=== PATIENT | male | born 1940 | race Caucasian/White ===

== ENCOUNTER 2020-05-09 09:43 | Emergency (ER) | payer OTHER, MEDICARE, SELFPAY ==
[2020-05-09 09:53] VITALS: BP 117/56; PULSE 62; RESP 18; TEMP 37.4; O2SAT 97; BMI 27.6
--- NOTE | 2020-05-09 09:56 | XR_ITS ---
WS: [id number] EXAM: AP CHEST: PORTABLE UPRIGHT DATE OF EXAM: 05/09/2020, 1021 hours COMPARISON: Prior chest x-rays from 05/17/2015 and 10/25/2018 HISTORY: Patient is 79 years old with weakness for the last few days. Prior open heart surgery 2009. Currently has a cough. FINDINGS: The cardiac silhouette is stable. Considered minimally enlarged. The mediastinal contours again de monstrate postop sternotomy changes from prior surgery. The pulmonary vascularity is normal. Chron ic lung changes are again demonstrated. There is worsening pulmonary vascular congestion or interstit ial fibrotic changes. Apical capping bilaterally. No large area of consolidation. There is no effusi on or pneumothorax. No acute bony abnormality is seen. XR/XR chest 1V portable [id number] IMPRESSION: Progressive pulmonary vascular congestion versus worsening interstitial fibroti c change. No florid pulmonary edema. No consolidating pneumonia.
--- NOTE | 2020-05-09 10:00 | ED_ITS ---
HPI - General Adult General: Chief complaint: Extremity Injury, Lower Stated complaint: COUGH/N/FREQUENT URINATION/WEAKNESS Time Seen by Provider: 05/09/20 09:47 History of Present Illness: HPI narrative: Patient then complaint is that frequency of urination started about 10:00 last night he said he had P 3?1 bed and peed about every hour after going to bed. Denies any prostate problems. 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 Said he had a slight cough but is not concerned about that. Denies fever chills nausea or vomiting. Onset (ago): hour(s) Associated symptoms: Deny chest pain, dyspnea, headache(s), nausea, rash or vomiting Review of Systems Const: Denies: fever(s), chills or body aches Eyes: Denies: change in vision or blurry vision ENMT: Denies: throat pain or nasal congestion Card: Denies: chest pain or dyspnea on exertion Resp: Denies: dyspnea, productive cough or non-productive cough GI: Denies: abdominal pain, nausea or vomiting : Reports: urinary frequency; Denies: difficulty urinating Musc: Denies: extremity pain Skin/Breast: Denies: rash Neuro: Reports: other (Burning in her right foot last couple months that wakes him up from sleep at times); Denies: headache(s) Psych: Denies: anxiety or depression Gee/Lymph: Denies: easy bruising [facility] ED PFSH: Medical History (Updated 05/09/20 @ 10:56 by LA Diaz) ASHD (arteriosclerotic heart disease) BPH NOS w ur obs/LUTS Chest pain CKD (chronic kidney disease) Essential hypertension Hyperlipidemia Myocardial infarction Nocturia Tobacco abuse Surgical History Previous back surgery S/P angioplasty with stent S/P CABG (coronary artery bypass graft) Family History Father CAD (coronary artery disease) Other Myocardial infarction Social History Smoking and tobacco status: former smoker Alcohol intake: never Lives independently: Yes Marital status: / service: Yes status details: 3 YEARS branch: [employer] Current gender identity: Male Susy/Rastafarian: Quaker Physical Exam Const: COMMON NORMALS: no acute distress, average body habitus and patient oriented x3 HENMT: COMMON NORMALS: normocephalic HEAD & SCALP: normal to inspection and normocephalic FACE & SINUS: normal facial exam Eye: COMMON NORMALS: conjunctivae normal GENERAL EYE: appearance normal, both eyes and all related structures CONJUNCTIVA: Yes conjunctivae normal Neck/C-Spine: COMMON NORMALS: no JVD Chest: COMMONS NORMALS: normal inspection of the chest Resp: COMMON NORMALS: normal respiratory effort and clear to auscultation bilaterally AUSCULTATION: clear to auscultation bilaterally Cardio: COMMON NORMALS: no JVD, regular rate and regular rhythm RATE: regular rate RHYTHM: regular rhythm GI: COMMON NORMALS: Normal to inspection, nondistended, normoactive bowel sounds present Extremity: COMMON NORMALS: normal to inspection and full ROM Neuro: COMMON NORMALS: patient oriented x3 Course Vital Signs: Vital signs: Vital Signs Temperature 99.4 F 05/09/20 11:29 Pulse Rate 56 L 05/09/20 11:29 Respiratory Rate 16 05/09/20 11:29 Blood Pressure 122/68 05/09/20 11:29 Pulse Oximetry 98 05/09/20 11:29 MDM - General Adult MDM Narrative: Medical decision making narrative: I discussed with patient his lab results and his symptoms. Discussed with him his pulmonary congestion he has that is related to his coronary or vascular disease. Also discussed with him his prostate symptoms that he is having here in the ER and cough and cold medicines he has been taken. Vies patient needs follow-up with his family doctor and discuss may be changes prostate medicine he said he is tried saw palmetto without any success and also super beta prostate without success. Patient will follow-up for venous Doppler of his leg. Today he does not have any redness swelling pulse deficits are any obvious congestion in that leg. Lab Data: Labs: Lab Results 05/09/20 05/09/20 05/09/20 Range/Units 10:13 10:13 10:25 WBC 4.2 (4.0-10.0) 10^3/ uL RBC 4.73 (4.1-5.3) 10^6/u L Hgb 13.8 (11.7-16.6) g/dL Hct 41.8 L (42.0-52.0) % MCV 88.4 (80-94) fL MCH 29.2 (28.0-34.0) pg MCHC 33.0 (30.0-36.0) g/dL RDW 13.8 (12.1-15.1) % Plt Count 119 L (130-400) 10^3/c mm MPV 10.5 H (7.4-10.4) fL Neut % (Auto) 67.4 % Lymph % (Auto) 17.3 % [place] % (Auto) 12.7 % Eos % (Auto) 2.4 % Baso % (Auto) 0.0 % Neut # (Auto) 2.81 (1.8-7.7) 10^3/u L Lymph # (Auto) 0.7 L (0.8-4.8) 10^3/u L [place] # (Auto) 0.5 (0.2-0.9) 10^3/u L Eos # (Auto) 0.1 (0.0-0.8) 10^3/u L Baso # (Auto) 0.0 (0.0-0.1) 10^3/u L Nucleated RBC % (a uto) 0 % Nucleated RBCs # 0.0 /100WBC Sodium 132 L (136-145) mmol/L Potassium 4.4 (3.5-5.1) mmol/L Chloride 99 (98-107) mmol/L Carbon Dioxide 22 (22-29) mmol/L Anion Gap 15.4 (5-19) BUN 15 (8-23) mg/dL Creatinine 1.3 H (0.7-1.2) mg/dL GFR Calculation Not Reportable Glucose 106 (65-115) mg/dL Calculated Osmolal ity 271 L (285-295) mOsm/k g Calcium 8.3 L (8.5-10.5) mg/dL Total Bilirubin 0.3 (0.15-1.2) mg/dL AST 22 (0-40) U/L ALT 12 (0-41) U/L Alkaline Phosphata se 64 (40-130) IU/L Total Protein 7.3 (6.6-8.7) g/dL Albumin 4.3 (3.5-5.2) g/dL Globulin 3.0 (1.3-4.6) g/dL Urine Color Yellow (Yellow) Urine Appearance Clear (CLEAR) Urine pH 6 (5-7) Ur Specific Gravit y 1.015 (1.005-1.030) Urine Protein Neg (Negative) Urine Glucose (UA) Norm (Normal) Urine Ketones Negative (Negative) Urine Blood Neg (Negative) Urine Nitrate Negative (Negative) Urine Bilirubin Neg (Negative) Urine Urobilinogen Norm (Negative) mg/dL Ur Leukocyte Lenore ase Negative (Negative) Discharge Plan Discharge Patient Disposition: Home Clinical Impression: Benign prostatic hyperplasia Qualifiers: Lower urinary tract symptom presence: symptoms present Lower urinary tract symptom detail: urinary frequency Qualified Code(s): N40.1 - Benign prostatic hyperplasia with lower urinary tract symptoms Condition: Stable Prescriptions: No Action amlodipine 10 mg tablet 10 mg PO DAILY Qty: 90 RF: 6 tamsulosin 0.4 mg capsule 0.4 mg PO BID Qty: 180 RF: 3 aspirin [Adult Low Dose Aspirin] 81 mg tablet,delayed release (DR/EC) 81 mg PO DAILY RF: 0 omega-3 fatty acids [Fish Oil Concentrate] 1,000 mg capsule 2,000 mg PO DAILY RF: 0 isosorbide mononitrate 30 mg tablet extended release 24 hr 30 mg PO QAM RF: 0 nitroglycerin [Nitrostat] 0.4 mg tablet, sublingual 0.4 mg SUBLINGUAL Q5M PRNRF: 0 pravastatin 40 mg tablet 40 mg PO .HS RF: 0 losartan 25 mg tablet 25 mg PO BID Qty: 180 RF: 6 metoprolol tartrate 25 mg tablet 25 mg PO BID Qty: 180 RF: 6 Discharge Orders: Discharge Order (Routine); Ordered 05/09/20 Ordered By: Mario Antonio Referrals: Luc Monroe [Primary Care Provider] - Discharge Diet: Advance as tolerated Discharge Activity: Increase activity as tolerated Patient Instructions: Benign Prostatic Hypertrophy (ED) Activity Restrictions/Additional Instructions: Follow-up with your scheduled appointments and your primary care doctor as directed please Discharge Date/Time: 05/09/20 11:32 Coding Level of Care Code 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
[2020-05-09 10:08] VITALS: BP 118/54; PULSE 58; PULSE 60; RESP 18; TEMP 37.4; O2SAT 96
[2020-05-09 10:24] LABS: Eosinophils # 0.1 10^3/uL (0.0-0.8); Eosinophils % 2.4 %; Hematocrit 41.8 % (42.0-52.0); Hemoglobin 13.8 g/dL (11.7-16.6); Lymphocytes # 0.7 10^3/uL (0.8-4.8); Lymphocytes % 17.3 %; Mean Corpuscular Hemoglobin 29.2 pg (28.0-34.0); Mean Corpuscular Volume 88.4 fL (80-94); Mean Platelet Volume 10.5 fL (7.4-10.4); Monocytes # 0.5 10^3/uL (0.2-0.9); Monocytes % 12.7 %; Neutrophils # 2.81 10^3/uL (1.8-7.7); Neutrophils % 67.4 %; Nucleated Red Blood Cells % 0 %; Platelet Count 119 10^3/cmm (130-400); Red Blood Count 4.73 10^6/uL (4.1-5.3); Red Cell Distribution Width 13.8 % (12.1-15.1); White Blood Count 4.2 10^3/uL (4.0-10.0)
[2020-05-09 10:36] LABS: Add Urine Microscopic? NO
[2020-05-09 10:39] LABS: Alanine Aminotransferase 12 U/L (0-41); Albumin Level 4.3 g/dL (3.5-5.2); Alkaline Phosphatase 64 IU/L (40-130); Anion Gap 15.4 (5-19); Aspartate Amino Transferase 22 U/L (0-40); Blood Urea Nitrogen 15 mg/dL (8-23); Calcium 8.3 mg/dL (8.5-10.5); Carbon Dioxide 22 mmol/L (22-29); Chloride 99 mmol/L (98-107); Glucose 106 mg/dL (65-115); Osmolality Calculated 271 mOsm/kg (285-295); Potassium 4.4 mmol/L (3.5-5.1); Sodium 132 mmol/L (136-145); Total Bilirubin 0.3 mg/dL (0.15-1.2); Total Protein 7.3 g/dL (6.6-8.7)
[2020-05-09 10:49] LABS: Urine Appearance Clear (CLEAR); Urine Color Yellow (Yellow)
[2020-05-09 10:50] LABS: Bilirubin Urine Neg (Negative); Blood Urine Neg (Negative); Glucose Urine UA Norm (Normal); Ketones Urine Negative (Negative); Leukocyte Esterase Urine Negative (Negative); Nitrate Urine Negative (Negative); Protein Urine Neg (Negative); Specific Gravity, Urine 1.015 (1.005-1.030); Urobilinogen Urine Norm (Negative); pH Urine 6 (5-7)
[2020-05-09 11:29] VITALS: BP 122/68; PULSE 56; RESP 16; TEMP 37.4; O2SAT 98
== END 2020-05-09 11:32 | disposition home or self-care (01) ==
PROVIDERS: Emergency Provider Nurse Practitioner Family; PCP Internal Medicine
DX: N40.1 Benign prostatic hyperplasia with lower urinary tract symptoms (principal); Z79.82 Long term (current) use of aspirin; I10 Essential (primary) hypertension; E78.5 Hyperlipidemia, unspecified; I25.2 Old myocardial infarction; Z95.1 Presence of aortocoronary bypass graft; Z87.891 Personal history of nicotine dependence
CPT/HCPCS: 12345; 71045; 80053; 81003; 85025; 99283

== ENCOUNTER 2020-05-11 13:22 | Inpatient (IN) | payer OTHER, MEDICARE, SELFPAY ==
[2020-05-11] VITALS (62 sets, daily range): BP systolic 99–142; BP diastolic 53–84; PULSE 43–87; RESP 14–28; TEMP 36.5–37.9; O2SAT 93–99; BMI 27.3
--- NOTE | 2020-05-11 14:05 | XR_ITS ---
WS: [id number] EXAM: AP CHEST: PORTABLE UPRIGHT DATE OF EXAM: 05/11/2020, 1422 hours COMPARISON: Chest x-ray from 2 days prior. HISTORY: Patient is 79 years old with shortness of breath. Suspected: 19 infection.. FINDINGS: The cardiac silhouette is stable. Considered slightly enlarged. The mediastinal contours are simila r. Postop sternotomy changes from prior surgery noted. The pulmonary vascularity is congested. 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 There are worsening bilateral alveolar as well as interstitial infiltrates suggesting worsening bilateral pneumonia. There is no effusion or pneumothorax. Bone density is de creased. Multilevel degenerative changes are seen in the spine. XR/XR chest 1V portable [id number] IMPRESSION: Worsening bilateral pneumonia.
[2020-05-11] MEDS: dexamethasone 10 mg/mL INJ IVP (14:18)
[2020-05-11] MEDS: sodium chloride 0.9% 500 ML 999 ML IV (14:18)
[2020-05-11] MEDS: acetaminophen 500 mg Tablet 1000 MG PO (14:20)
[2020-05-11] MEDS: ondansetron 2 mg/ML SDV 2 mL 4 MG IVP (14:20)
[2020-05-11 14:26] LABS: Eosinophils % 0.3 %; Hematocrit 39.8 % (42.0-52.0); Hemoglobin 13.4 g/dL (11.7-16.6); Lymphocytes # 0.6 10^3/uL (0.8-4.8); Mean Corpuscular HGB Conc 33.7 g/dL (30.0-36.0); Mean Corpuscular Hemoglobin 29.3 pg (28.0-34.0); Mean Corpuscular Volume 86.9 fL (80-94); Mean Platelet Volume 11.1 fL (7.4-10.4); Monocytes # 0.4 10^3/uL (0.2-0.9); Monocytes % 10.8 %; Neutrophils # 2.49 10^3/uL (1.8-7.7); Neutrophils % 72.6 %; Nucleated Red Blood Cells % 0 %; Platelet Count 92 10^3/cmm (130-400); Red Blood Count 4.58 10^6/uL (4.1-5.3); Red Cell Distribution Width 13.7 % (12.1-15.1); White Blood Count 3.4 10^3/uL (4.0-10.0)
--- NOTE | 2020-05-11 14:26 | ED_ITS ---
HPI - Fever General: Chief Complaint: Fever Stated Complaint: Fever Time Seen by Provider: 05/11/20 13:34 History of Present Illness: HPI Narrative: This patient is an 79-year-old male presenting with fever and cough. He said he has been feeling poorly since hursday of last week putting him on day 7 of his illness. He has been having muscle aches, cough, shortness of breath, nausea. He was not aware of having a fever until he went to the DC this afternoon and was told he had a fever of 102. He was sent to the ED to be evaluated for possible coronavirus infection. He is not aware of having been around anyone who was positive for COVID or being tested for COVID however he notes that his son and [id number] came to visit on weekend and they both had colds. He was seen in the ED on Saturday but did not mention these complaints at that time apparently. He was worked up for urinary frequency and the reason he was at the DC today was as a follow-up for BPH. He said he is continued to have urinary frequency since then. He also has a history of coronary disease with stents and hypertension. He denies diabetes or lung disease. MD elicited complaint: fever, malaise and weakness Onset (ago): day(s) (7) Context: sick contacts Exacerbating factors: nothing Relieving factors: nothing Associated symptoms: Reports cough, dysuria, extremity pain (He is scheduled for an arterial ultrasound to evaluate for claudication), myalgias, nausea and short of breath; Deny chills, chest pain or headache(s) Review of Systems General: Reports: 10 or more systems reviewed and unremarkable except in HPI and below Const: Reports: fever(s), body aches, fatigue and malaise; Denies: chills Eyes: Denies: change in vision ENMT: Denies: odynophagia Card: Denies: chest pain or swelling of feet/ankles Resp: Reports: dyspnea and non-productive cough; Denies: productive cough GI: Reports: nausea : Reports: dysuria and urinary frequency Musc: Reports: extremity pain (He is scheduled for an arterial ultrasound to evaluate for claudication); Denies: neck pain or back pain Skin/Breast: Denies: rash Neuro: Denies: headache(s), numbness in extremities or weakness in extremities Gee/Lymph: Denies: easy bruising or easy bleeding [facility] ED PFSH: Medical History (Updated 05/11/20 @ 16:12 by Livia Arias MD) ASHD (arteriosclerotic heart disease) BPH NOS w ur obs/LUTS Chest pain CKD (chronic kidney disease) Essential hypertension GERD (gastroesophageal reflux disease) Hyperlipidemia Myocardial infarction Nocturia Tobacco abuse Surgical History Previous back surgery S/P angioplasty with stent S/P CABG (coronary artery bypass graft) Family History Father CAD (coronary artery disease) Other Myocardial infarction Social History Smoking and tobacco status: former smoker Alcohol intake: never Lives independently: Yes Marital status: / service: Yes status details: 3 YEARS branch: [employer] Current gender identity: Male Susy/Synagogue: Religious Physical Exam Narrative: EXAM NARRATIVE: Tachypnea, sat 91% on room air Const: COMMON NORMALS: no acute distress, patient oriented x3, no limitations and alert GENERAL APPEARANCE: cooperative HENMT: HEAD & SCALP: normal to inspection FACE & SINUS: normal facial exam Eye: GENERAL EYE: appearance normal, both eyes and all related structures Neck/C-Spine: COMMON NORMALS: supple, no meningeal signs and no JVD Chest: COMMONS NORMALS: normal inspection of the chest Resp: COMMON NORMALS: No use of accessory muscles EFFORT & INSPECTION: Yes tachypneic and Yes labored (Slightly) AUSCULTATION: crackles (Scattered) Cardio: COMMON NORMALS: no JVD, regular rate, regular rhythm and No murmurs present (Cardio) RATE: regular rate RHYTHM: regular rhythm GI: COMMON NORMALS: Normal to inspection, nondistended, normoactive bowel sounds present, Soft to palpation and non-tender INSPECTION: Yes normal to inspection AUSCULTATION: Yes normoactive bowel sounds PALPATION: Yes Soft to palpation Back/Pelvis: COMMON NORMALS: thoracic and lumbar spine normal to inspection Extremity: COMMON NORMALS: normal to inspection Neuro: COMMON NORMALS: patient oriented x3, moves all extremities, no focal motor deficits and no sensory deficits noted SENSORIUM/ORIENTATION: Yes alert MENINGEAL SIGNS: Yes no meningeal signs Psych: COMMON NORMALS: mental status grossly normal, cooperative and normal affect Skin: COMMON NORMALS: no rashes or lesions noted and turgor normal GENERAL SKIN EXAM: no rashes or lesions noted and turgor normal Course ED course: Patient with fever and signs and symptoms of COVID. He is also having some ongoing urinary frequency and the urine will be obtained when he can provide one. Sats are borderline. He has some risk factors of hypertension and heart disease. He is not a diabetic. He will be admitted to the viral ICU. I have given him Decadron, Lovenox, remdesivir. Vital Signs: Vital signs: Vital Signs Temperature 97.7 F 05/11/20 17:35 Pulse Rate 48 L 05/12/20 04:15 Respiratory Rate 6 L 05/12/20 04:15 Blood Pressure 132/66 05/12/20 04:15 Pulse Oximetry 94 05/12/20 04:15 MDM - Fever Lab Data: Labs: Lab Results 05/11/20 05/11/20 05/11/20 Range/Units 14:15 14:15 14:15 WBC 3.4 L (4.0-10.0) 10^3/ uL RBC 4.58 (4.1-5.3) 10^6/u L Hgb 13.4 (11.7-16.6) g/dL Hct 39.8 L (42.0-52.0) % MCV 86.9 (80-94) fL MCH 29.3 (28.0-34.0) pg MCHC 33.7 (30.0-36.0) g/dL RDW 13.7 (12.1-15.1) % Plt Count 92 L (130-400) 10^3/c mm MPV 11.1 H (7.4-10.4) fL Neut % (Auto) 72.6 % Lymph % (Auto) 16.0 % [place] % (Auto) 10.8 % Eos % (Auto) 0.3 % Baso % (Auto) 0.0 % Neut # (Auto) 2.49 (1.8-7.7) 10^3/u L Lymph # (Auto) 0.6 L (0.8-4.8) 10^3/u L [place] # (Auto) 0.4 (0.2-0.9) 10^3/u L Eos # (Auto) 0.0 (0.0-0.8) 10^3/u L Baso # (Auto) 0.0 (0.0-0.1) 10^3/u L Nucleated RBC % (a uto) 0 % Nucleated RBCs # 0.0 /100WBC PT 12.70 (12.1-14.9) SECO NDS INR 0.93 (0.8-1.2) Fibrinogen 480 (174-498) mg/dL D-Dimer 1.67 H (0-0.59) ug/mIFE U Sodium 131 L (136-145) mmol/L Potassium 4.2 (3.5-5.1) mmol/L Chloride 97 L (98-107) mmol/L Carbon Dioxide 20 L (22-29) mmol/L Anion Gap 18.2 (5-19) BUN 20 (8-23) mg/dL Creatinine 1.3 H (0.7-1.2) mg/dL GFR Calculation Not Reportable Glucose 147 H (65-115) mg/dL Calculated Osmolal ity 277 L (285-295) mOsm/k g Lactic Acid (0.5-2.2) mmol/L Calcium 8.5 (8.5-10.5) mg/dL Ferritin 1156 H (30-400) ng/mL Total Bilirubin 0.4 (0.15-1.2) mg/dL AST 30 (0-40) U/L ALT 12 (0-41) U/L Alkaline Phosphata se 62 (40-130) IU/L Troponin T Gen 5 n g/L (0-15) ng/L C-Reactive Protein 29.2 H (0.0-4.9) mg/L NT-Pro-B Natriuret Pep 551 H (0-450) pg/mL Total Protein 7.3 (6.6-8.7) g/dL Albumin 4.2 (3.5-5.2) g/dL Globulin 3.1 (1.3-4.6) g/dL Procalcitonin 0.14 (0-0.5) ng/mL Influenza Type A A g (Negative) Influenza Type B A g (Negative) SARS-CoV-2 Ag (Rap id) (Negative) 05/11/20 05/11/20 05/11/20 Range/Units 14:15 14:15 14:15 WBC (4.0-10.0) 10^3/ uL RBC (4.1-5.3) 10^6/u L Hgb (11.7-16.6) g/dL Hct (42.0-52.0) % MCV (80-94) fL MCH (28.0-34.0) pg MCHC (30.0-36.0) g/dL RDW (12.1-15.1) % Plt Count (130-400) 10^3/c mm MPV (7.4-10.4) fL Neut % (Auto) % Lymph % (Auto) % [place] % (Auto) % Eos % (Auto) % Baso % (Auto) % Neut # (Auto) (1.8-7.7) 10^3/u L Lymph # (Auto) (0.8-4.8) 10^3/u L [place] # (Auto) (0.2-0.9) 10^3/u L Eos # (Auto) (0.0-0.8) 10^3/u L Baso # (Auto) (0.0-0.1) 10^3/u L Nucleated RBC % (a uto) % Nucleated RBCs # /100WBC PT (12.1-14.9) SECO NDS INR (0.8-1.2) Fibrinogen (174-498) mg/dL D-Dimer (0-0.59) ug/mIFE U Sodium (136-145) mmol/L Potassium (3.5-5.1) mmol/L Chloride (98-107) mmol/L Carbon Dioxide (22-29) mmol/L Anion Gap (5-19) BUN (8-23) mg/dL Creatinine (0.7-1.2) mg/dL GFR Calculation Glucose (65-115) mg/dL Calculated Osmolal ity (285-295) mOsm/k g Lactic Acid 1.6 (0.5-2.2) mmol/L Calcium (8.5-10.5) mg/dL Ferritin (30-400) ng/mL Total Bilirubin (0.15-1.2) mg/dL AST (0-40) U/L ALT (0-41) U/L Alkaline Phosphata se (40-130) IU/L Troponin T Gen 5 n g/L 15 (0-15) ng/L C-Reactive Protein (0.0-4.9) mg/L NT-Pro-B Natriuret Pep (0-450) pg/mL Total Protein (6.6-8.7) g/dL Albumin (3.5-5.2) g/dL Globulin (1.3-4.6) g/dL Procalcitonin (0-0.5) ng/mL Influenza Type A A g (Negative) Influenza Type B A g (Negative) SARS-CoV-2 Ag (Rap id) Positive H (Negative) 05/11/20 Range/Units 14:35 WBC (4.0-10.0) 10^3/ uL RBC (4.1-5.3) 10^6/u L Hgb (11.7-16.6) g/dL Hct (42.0-52.0) % MCV (80-94) fL MCH (28.0-34.0) pg MCHC (30.0-36.0) g/dL RDW (12.1-15.1) % Plt Count (130-400) 10^3/c mm MPV (7.4-10.4) fL Neut % (Auto) % Lymph % (Auto) % [place] % (Auto) % Eos % (Auto) % Baso % (Auto) % Neut # (Auto) (1.8-7.7) 10^3/u L Lymph # (Auto) (0.8-4.8) 10^3/u L [place] # (Auto) (0.2-0.9) 10^3/u L Eos # (Auto) (0.0-0.8) 10^3/u L Baso # (Auto) (0.0-0.1) 10^3/u L Nucleated RBC % (a uto) % Nucleated RBCs # /100WBC PT (12.1-14.9) SECO NDS INR (0.8-1.2) Fibrinogen (174-498) mg/dL D-Dimer (0-0.59) ug/mIFE U Sodium (136-145) mmol/L Potassium (3.5-5.1) mmol/L Chloride (98-107) mmol/L Carbon Dioxide (22-29) mmol/L Anion Gap (5-19) BUN (8-23) mg/dL Creatinine (0.7-1.2) mg/dL GFR Calculation Glucose (65-115) mg/dL Calculated Osmolal ity (285-295) mOsm/k g Lactic Acid (0.5-2.2) mmol/L Calcium (8.5-10.5) mg/dL Ferritin (30-400) ng/mL Total Bilirubin (0.15-1.2) mg/dL AST (0-40) U/L ALT (0-41) U/L Alkaline Phosphata se (40-130) IU/L Troponin T Gen 5 n g/L (0-15) ng/L C-Reactive Protein (0.0-4.9) mg/L NT-Pro-B Natriuret Pep (0-450) pg/mL Total Protein (6.6-8.7) g/dL Albumin (3.5-5.2) g/dL Globulin (1.3-4.6) g/dL Procalcitonin (0-0.5) ng/mL Influenza Type A A g Negative (Negative) Influenza Type B A g Negative (Negative) SARS-CoV-2 Ag (Rap id) (Negative) Discharge Plan Discharge Patient Disposition: Admitted As Inpatient Admit Provider: Carlitos Sanchez Clinical Impression: COVID-19, Pneumonia, viral, Hypoxia Condition: Stable Discharge Date/Time: 05/11/20 17:06 Coding Level of Care Code ED 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
[2020-05-11 14:34] LABS: Fibrinogen 480 mg/dL (174-498); INR 0.93 (0.8-1.2)
[2020-05-11 14:37] LABS: D Dimer 1.67 ug/mIFEU (0-0.59)
[2020-05-11 14:38] LABS: Lactic Sepsis W/Reflex 1.6 mmol/L (0.5-2.2)
[2020-05-11 14:40] LABS: Troponin T (5th) Once 15 ng/L (0-15)
[2020-05-11 14:50] LABS: SARS Covid-2 Antigen Positive (Negative)
[2020-05-11 15:33] LABS: Influenza A by IFA Negative (Negative); Influenza B by IFA Negative (Negative)
--- NOTE | 2020-05-11 15:39 | P.HP_ITS ---
Providers/Chief Complaint Primary Care Provider: Luc Monroe Chief Complaint: TEMP History of Present Illness Raphael Saldana is a 79 year old male that presents with illness for the last 6 days. He reports initially nasal congestion, nonproductive cough. In the last day he has had some nausea, decreased oral intake, fever, and shortness of breath. He denies any specific contacts with COVID that he is aware of. He has tested COVID positive by rapid test in the emergency department. He denies any vomiting. He has had no diarrhea. He denies any chest discomfort. No diarrhea. Review of Systems General: Reports: 10 or more systems reviewed and unremarkable except in HPI and below Const: Reports: fever(s) and body aches Eyes: Denies: change in vision ENMT: Denies: throat pain Card: Denies: chest pain Resp: Reports: dyspnea and non-productive cough GI: Reports: nausea; Denies: abdominal pain or vomiting : Denies: flank pain Musc: Denies: neck pain Skin/Breast: Denies: rash Neuro: Denies: headache(s) Psych: Denies: anxiety Endo: Denies: polyuria Gee/Lymph: Denies: easy bruising All/Imm: Denies: urticaria Medications/Allergies Home Medications Medication Instructions Recorded Confirmed Last Taken Type aspirin 81 mg tablet,delayed 81 mg PO BID tab 09/07/19 05/11/20 05/11/20 History release isosorbide mononitrate 30 mg 30 mg PO QAM 09/07/19 05/11/20 05/11/20 History tablet,extended release 24 hr nitroglycerin 0.4 mg sublingual 0.4 mg SUBLINGUAL Q5M PRN 09/07/19 05/11/20 Unknown History tablet pravastatin 40 mg tablet 40 mg PO BEDTIME tab 09/07/19 05/11/20 05/10/20 History tamsulosin 0.4 mg capsule 0.4 mg PO BID #180 cap 12/15/19 05/11/20 05/11/20 Rx amlodipine 10 mg tablet 10 mg PO DAILY #90 tab 03/10/20 05/11/20 05/11/20 Rx losartan 25 mg tablet 25 mg PO BID #180 tab 03/10/20 05/11/20 05/11/20 Rx metoprolol tartrate 25 mg tablet 25 mg PO BID #180 tab 03/10/20 05/11/20 05/11/20 Rx Allergies Allergy/AdvReac Type Severity Reaction Status Date / Time No Known Allergies Allergy Verified 05/05/20 12:58 PFSH Acute PFSH: Medical History (Updated 05/11/20 @ 15:43 by Carlitos Sanchez MD) ASHD (arteriosclerotic heart disease) BPH NOS w ur obs/LUTS Chest pain CKD (chronic kidney disease) Essential hypertension GERD (gastroesophageal reflux disease) Hyperlipidemia Myocardial infarction Nocturia Tobacco abuse Surgical History Previous back surgery S/P angioplasty with stent S/P CABG (coronary artery bypass graft) Family History Father CAD (coronary artery disease) Other Myocardial infarction Social History Smoking and tobacco status: former smoker Alcohol intake: never Lives independently: Yes Marital status: / service: Yes status details: 3 YEARS branch: [employer] Current gender identity: Male Susy/Episcopalian: Protestant Vitals/I&O/Wt Last Vital Signs Temp 100.2 F H 05/11/20 13:23 Pulse 64 05/11/20 15:17 Resp 22 H 05/11/20 15:17 BP 101/59 05/11/20 15:17 Pulse Ox 97 05/11/20 15:17 Weight last 48 hrs Weight 83.915 kg Physical Exam Narrative: EXAM NARRATIVE: General exam is a conversive white male, in no apparent distress HEENT: Pupils equally round. Oropharynx clear. Neck is supple no lymphadenopathy or thyromegaly Cardiovascular regular rate and rhythm with a 2/6 systolic murmur Lungs clear no wheezing or crackles Abdomen is soft nontender with positive bowel sounds. No obvious organomegaly was deferred Extremities no cyanosis clubbing or edema, cap refill brisk Skin no rash Neuro no focal deficits Data : 05/11/20 14:15 05/11/20 14:15 Micro: Microbiology 05/11/20 14:20 Blood Culture - Preliminary Blood SPECIMEN COLLECTED 05/11/20 14:15 Blood Culture - Preliminary Blood SPECIMEN COLLECTED Other data: Chest x-ray bilateral infiltrates, possible underlying pulmonary fibrosis as well. Status post coronary artery bypass grafting. D-dimer 1.67. CMP pending Troponin XV Procalcitonin pending Influenza negative Rapid COVID antigen positive A&P Assessment and plan (1) Pneumonia due to COVID-19 virus: Initiate Dexamethsone Start Remdisivir Hydration cautiously Oxygen Continue supportive care Repeat inflammatory markers tomorrow If d-dimer increases significantly consider full anticoagulation Doxycycline p.o. at this point, unless procalcitonin significantly elevated for concern of underlying lung disease, Covid 19 pneumonia with superimposed bacterial infection. Status: Acute Additional A&P Information History of coronary artery disease, currently asymptomatic Likely underlying chronic lung disease. Combivent as needed History of BPH. 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
[2020-05-11] MEDS: enoxaparin 80 mg/0.8 mL Syringe SUBCUT (15:42)
[2020-05-11 15:50] LABS: NT Pro B Type Natriuretic Pept 551 pg/mL (0-450); Procalcitonin 0.14 ng/mL (0-0.5)
[2020-05-11 16:04] LABS: Alanine Aminotransferase 12 U/L (0-41); Albumin Level 4.2 g/dL (3.5-5.2); Alkaline Phosphatase 62 IU/L (40-130); Anion Gap 18.2 (5-19); Aspartate Amino Transferase 30 U/L (0-40); Blood Urea Nitrogen 20 mg/dL (8-23); C Reactive Protein 29.2 mg/L (0.0-4.9); Calcium 8.5 mg/dL (8.5-10.5); Carbon Dioxide 20 mmol/L (22-29); Chloride 97 mmol/L (98-107); Globulin 3.1 g/dL (1.3-4.6); Glucose 147 mg/dL (65-115); Osmolality Calculated 277 mOsm/kg (285-295); Potassium 4.2 mmol/L (3.5-5.1); Sodium 131 mmol/L (136-145); Total Bilirubin 0.4 mg/dL (0.15-1.2); Total Protein 7.3 g/dL (6.6-8.7)
[2020-05-11 16:30] LABS: Add Urine Microscopic? YES; Bilirubin Urine Neg (Negative); Blood Urine 2+ (Negative); Glucose Urine UA Norm (Normal); Ketones Urine Negative (Negative); Leukocyte Esterase Urine Negative (Negative); Nitrate Urine Negative (Negative); Protein Urine Trace (Negative); Specific Gravity, Urine 1.015 (1.005-1.030); Urine Appearance Clear (CLEAR); Urine Color Yellow (Yellow); Urobilinogen Urine Norm (Negative); pH Urine 5 (5-7)
[2020-05-11 16:31] LABS: Ferritin 1156 ng/mL (30-400)
[2020-05-11 16:40] LABS: Hyaline Casts Urine 0-4 /lpf
[2020-05-11 16:41] LABS: Add Urine Culture? No; Bacteria Urine TRACE /hpf; RBC Urine 0-4 /hpf (0-2); Squamous Epithelial Cell Urine 0-4 /hpf (0-5)
[2020-05-11] MEDS: losartan 50 mg Tablet 25 MG PO (19:43)
[2020-05-11] MEDS: doxycycline 100 mg Tablet PO (19:43)
[2020-05-11] MEDS: tamsulosin 0.4 mg Capsule PO (19:44)
[2020-05-11] MEDS: aspirin 81 mg EC Tablet PO (19:44)
[2020-05-11] MEDS: metoprolol tartrate 25 mg Tablet PO (19:44)
[2020-05-11] MEDS: atorvastatin 40 mg Tablet 20 MG PO (20:39)
[2020-05-11] MEDS: sodium chloride 0.9% 1,000 ML 50 ML IV (20:45)
[2020-05-12] VITALS (47 sets, daily range): BP systolic 95–152; BP diastolic 52–91; PULSE 40–68; RESP 6–24; TEMP 36.6–36.7; O2SAT 86–98
[2020-05-12 05:07] LABS: Hematocrit 37.4 % (42.0-52.0); Hemoglobin 11.9 g/dL (11.7-16.6); Lymphocytes # 0.5 10^3/uL (0.8-4.8); Lymphocytes % 21.7 %; Mean Corpuscular HGB Conc 31.8 g/dL (30.0-36.0); Mean Corpuscular Hemoglobin 28.7 pg (28.0-34.0); Mean Corpuscular Volume 90.1 fL (80-94); Mean Platelet Volume 11.6 fL (7.4-10.4); Monocytes # 0.2 10^3/uL (0.2-0.9); Monocytes % 8.3 %; Neutrophils # 1.67 10^3/uL (1.8-7.7); Neutrophils % 69.6 %; Nucleated Red Blood Cells % 0 %; Platelet Count 78 10^3/cmm (130-400); Red Blood Count 4.15 10^6/uL (4.1-5.3); White Blood Count 2.4 10^3/uL (4.0-10.0)
[2020-05-12 05:40] LABS: Alanine Aminotransferase 10 U/L (0-41); Albumin Level 3.6 g/dL (3.5-5.2); Alkaline Phosphatase 52 IU/L (40-130); Aspartate Amino Transferase 25 U/L (0-40); Blood Urea Nitrogen 21 mg/dL (8-23); C Reactive Protein 27.5 mg/L (0.0-4.9); Calcium 7.4 mg/dL (8.5-10.5); Carbon Dioxide 20 mmol/L (22-29); Chloride 103 mmol/L (98-107); Globulin 2.9 g/dL (1.3-4.6); Glucose 138 mg/dL (65-115); Osmolality Calculated 281 mOsm/kg (285-295); Sodium 133 mmol/L (136-145); Total Bilirubin 0.3 mg/dL (0.15-1.2); Total Protein 6.5 g/dL (6.6-8.7)
[2020-05-12 05:46] LABS: D Dimer 0.99 ug/mIFEU (0-0.59)
[2020-05-12 05:59] LABS: Ferritin 1115 ng/mL (30-400)
[2020-05-12] MEDS: isosorbide mononitrate ER 30 mg Tablet PO (06:12)
[2020-05-12] MEDS: tamsulosin 0.4 mg Capsule PO ×2 (08:12→17:20)
[2020-05-12] MEDS: dexamethasone 4 mg Tablet 6 MG PO (08:12)
[2020-05-12] MEDS: doxycycline 100 mg Tablet PO ×2 (08:12→17:19)
[2020-05-12] MEDS: aspirin 81 mg EC Tablet PO ×2 (08:12→17:19)
[2020-05-12] MEDS: amlodipine 10 mg Tablet PO (08:13)
[2020-05-12] MEDS: losartan 50 mg Tablet 25 MG PO ×2 (08:13→17:18)
--- NOTE | 2020-05-12 12:18 | PC.NURSE ---
Dr Sanchez on floor. notified that i held patient's metoprolol this morning due to heartrate in the 50's. MD camacho'd. also md goins'd normal saline.
--- NOTE | 2020-05-12 12:45 | PM.PN ---
Subjective Subjective: Interval history: Raphael reports he feels a lot better. He is not short of breath. He feels like he can eat. Medications: Reviewed: Yes Vitals/I&O/Wt Last Vital Signs Temp 97.8 F 05/12/20 11:59 Pulse 58 L 05/12/20 11:45 Resp 18 05/12/20 11:45 BP 126/63 05/12/20 11:45 Pulse Ox 97 05/12/20 11:45 05/11/20 05/12/20 05/12/20 22:59 06:59 14:59 Intake Total 600 / 600 220 / 820 660 / 660 Output Total 525 / 525 275 / 800 450 / 450 Balance 75 / 75 -55 / 20 210 / 210 Weight last 48 hrs Weight 83.915 kg Physical Exam Narrative: EXAM NARRATIVE: General exam no apparent distress Cardiovascular regular rate and rhythm with a 2/6 systolic murmur Lungs clear no wheezing or crackles Abdomen is soft nontender with positive bowel sounds. No obvious organomegaly was deferred Extremities no cyanosis clubbing or edema, cap refill brisk Data : 05/12/20 04:30 05/12/20 04:30 Micro: Microbiology 05/11/20 14:20 Blood Culture - Preliminary Blood SPECIMEN COLLECTED 05/11/20 14:15 Blood Culture - Preliminary Blood SPECIMEN COLLECTED A&P Assessment and plan (1) Pneumonia due to COVID-19 virus: Continue Dexamethsone Continue Remdisivir Discontinue hydration Oxygen as needed. Taper if possible Continue supportive care Doxycycline p.o. for concern of superimposed bacterial infection Status: Acute Additional A&P Information History of coronary artery disease, currently asymptomatic. He has some significant bradycardia so we will lower his metoprolol to 12.5 mg twice daily Likely underlying chronic lung disease. Combivent as needed History of BPH. Continue Flomax Hypertension Hyperlipidemia Full code currently Lovenox for DVT prophylaxis Attestations Medical Necessity Statement*: Needs continued hospitalization for treatment of moderate COVID with dexamethasone and remdesivir and supportive care Coding Level of Care Code Acute Hr Shared Services Consultant for Radha Ames Diagnoses Pneumonia due to COVID-19 virus U07.1; J12.89
[2020-05-12] MEDS: enoxaparin 40 mg/0.4 mL Syringe SUBCUT (17:22)
[2020-05-12] MEDS: atorvastatin 40 mg Tablet 20 MG PO (20:26)
[2020-05-13] VITALS (11 sets, daily range): BP systolic 112–144; BP diastolic 58–73; PULSE 51–66; RESP 19–25; TEMP 36.2–36.7; O2SAT 91–95
[2020-05-13 05:13] LABS: Basophils % 0.1 %; Hematocrit 41.9 % (42.0-52.0); Hemoglobin 13.6 g/dL (11.7-16.6); Lymphocytes # 0.9 10^3/uL (0.8-4.8); Lymphocytes % 6.2 %; Mean Corpuscular HGB Conc 32.5 g/dL (30.0-36.0); Mean Corpuscular Hemoglobin 28.7 pg (28.0-34.0); Mean Corpuscular Volume 88.4 fL (80-94); Mean Platelet Volume 12.5 fL (7.4-10.4); Monocytes # 0.9 10^3/uL (0.2-0.9); Monocytes % 6.5 %; Neutrophils # 11.92 10^3/uL (1.8-7.7); Neutrophils % 86.5 %; Nucleated Red Blood Cells % 0 %; Platelet Count 112 10^3/cmm (130-400); Red Blood Count 4.74 10^6/uL (4.1-5.3); Red Cell Distribution Width 13.9 % (12.1-15.1); White Blood Count 13.8 10^3/uL (4.0-10.0)
[2020-05-13 05:44] LABS: Alanine Aminotransferase 13 U/L (0-41); Albumin Level 3.9 g/dL (3.5-5.2); Alkaline Phosphatase 57 IU/L (40-130); Anion Gap 15.6 (5-19); Aspartate Amino Transferase 31 U/L (0-40); Blood Urea Nitrogen 28 mg/dL (8-23); Calcium 8.4 mg/dL (8.5-10.5); Carbon Dioxide 21 mmol/L (22-29); Chloride 99 mmol/L (98-107); Globulin 3.1 g/dL (1.3-4.6); Glucose 115 mg/dL (65-115); Osmolality Calculated 278 mOsm/kg (285-295); Potassium 4.6 mmol/L (3.5-5.1); Sodium 131 mmol/L (136-145); Total Bilirubin 0.4 mg/dL (0.15-1.2)
[2020-05-13] MEDS: isosorbide mononitrate ER 30 mg Tablet PO (06:23)
[2020-05-13] MEDS: amlodipine 10 mg Tablet PO (09:31)
[2020-05-13] MEDS: doxycycline 100 mg Tablet PO (09:31)
[2020-05-13] MEDS: losartan 50 mg Tablet 25 MG PO (09:31)
[2020-05-13] MEDS: aspirin 81 mg EC Tablet PO (09:31)
[2020-05-13] MEDS: metoprolol tartrate 25 mg Tablet PO (09:32)
[2020-05-13] MEDS: dexamethasone 4 mg Tablet 6 MG PO (09:32)
[2020-05-13] MEDS: tamsulosin 0.4 mg Capsule PO (09:33)
--- NOTE | 2020-05-13 11:03 | PM.DCS ---
Discharge Providers Date of Admission: 05/11/20 15:36 Date of Discharge: May 13, 2020 Attending Provider at Admission: Carlitos Sanchez MD Attending Provider at Discharge: Carlitos Sanchez MD Primary Care Provider: Luc Monroe Diagnoses at Discharge Discharge Diagnosis (1) Pneumonia due to COVID-19 virus: Status: Acute Reason for Visit Reason for Visit: [facility] [place] Hospital Course Hospital Course: Raphael is an 79-year-old white male who presents to the hospital with history of illness for 6 days, nasal congestion and cough. Short of breath on day of admission. Tested with rapid COVID positive. Required 2 L of oxygen. He was admitted and remdesivir was initiated as well as dexamethasone. Doxycycline was added secondary to possibility of superimposed bacterial infection. While in the hospital he improved significantly and was able to wean off oxygen on the . He stayed off oxygen and was able to be discharged on the . He was ambulating around the room without any significant reduction in normal oxygen levels. A home oxygen evaluation was ordered prior to discharge, and no oxygen required. Physical Exam Narrative: EXAM NARRATIVE: General exam no apparent distress Cardiovascular regular in rhythm without murmur Lungs clear but diminished breath sounds bilaterally Abdomen is soft with positive bowel sounds Extremities no cyanosis clubbing or edema Discharge Data Data Completed and Pending: Completed Studies During Hospitalization Category Date Time Status XR chest 1V martin ble [id number] Stat Exams 05/11/20 14:05 Completed Pending at discharge Category Date Time Status Blood Culture Sta t Lab 05/11/20 14:20 Results Labs from last 24 hours 05/13/20 05/13/20 04:05 04:05 WBC 13.8 H RBC 4.74 Hgb 13.6 Hct 41.9 L MCV 88.4 MCH 28.7 MCHC 32.5 RDW 13.9 Plt Count 112 L MPV 12.5 H Neut % (Auto) 86.5 Lymph % (Auto) 6.2 [place] % (Auto) 6.5 Eos % (Auto) 0.0 Baso % (Auto) 0.1 Neut # (Auto) 11.92 H Lymph # (Auto) 0.9 [place] # (Auto) 0.9 Eos # (Auto) 0.0 Baso # (Auto) 0.0 Nucleated RBC % (a uto) 0 Nucleated RBCs # 0.0 Sodium 131 L Potassium 4.6 Chloride 99 Carbon Dioxide 21 L Anion Gap 15.6 BUN 28 H Creatinine 1.1 GFR Calculation Not Reportable Glucose 115 Calculated Osmolal ity 278 L Calcium 8.4 L Total Bilirubin 0.4 AST 31 ALT 13 Alkaline Phosphata se 57 Total Protein 7.0 Albumin 3.9 Globulin 3.1 Vitals: Last Vital Signs Temp 97.2 F L 05/13/20 08:31 Pulse 63 05/13/20 08:31 Resp 25 H 05/13/20 08:31 BP 144/73 05/13/20 09:31 Pulse Ox 92 05/13/20 08:31 Discharge Plan Discharge Patient Disposition: Home Condition: Stable Prescriptions: New doxycycline monohydrate 100 mg Tablet 100 mg PO BID Qty: 8 RF: 0 dexamethasone 4 mg Tablet 6 mg PO DAILY Qty: 3 RF: 0 Continued amlodipine 10 mg tablet 10 mg PO DAILY Qty: 90 RF: 6 tamsulosin 0.4 mg capsule 0.4 mg PO BID Qty: 180 RF: 3 aspirin [Adult Low Dose Aspirin] 81 mg tablet,delayed release (DR/EC) 81 mg PO BID RF: 0 isosorbide mononitrate 30 mg tablet extended release 24 hr 30 mg PO QAM RF: 0 nitroglycerin [Nitrostat] 0.4 mg tablet, sublingual 0.4 mg SUBLINGUAL Q5M PRN (Reason: Chest Pain) RF: 0 pravastatin 40 mg tablet 40 mg PO BEDTIME RF: 0 losartan 25 mg tablet 25 mg PO BID Qty: 180 RF: 6 metoprolol tartrate 25 mg tablet 25 mg PO BID Qty: 180 RF: 6 Discharge Orders: Discharge Order (Routine); Ordered 05/13/20 Ordered By: Carlitos Sanchez Referrals: Luc Monroe [Primary Care Provider] - 4-7 days Discharge Diet: Cardiac Discharge Activity: Increase activity as tolerated Patient Instructions: Doxycycline (By mouth), Dexamethasone (By mouth), Viral Pneumonia (DC), Airborne Precautions (DC), Contact Precautions (DC), Pneumonia Stoplight Activity Restrictions/Additional Instructions: Take all medicine as prescribed. Return for any worsening. Discharge Attestations Time Spent in Discharge Care*: greater than 30 min Quality Metrics Clinical Quality Measures During this hospital stay, did patient experience: None Coding Level of Care Code Acute Driver Examiner for Radha Ames Diagnoses Pneumonia due to COVID-19 virus U07.1; J12.89
--- NOTE | 2020-05-13 11:58 | PC.NURSE ---
home o2 eval pt does not qualify per RT evaluation. is notified.
--- NOTE | 2020-05-13 12:00 | PC.NURSE ---
Informed pt that he will have a follow-up appointment via telephone visit on SaturdayMay 23 t 2:30 pm Educated pt on his new prescribed meds dosages, timing, possible side effects. Pt verbalizes understanding. Called new Rx to [facility] pharmacy.
--- NOTE | 2020-05-17 12:30 | PC.SOCIAL ---
This software writer spoke with Raphael Saldana [phone] on the phone. The patient stated that he was doing a lot better, just have some sneezing and weakness but getting better. I asked if he had an appointment set up soon to see his primary care physician. He stated that his PCP Dr. Monroe at the [facility] is no longer there, they were suppose to set him up with another PCP but have not yet. I asked if he would like for the hospital to help set him up with a new PCP. He stated that he would rather not, that all they would do would be to take his temperature and they would just send him back to the hospital and he would like to avoid that. I mentioned that most doctor offices offer telehealth, but he stated that when he is better he will see about getting a new PCP himself. We went over symptoms to look for such as difficulty breathing, shortness of breath, tightness of chest or pressure along with pain lasting more than 5 minutes, blue lips or face, confusion, hard to wake up and temperatures 104 degrees or over. he stated that he did not have any of these symptoms. As for medications, he stated that he did not have any questions, that he is almost finished with the medications he received at discharge from the hospital. We spoke a little about ways the covid 19 is spread and to prevent the spread. I mentioned how washing his hands for 20 seconds or longer helps prevent the spread along with keeping surfaces clean and sanitized. I mentioned being cautious of touching his face, covering his cough and sneezes. He mentioned that he has been washing his hands well and using hand clutch mechanic often. It was mentioned that if he had to go out in public to be sure to social distance, cover with a mask, to be sure to limit trips outside of the home. He knows to wash mask often and to let dry before wearing. I asked about his diet, he did say that he has got his appetite back. We spoke about foods that would help keep his immune system up such as fruits and vegetables, lean meats, low fat dairy etc. We spoke about lessening stress and keeping up with health screening and vaccinations for the flu and pneumonia. He stated that he has not yet got the flu shot but will when he recovers from the COVID 19. The last topic we spoke about was plasma donation, this is not something he is interested in at this time.
== END 2020-05-13 13:36 | disposition home or self-care (01) | DRG 177 ==
LOC: ER 13:44 → ICU 16:04
PROVIDERS: Emergency Medicine; Admitting Provider Internal Medicine; PCP Internal Medicine; Visit Provider Internal Medicine
DX: U07.1 COVID-19 (principal); J12.89 Other viral pneumonia; N13.8 Other obstructive and reflux uropathy; I25.10 Atherosclerotic heart disease of native coronary artery without angina pectoris; Z95.5 Presence of coronary angioplasty implant and graft; N40.1 Benign prostatic hyperplasia with lower urinary tract symptoms; R35.1 Nocturia; I12.9 Hypertensive chronic kidney disease with stage 1 through stage 4 chronic kidney disease, or unspecified chronic kidney disease; N18.9 Chronic kidney disease, unspecified; K21.9 Gastro-esophageal reflux disease without esophagitis; E78.5 Hyperlipidemia, unspecified; I25.2 Old myocardial infarction; Z87.891 Personal history of nicotine dependence; Z95.1 Presence of aortocoronary bypass graft; Z79.82 Long term (current) use of aspirin
CPT/HCPCS: 12345; 36415; 71045; 80053; 81001; 82728; 83605; 83880; 84145; 84484; 85025; 85378; 85384; 85610; 86140; 87040; 87426; 87804; 94760; 96372; 99284; J1100; J1650; J2405; J3535; J7030; J7040; J8540

== ENCOUNTER 2020-06-02 14:20 | Outpatient (CLI) | payer OTHER, MEDICARE, SELFPAY ==
--- NOTE | 2020-06-02 15:00 | USCV_ITS ---
Raphael Saldana Age: 79 Gender: M : 1940 Exam Date: 06/02/2020 14:23 Ordering Phys: Demetrius Moreau M.D ([email or web address]) Technologist: Sophie El Exam Location: [facility] [place] Indication: PAD Risk Factors: Former smoker Previous Vascular Surgery: Unknown RIGHT LEFT BP: 142.0 / BP: / 0 Waveform Velocity (cm/s) Velocity (cm/s) Waveform Triphasic 119.8 Iliac Prox 74.9 Triphasic Triphasic 94.4 Iliac Mid 109.8 Triphasic Triphasic 176.3 Iliac Distal 124.3 Triphasic Triphasic 120.5 STRAP CUTTER 169.1 Triphasic Triphasic 78.6 SFA Prox 80.2 Triphasic Triphasic SFA Mid Triphasic 93.3 115.7 Triphasic 183.0 SFA Dist 70.9 Biphasic Monophasic 154.8 POP 76.0 Triphasic Monophasic 67.5 WOODWIND INSTRUMENTS INSPECTOR 35.9 Triphasic DPA 60.7 Monophasic DAMIAN 1.1 FINDINGS See measurements listed above. Mild to moderate diffuse dense plaques in the iliac femoral and popliteal arteries bilaterally Normal resting DAMIAN on the left side-1.1 Supernormal resting DAMIAN on the right side-greater than 1.8 CONCLUSIONS Mild to moderate diffuse dense plaques in the iliac, femoral and popliteal arteries bilaterally. No significant arterial obstruction, based on the above findings Dr Elva Preciado MD [facility] (Electronically Signed) Final Date: 03 June 2020 09:47 S
== END 2020-06-02 14:21 | disposition home or self-care (01) ==
LOC: RAD 14:26
PROVIDERS: Visit Provider Internal Medicine
DX: I73.9 Peripheral vascular disease, unspecified (principal)
CPT/HCPCS: 93925

== ENCOUNTER → 2020-12-13 10:17 | Outpatient (BNVA) | payer OTHER, MEDICARE, SELFPAY | PROVIDERS: PCP Family Medicine; Visit Provider Internal Medicine Pulmonary Disease | DX: J44.9 Chronic obstructive pulmonary disease, unspecified (principal); J84.9 Interstitial pulmonary disease, unspecified; R06.00 Dyspnea, unspecified | CPT/HCPCS: 87635 ==

== ENCOUNTER 2020-12-19 08:54 | Outpatient (CLI) | payer OTHER, MEDICARE, SELFPAY ==
--- NOTE | 2020-12-19 10:30 | CT_ITS ---
WS: [id number] CT CHEST CT-HIGH RESOLUTION, NONCONTRAST. HISTORY: Interstitial lung disease. Technique: High-resolution chest CT is performed in inspiration, expiration, supine and prone positio jimmie. All CT scans at [facility] use at least one of these dose optimization techniques: automa sangeetha exposure control; mA and/or kV adjustment per patient size (includes targeted exams where dose is matched to clinical indication); or iterative reconstruction. DLP: 297.13 mGy.cm COMPARISON: None. Findings: Lung volumes are slightly increased. There is extensive bilateral subpleural honeycombing o lexii multiple contiguous layers. Bilateral traction bronchiectasis involving all lobes. Findings are m ore prominent in the lower lung tolliver and greatest on the RIGHT. There is also extension of the roma ycombing and traction bronchiectasis into the periphery of the upper lobes, RIGHT greater than LEFT. With expiration no definite mosaic attenuation or significant decrease in the volume of the lungs. On prone positioning there is no improvement of areas of atelectasis or honeycombing. Mild atherosclerosis of aorta. Pulmonary artery is enlarged. Hilar regions appear prominent but canno t evaluate for adenopathy without IV contrast on this higher only CT. There are calcified subcarinal lymph nodes. Heart is enlarged. Prior CABG. CT/CT chest wo con [id number] Impression: 1. Findings consistent with moderate to severe Usual Interstitial Pulmonary Fi brosis. 2. Cardiomegaly. 3. Prior CABG.
--- NOTE | 2020-12-19 11:02 | PFTS_ITS ---
Date of Study:12/19/20 Date of Dictation: 12/20/2020 MECHANICS: Postbronchodilator forced vital capacity (FVC) is reduced. Postbronchodilator forced expiratory volume in one second (FEV1) is moderately reduced 59% FEV1/FVC is normal. There is no significant response to bronchodilators.. FLOW VOLUME LOOP: Normal. LUNG VOLUMES: TLC severely reduced 40%. RV severely reduced 35% DIFFUSING CAPACITY FOR CARBON MONOXIDE: Severely reduced 39% normal is adjusted to ventilation . INTERPRETATION: The PFT is consistent with severe restrictive lung disease. There is severe gas transfer defect corrected when adjusted to ventilation suggestive of interstitial lung disease. Please correlate clinically. MTDD
--- NOTE | 2020-12-19 12:45 | USCV_ITS ---
Raphael Saldana Age: 80 Gender: M : 1940 Exam Date: 12/19/2020 10:29 Ordering Phys: Jimmy Bassett MD Technologist: Alexandra Cuevas Exam Location: [facility] [place] Indication: Diastolic heart failure BP: 128 / 70 HR: 66 Rhythm: Sinus Technical Quality: Adequate MEASUREMENTS (Male / Female) Normal Values 2D ECHO LV Diastolic Diameter PLAX 4.4 cm 4.2 - 5.9 / 3.9 - 5.3 cm LV Systolic Diameter PLAX 2.3 cm LV Chamber Size 3.5 cm IVS Diastolic Thickness 1.4 cm 0.6 - 1.0 / 0.6 - 0.9 cm IVS Systolic Thickness 1.8 cm LVPW Diastolic Thickness 1.9 cm 0.6 - 1.0 / 0.6 - 0.9 cm LVPW Systolic Thickness 1.7 cm RV Chamber Size 2.6 cm LVOT Diameter 2.0 cm LV Ejection Fraction 2D Teich 79.7 % LV Ejection Fraction MOD 2C 63.4 % LV Ejection Fraction 2C AL 66.4 % LA Diameter 4.8 cm LA Width 2.8 cm LA Height 4.5 cm RA Width 3.1 cm RA Height 3.7 cm Aorta at Sinotubular Diameter 3.9 cm M-MODE LV Diastolic Diameter MM 5.5 cm 4.2 - 5.9 / 3.9 - 5.3 cm LV Systolic Diameter MM 3.6 cm LV Ejection Fraction MM Teich 63.2 % IVS Diastolic Thickness MM 1.3 cm 0.6 - 1.0 / 0.6 - 0.9 cm IVS Systolic Thickness MM 1.3 cm LVPW Diastolic Thickness MM 1.1 cm 0.6 - 1.0 / 0.6 - 0.9 cm LVPW Systolic Thickness MM 1.9 cm RV Diastolic Diameter MM 2.5 cm Aortic Annulus Diameter 3.6 cm LA Ao Ratio MM 1.4 MV E Point Septal Separation 0.8 cm DOPPLER AV Peak Velocity 123.0 cm/s LVOT Peak Velocity 84.0 cm/s AV Area Cont Eq vti 2.6 cm squared AV Area Cont Eq pk 2.2 cm squared MV Area PHT 2.8 cm squared MV E' Velocity 50.0 cm/s Mitral E to MV E' Ratio 11.8 Mitral E to LV E' Lateral Ratio 9.1 Mitral E to LV E' Septal Ratio 17.3 TR Peak Velocity 134.3 cm/s TR Peak Gradient 7.2 mmHg TR Mean Velocity 93.4 cm/s TR Mean Gradient 4.2 mmHg TR Velocity Time Integral 30.3 cm TV Peak E Velocity 55.0 cm/s Right Atrial Pressure 3.0 mmHg Pulmonary Artery Systolic Pressu 10.2 mmHg PV Peak Velocity 78.0 cm/s RV Acceleration Time 0.1 s RV Ejection Time 0.3 s RV AcT/ET 0.3 FINDINGS Left Ventricle Normal left ventricular cavity size. Increased left ventricular wall thickness. Mild concentric left ventricular hypertrophy. Normal left ventricular systolic function. Left ventricular ejection fraction is estimated at 50-55 %. Although no diagnostic regional wall motion abnormality could be identified, this possibility cannot be completely excluded based on the study. Grade 1 diastolic dysfunction with elevated filling pressure Right Ventricle Normal right ventricular size and systolic function. Right ventricular systolic pressure 10.2 mmHg. Right Atrium Right atrium not well visualized. Left Atrium Probably mildly increased left atrial size. Mitral Valve Moderately thickened mitral valve. No mitral valve stenosis. Trace mitral valve regurgitation. Aortic Valve Mildly thickened and calcified trileaflet aortic valve. Aortic valve sclerosis without stenosis. Trace aortic valve regurgitation. Tricuspid Valve Structurally normal tricuspid valve. No tricuspid valve stenosis. Trace tricuspid valve regurgitation. Pulmonic Valve Pulmonic valve not well visualized. No pulmonary valve stenosis. Trace pulmonary valve regurgitation. Pericardium No pericardial effusion. Aorta Normal size aortic root and proximal ascending aorta. Normal- sized inferior vena cava. CONCLUSIONS 1. Normal left ventricular cavity size. Mild concentric left ventricular hypertrophy. Normal left ventricular systolic function. Left ventricular ejection fraction is estimated at 50- 55 %. Although no diagnostic regional wall motion abnormality could be identified, this possibility cannot be completely excluded based on the study. Grade 1 diastolic dysfunction with elevated filling pressure 2. When compared to previous echocardiogram dated 10/26/2018, there may not have been any change significant change. Lis Oro MD (Electronically Signed) Final Date: 21 December 2020 09:59 S
== END 2020-12-19 08:55 | disposition home or self-care (01) ==
LOC: RT 08:58
PROVIDERS: PCP Family Medicine; Visit Provider Internal Medicine Pulmonary Disease
DX: R06.00 Dyspnea, unspecified (principal); I50.30 Unspecified diastolic (congestive) heart failure; J84.9 Interstitial pulmonary disease, unspecified; I51.7 Cardiomegaly; Z95.1 Presence of aortocoronary bypass graft
CPT/HCPCS: 71250; 93306; 94060; 94618; 94726; 94729; J3490; J7611

== ENCOUNTER 2020-12-29 11:32 | Outpatient (CLI) | payer OTHER, MEDICARE, SELFPAY ==
[2020-12-29 12:36] LABS: C Reactive Protein 6.9 mg/L (0.0-4.9); Creatine Phosphokinase 59 U/L (39-308)
[2020-12-29 12:55] LABS: Erythrocyte Sedimentation Rate 12 mm/hr (0-10)
[2020-12-30 09:32] LABS: Aldolase 6.1 U/L (< OR = 8.1)
[2020-12-30 11:43] LABS: SCL 70 <1.0 NEG AI (<1.0 NEG); SS A Ro Sjogrens Antibody <1.0 NEG AI (<1.0 NEG); SS-B/LA IGG <1.0 NEG AI (<1.0 NEG)
[2020-12-30 12:17] LABS: Cyclic Citrullinated Peptide <16 UNITS
[2021-01-02 10:57] LABS: Anti-Nuclear Antibody Screen NEGATIVE (NEGATIVE)
== END 2020-12-29 11:33 | disposition home or self-care (01) ==
PROVIDERS: PCP Family Medicine; Visit Provider Internal Medicine Pulmonary Disease
DX: J84.9 Interstitial pulmonary disease, unspecified (principal)
CPT/HCPCS: 36415; 82085; 82550; 83516; 85651; 86038; 86140; 86235; 86331; 86431; 86606; 86609

== ENCOUNTER 2021-11-30 06:00 | Outpatient (RCR) | payer OTHER, SELFPAY | END 2021-12-23 23:59 | disposition home or self-care (01) | LOC: PULRHB 06:00 | PROVIDERS: PCP Family Medicine; Visit Provider Internal Medicine Pulmonary Disease | DX: J84.112 Idiopathic pulmonary fibrosis (principal) | CPT/HCPCS: G0237; G0238 ==

== ENCOUNTER 2021-12-24 | Outpatient (RCR) | payer OTHER, SELFPAY | END 2022-01-23 23:59 | disposition home or self-care (01) | LOC: PULRHB | PROVIDERS: PCP Family Medicine; Visit Provider Internal Medicine Pulmonary Disease | DX: J84.112 Idiopathic pulmonary fibrosis (principal) | CPT/HCPCS: G0237; G0238; G0239 ==

== ENCOUNTER 2022-01-24 06:00 | Outpatient (RCR) | payer OTHER, SELFPAY | END 2022-02-22 23:59 | disposition home or self-care (01) | LOC: PULRHB 06:00 | PROVIDERS: PCP Family Medicine; Visit Provider Internal Medicine Pulmonary Disease | DX: J84.112 Idiopathic pulmonary fibrosis (principal) | CPT/HCPCS: G0239 ==

== ENCOUNTER 2022-02-23 07:32 | Outpatient (RCR) | payer OTHER, SELFPAY | END 2022-03-25 23:59 | disposition home or self-care (01) | LOC: PULRHB 07:32 | PROVIDERS: PCP Family Medicine; Visit Provider Internal Medicine Pulmonary Disease | DX: J84.112 Idiopathic pulmonary fibrosis (principal) | CPT/HCPCS: 94626; G0239 ==

== ENCOUNTER → 2022-03-29 12:40 | Outpatient (BNVA) | payer OTHER, SELFPAY | PROVIDERS: PCP Family Medicine; Visit Provider Internal Medicine | DX: I25.10 Atherosclerotic heart disease of native coronary artery without angina pectoris (principal); I12.9 Hypertensive chronic kidney disease with stage 1 through stage 4 chronic kidney disease, or unspecified chronic kidney disease; N18.9 Chronic kidney disease, unspecified; Z87.891 Personal history of nicotine dependence; Z95.1 Presence of aortocoronary bypass graft; Z95.5 Presence of coronary angioplasty implant and graft; I25.2 Old myocardial infarction | CPT/HCPCS: 99213; 99214 ==

== ENCOUNTER 2022-04-06 13:51 | Outpatient (CLI) | payer OTHER, SELFPAY ==
[2022-04-06 14:36] LABS: Alanine Aminotransferase 11 U/L (0-41); Albumin Level 4.6 g/dL (3.5-5.2); Alkaline Phosphatase 81 IU/L (40-130); Aspartate Amino Transferase 22 U/L (0-40); Total Bilirubin 0.4 mg/dL (0.15-1.2); Total Protein 7.6 g/dL (6.6-8.7)
== END 2022-04-06 13:52 | disposition home or self-care (01) ==
PROVIDERS: PCP Family Medicine; Visit Provider Internal Medicine Pulmonary Disease
DX: J84.112 Idiopathic pulmonary fibrosis (principal); Z79.899 Other long term (current) drug therapy
CPT/HCPCS: 80076

== ENCOUNTER → 2022-07-25 11:44 | Outpatient (BNVA) | payer MEDICARE, SELFPAY | PROVIDERS: PCP Family Medicine; Visit Provider Family Medicine | DX: I10 Essential (primary) hypertension (principal); N18.9 Chronic kidney disease, unspecified; E78.5 Hyperlipidemia, unspecified; J44.9 Chronic obstructive pulmonary disease, unspecified; R06.02 Shortness of breath; J44.1 Chronic obstructive pulmonary disease with (acute) exacerbation; Z23 Encounter for immunization | CPT/HCPCS: 71046; 80053; 80061; 85025 ==

== ENCOUNTER → 2022-08-13 09:54 | Outpatient (BNVA) | payer OTHER, SELFPAY | PROVIDERS: PCP Family Medicine; Visit Provider Internal Medicine Pulmonary Disease | DX: J84.112 Idiopathic pulmonary fibrosis (principal); J84.9 Interstitial pulmonary disease, unspecified; Z95.1 Presence of aortocoronary bypass graft; I11.9 Hypertensive heart disease without heart failure; Z87.891 Personal history of nicotine dependence; J44.9 Chronic obstructive pulmonary disease, unspecified; R06.00 Dyspnea, unspecified | CPT/HCPCS: 99214 ==

== ENCOUNTER → 2022-12-14 09:34 | Outpatient (BNVA) | payer MEDICARE, SELFPAY | PROVIDERS: PCP Family Medicine; Visit Provider Internal Medicine Pulmonary Disease | DX: J84.112 Idiopathic pulmonary fibrosis (principal); J44.1 Chronic obstructive pulmonary disease with (acute) exacerbation; J30.9 Allergic rhinitis, unspecified; J84.9 Interstitial pulmonary disease, unspecified; Z95.1 Presence of aortocoronary bypass graft; I10 Essential (primary) hypertension; Z87.891 Personal history of nicotine dependence; I51.89 Other ill-defined heart diseases; R06.00 Dyspnea, unspecified | CPT/HCPCS: 36415; 80053; 99214 ==

== ENCOUNTER 2023-01-08 06:48 | Outpatient (CLI) | payer MEDICARE, SELFPAY ==
[2023-01-08 07:28] VITALS: PULSE 58; RESP 18; O2SAT 94
[2023-01-08] MEDS: albuterol 2.5 mg/3 mL Neb INHALATION (07:28)
[2023-01-08 07:33] VITALS: PULSE 64
== END 2023-01-08 06:49 | disposition home or self-care (01) ==
LOC: RT 06:54
PROVIDERS: PCP Family Medicine; Visit Provider Internal Medicine Pulmonary Disease
DX: J84.112 Idiopathic pulmonary fibrosis (principal)
CPT/HCPCS: 36415; 80053; 94060; 94618; 94726; 94729; 99214

== ENCOUNTER → 2023-03-28 12:47 | Outpatient (BNVA) | payer OTHER, SELFPAY | PROVIDERS: PCP Family Medicine; Visit Provider Internal Medicine | DX: I25.10 Atherosclerotic heart disease of native coronary artery without angina pectoris (principal); E78.5 Hyperlipidemia, unspecified; Z95.1 Presence of aortocoronary bypass graft; I12.9 Hypertensive chronic kidney disease with stage 1 through stage 4 chronic kidney disease, or unspecified chronic kidney disease; N18.9 Chronic kidney disease, unspecified; Z87.891 Personal history of nicotine dependence; I25.2 Old myocardial infarction | CPT/HCPCS: 99214 ==

== ENCOUNTER → 2023-04-17 10:56 | Outpatient (BNVA) | payer OTHER, SELFPAY | PROVIDERS: PCP Family Medicine; Visit Provider Internal Medicine Pulmonary Disease | DX: M62.81 Muscle weakness (generalized) (principal) | CPT/HCPCS: 80076; 99214 ==

== ENCOUNTER → 2023-10-14 12:50 | Outpatient (BNVA) | payer OTHER, SELFPAY | PROVIDERS: PCP Family Medicine; Visit Provider Internal Medicine Pulmonary Disease | DX: J84.112 Idiopathic pulmonary fibrosis (principal); J84.9 Interstitial pulmonary disease, unspecified; Z95.1 Presence of aortocoronary bypass graft; I10 Essential (primary) hypertension; Z87.891 Personal history of nicotine dependence; J44.9 Chronic obstructive pulmonary disease, unspecified; I51.89 Other ill-defined heart diseases; R06.00 Dyspnea, unspecified; Z99.81 Dependence on supplemental oxygen; J47.9 Bronchiectasis, uncomplicated; Z79.82 Long term (current) use of aspirin | CPT/HCPCS: 99214 ==

== ENCOUNTER 2024-01-17 02:20 | Emergency (ER) | payer OTHER, SELFPAY ==
[2024-01-17 02:28] VITALS: BP 147/84; PULSE 63; RESP 24; TEMP 36.4; O2SAT 95; BMI 23.6
--- NOTE | 2024-01-17 02:33 | XRR_ITS ---
PROCEDURE INFORMATION: Exam: XR Chest Exam date and time: 01/17/2024 2:49 AM Age: 83 years old Clinical indication: Dyspnea; Prior surgery; Surgery date: 6+ months; Surgery type: Cabg, stent; Additional info: Dyspnea, fibrosis TECHNIQUE: Imaging protocol: Radiologic exam of the chest. Views: 1 view. COMPARISON: CR XR chest 2V* [id number] 07/25/2022 11:49 AM FINDINGS: Lungs: Diffuse coarsening of the lung interstitium bilaterally. Pleural spaces: Unremarkable. No pleural effusion. No pneumothorax. Heart/Mediastinum: Postprocedural changes of the cardiomediastinal silhouette. Bones/joints: Status post sternotomy. Diffuse degenerative change of the visualized osseous structures. XR/XR chest 1V portable [id number] IMPRESSION: 1. Diffuse coarsening of the lung interstitium bilaterally without focal consolidation (consistent with patient history of fibrosis). Although there are no consolidations, it is difficult to exclude superimposed infection. 2. Additional findings as above.
--- NOTE | 2024-01-17 02:35 | ECG_ITS ---
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 Measurements Intervals [place] Rate: 64 P: 43 [place]: 161 QRS: 31 QRSD: 158 T: 45 QT: 490 QTc: 508 Interpretive Statements SINUS RHYTHM WITH MARKED SINUS ARRHYTHMIA POSSIBLE LEFT ATRIAL ENLARGEMENT [-0.1mV P-WAVE IN V1/V2] RIGHT BUNDLE BRANCH BLOCK [120+ ms QRS DURATION, UPRIGHT V1, 40+ ms S IN I/aVL/V4/V5/V6] Compared to ECG 10/26/2018 03:17:08 No significant changes Electronically Signed On 01-17-2024 13:08:06 CDT by Demetrius Moreau M.D. [email or web address]
[2024-01-17 02:40] VITALS: BP 147/84; PULSE 64; RESP 25; O2SAT 98
--- NOTE | 2024-01-17 02:40 | ED_ITS ---
HPI - Dizziness 2 General: Chief Complaint: Dizziness Stated Complaint: dizzy n sweaty SOB Time Seen by Provider: 01/17/24 02:25 History of Present Illness: HPI Narrative: Patient presents to the ER by private vehicle with complaints of dizziness and nausea. Patient states yesterday at about 9 AM he had an episode of dizziness with nausea that came on out of the blue lasted 15 to 20 minutes and then left for no rhyme or reason. The patient was fine throughout the rest of the day and again tonight he had a sudden onset dizziness with nausea that stayed. This time he also vomited a couple times. When he told his family members about this they wanted him to be brought to the ER to be checked out. Patient does have pulmonary fibrosis and is on 2 L of oxygen at all times. Patient says he is not any more short of breath than normal. Patient does have a history of pulmonary fibrosis, COPD, CKD, CABG, intermittent claudication, diastolic dysfunction patient denies chest pain during these episodes. Review of Systems 2 General: Reports: 10 or more systems reviewed and unremarkable except in HPI and below PFSH ED 2 PFSH: Medical History Pneumonia due to COVID-19 virus GERD (gastroesophageal reflux disease) BPH NOS w ur obs/LUTS Nocturia ASHD (arteriosclerotic heart disease) Hyperlipidemia Tobacco abuse Myocardial infarction Essential hypertension Chest pain CKD (chronic kidney disease) Surgical History S/P CABG (coronary artery bypass graft) Previous back surgery S/P angioplasty with stent Family History Father CAD (coronary artery disease) Other Myocardial infarction Social History Smoking and tobacco/nicotine status: former use of tobacco/nicotine Quit status (tobacco/nicotine): has quit using Year quit tobacco: 1979 [id number] Second hand smoke exposure: No Alcohol intake: never Substance/Drug Use: never Lives independently: Yes Household members: none Marital status: / service: Yes status details: 3 YEARS branch: [employer] Current occupational status: retired Pets and animals: Yes Do you think of yourself as: Straight/Heterosexual Current gender identity: Male Susy/Holiness: [employer] Physical Exam 2 Const: COMMON NORMALS: no acute distress, average body habitus, patient oriented x3, no limitations, healthy appearing, alert and well nourished HENMT: COMMON NORMALS: normocephalic, atraumatic, hearing grossly normal bilaterally, external ears normal, Normal external nose present, moist oral mucous membranes and oropharynx normal HEAD & SCALP: normocephalic and atraumatic NOSE: Normal external nose present EXTERNAL EAR: Yes external ears normal Eye: COMMON NORMALS: Equal, round and reactive pupils present, EOMs intact bilaterally, conjunctivae normal and no scleral icterus CONJUNCTIVA: Yes conjunctivae normal PUPIL: Yes Equal, round and reactive pupils present Neck/C-Spine: COMMON NORMALS: full ROM, no lymphadenopathy, supple, no meningeal signs, no JVD and Thyroid normal THYROID: Thyroid normal Chest: COMMONS NORMALS: normal inspection of the chest and normal palpation of entire chest wall Resp: COMMON NORMALS: normal respiratory effort, No retractions and No use of accessory muscles; negative for clear to auscultation bilaterally (Coarse decreased bilaterally) AUSCULTATION: not clear to auscultation bilaterally (Coarse decreased bilaterally) Cardio: COMMON NORMALS: no JVD, regular rate, regular rhythm, S1 normal heart sound present, S2 normal heart sound present, No gallops present (Cardio), No clicks present (Cardio), No murmurs present (Cardio) and No rub (Cardio) R ATE: regular rate RHYTHM: regular rhythm HEART SOUNDS: S1 normal heart sound present and S2 normal heart sound present GI: COMMON NORMALS: Normal to inspection, nondistended, normoactive bowel sounds present, Soft to palpation, non-tender, No hepatosplenomegaly present and no masses PALPATION: Yes Soft to palpation and Yes No hepatosplenomegaly present Extremity: NARRATIVE EXTREMITY EXAM: Negative bilateral lower extremity edema Neuro: COMMON NORMALS: patient oriented x3 SENSORIUM/ORIENTATION: Yes alert MENINGEAL SIGNS: Yes no meningeal signs Course 2 Vital Signs: Vital signs: Vital Signs Temperature 97.6 F 01/17/24 02:28 Pulse Rate 64 01/17/24 02:40 Respiratory Rate 25 H 01/17/24 02:40 Blood Pressure 147/84 01/17/24 02:40 Pulse Oximetry 98 01/17/24 02:40 Oxygen Delivery Me thod Nasal Cannula 01/17/24 02:40 Oxygen Flow Rate 2 01/17/24 02:28 MDM - Dizziness Medical Decision Making Patient had lab work done and serial troponins and EKGs, CRP, urinalysis, all of which was essentially benign. Patient was given meclizine 25 mg p.o. and 4 mg Zofran IV, patient was resting comfortably when patient was reexamined. Patient be discharged home to follow-up with his PCP Medical Records I reviewed the patient's medical records. Lab Data I reviewed the patient's lab results. 01/17/24 02:40 01/17/24 02:40 Laboratory Results WBC 5.62 10^3/uL (3.29-11.43) 01/17/24 02:40 RBC 5.39 10^6/uL (3.85-5.65) 01/17/24 02:40 Hgb 15.60 g/dL (11.27-16.99) 01/17/24 02:40 Hct 48.7 % (37-53) 01/17/24 02:40 MCV 90.4 fl (82-101) 01/17/24 02:40 MCH 28.9 pg (27-33) 01/17/24 02:40 MCHC 32.0 g/dL (30-55) 01/17/24 02:40 RDW 13.7 % (12.1-15.1) 01/17/24 02:40 Plt Count 160 10^3/cmm (157-399) 01/17/24 02:40 MPV 9.4 fL (7.4-10.4) 01/17/24 02:40 Neut % (Auto) 63.1 % 01/17/24 02:40 Lymph % (Auto) 19.4 % 01/17/24 02:40 [place] % (Auto) 9.3 % 01/17/24 02:40 Eos % (Auto) 7.1 % 01/17/24 02:40 Baso % (Auto) 0.9 % 01/17/24 02:40 Neut # (Auto) 3.55 10^3/uL (1.8-7.7) 01/17/24 02:40 Lymph # (Auto) 1.1 10^3/uL (0.8-4.8) 01/17/24 02:40 [place] # (Auto) 0.5 10^3/uL (0.2-0.9) 01/17/24 02:40 Eos # (Auto) 0.4 10^3/uL (0.0-0.8) 01/17/24 02:40 Baso # (Auto) 0.1 10^3/uL (0.0-0.1) 01/17/24 02:40 Nucleated RBC % (auto) 0 % 01/17/24 02:40 Nucleated RBCs # 0.0 /100WBC 01/17/24 02:40 Sodium 134 mmol/L (136-145) L 01/17/24 02:40 Potassium 3.7 mmol/L (3.5-5.1) 01/17/24 02:40 Chloride 97 mmol/L (98-107) L 01/17/24 02:40 Carbon Dioxide 27 mmol/L (22-29) 01/17/24 02:40 Anion Gap 13.7 (5-19) 01/17/24 02:40 BUN 14 mg/dL (8-23) 01/17/24 02:40 Creatinine 1.1 mg/dL (0.7-1.2) 01/17/24 02:40 GFR Calculation Not Reportable 01/17/24 02:40 Glucose 98 mg/dL (65-115) 01/17/24 02:40 Calculated Osmolality 278 mOsm/kg (285-295) L 01/17/24 02:40 Calcium 9.5 mg/dL (8.5-10.5) 01/17/24 02:40 Magnesium 2.1 mg/dL (1.7-2.3) 01/17/24 02:40 Total Bilirubin 0.5 mg/dL (0.15-1.2) 01/17/24 02:40 AST 18 U/L (0-40) 01/17/24 02:40 ALT 7 U/L (0-41) 01/17/24 02:40 Alkaline Phosphatase 86 U/L (40-130) 01/17/24 02:40 Troponin T Baseline 17 ng/L (0-15) H 01/17/24 02:40 Troponin T 120 Minute 16.86 ng/L (0-15) H 01/17/24 04:55 Delta Troponin T -0.14 ABS# (0-10) L 01/17/24 04:55 C-Reactive Protein 8.2 mg/L (0.0-4.9) H 01/17/24 02:40 Total Protein 8.1 g/dL (6.6-8.7) 01/17/24 02:40 Albumin 4.1 g/dL (3.5-5.2) 01/17/24 02:40 Globulin 4.0 g/dL (1.3-4.6) 01/17/24 02:40 Urine Color Yellow (Yellow) 01/17/24 03:22 Urine Appearance Clear (CLEAR) 01/17/24 03:22 Urine pH 7 (5-7) 01/17/24 03:22 Ur Specific [place] 1.010 (1.005-1.030) 01/17/24 03:22 Urine Protein Neg (Negative) 01/17/24 03:22 Urine Glucose (UA) Norm (Normal) 01/17/24 03:22 Urine Ketones Negative (Negative) 01/17/24 03:22 Urine Blood Neg (Negative) 01/17/24 03:22 Urine Nitrate Negative (Negative) 01/17/24 03:22 Urine Bilirubin Neg (Negative) 01/17/24 03:22 Urine Urobilinogen Neg mg/dL (Negative) 01/17/24 03:22 Ur Leukocyte Esterase Negative (Negative) 01/17/24 03:22 All radiology interpretation(s) finalized by discharge Discharge Plan Discharge Patient Disposition: Home Clinical Impression: Vertigo Condition: Stable Prescriptions: New meclizine 25 mg tablet 25 mg PO TID PRN (Reason: dizziness) Qty: 14 0RF No Action amlodipine 10 mg tablet 10 mg PO DAILY Qty: 90 6RF aspirin [Adult Low Dose Aspirin] 81 mg tablet,delayed release (DR/EC) 81 mg PO BID cetirizine [Zyrtec] 10 mg tablet 5 mg PO DAILY PRN tamsulosin 0.4 mg capsule 0.4 mg PO BID albuterol sulfate 90 mcg/actuation HFA aerosol inhaler 2 puff inhalation Q6H PRN (Reason: shortness of breath or wheezing) Qty: 8.5 6RF fluticasone propion-salmeterol [Wixela Inhub] 100-50 mcg/dose blister with device 1 inh inhalation BID Qty: 60 6RF Ofev 100 mg capsule 100 mg PO Q12H Qty: 180 3RF Rx Instructions: take with food (DME) Afflo Vest Twice daily See Rx Instructions .Route .MEDSUPPLY Qty: 1 0RF Rx Instructions: Use the AffloVest at 5Hz-20Hz for 30 minutes twice daily. guaifenesin [Mucus Relief ER] 600 mg tablet extended release 12hr 600 mg PO Q12H PRN metoprolol tartrate 25 mg tablet 25 mg PO DAILY fluticasone propionate [Flonase Allergy Relief] 50 mcg/actuation spray,suspension 2 spray intranasal DAILY Qty: 16 3RF Rx Instructions: administer into each nostril Discharge Orders: Discharge ED (Routine); Ordered 01/17/24 Ordered By: Gamaliel Jeff Referrals: Leia Camara MD [Primary Care Provider] - 1 week Patient Instructions: Vertigo (DC) Activity Restrictions/Additional Instructions: Your evaluation in ER including lab work did not show abnormalities too acute for your symptomatology. It is thought you have vertigo. You have been provided a prescription for meclizine that was sent to your pharmacy. Use this as directed. Please follow-up with your family practice physician within the next 7 days for further evaluation and treatment as needed. 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
[2024-01-17 02:48] LABS: Basophils # 0.1 10^3/uL (0.0-0.1); Basophils % 0.9 %; Eosinophils # 0.4 10^3/uL (0.0-0.8); Eosinophils % 7.1 %; Hematocrit 48.7 % (37-53); Lymphocytes # 1.1 10^3/uL (0.8-4.8); Lymphocytes % 19.4 %; Mean Corpuscular Hemoglobin 28.9 pg (27-33); Mean Corpuscular Volume 90.4 fl (82-101); Mean Platelet Volume 9.4 fL (7.4-10.4); Monocytes # 0.5 10^3/uL (0.2-0.9); Monocytes % 9.3 %; Neutrophils # 3.55 10^3/uL (1.8-7.7); Neutrophils % 63.1 %; Nucleated Red Blood Cells % 0 %; Platelet Count 160 10^3/cmm (157-399); Red Blood Count 5.39 10^6/uL (3.85-5.65); Red Cell Distribution Width 13.7 % (12.1-15.1); White Blood Count 5.62 10^3/uL (3.29-11.43)
[2024-01-17] MEDS: meclizine 25 mg tablet PO (02:50)
[2024-01-17] MEDS: ondansetron 2 mg/ML SDV 2 mL 4 MG IVP (02:51)
[2024-01-17 03:05] LABS: Troponin(5th) Baseline 17 ng/L (0-15)
[2024-01-17 03:14] LABS: Alanine Aminotransferase 7 U/L (0-41); Albumin Level 4.1 g/dL (3.5-5.2); Alkaline Phosphatase 86 U/L (40-130); Aspartate Amino Transferase 18 U/L (0-40); Blood Urea Nitrogen 14 mg/dL (8-23); C Reactive Protein 8.2 mg/L (0.0-4.9); Calcium 9.5 mg/dL (8.5-10.5); Carbon Dioxide 27 mmol/L (22-29); Chloride 97 mmol/L (98-107); Creatinine Clr Calc Pharmacy 49.6181; Glucose 98 mg/dL (65-115); Magnesium 2.1 mg/dL (1.7-2.3); Osmolality Calculated 278 mOsm/kg (285-295); Sodium 134 mmol/L (136-145); Total Bilirubin 0.5 mg/dL (0.15-1.2); Total Protein 8.1 g/dL (6.6-8.7)
[2024-01-17 03:15] LABS: Anion Gap 13.7 (5-19); Potassium 3.7 mmol/L (3.5-5.1)
[2024-01-17 03:26] LABS: Add Urine Microscopic? NO; Charge for UA Resulting for Rev
[2024-01-17 03:30] VITALS: BP 154/76; PULSE 56; RESP 23; O2SAT 96
[2024-01-17 03:31] LABS: Blood Urine Neg (Negative); Glucose Urine UA Norm (Normal); Ketones Urine Negative (Negative); Nitrate Urine Negative (Negative); Protein Urine Neg (Negative); Urine Appearance Clear (CLEAR); Urine Color Yellow (Yellow); pH Urine 7 (5-7)
[2024-01-17 03:32] LABS: Bilirubin Urine Neg (Negative); Leukocyte Esterase Urine Negative (Negative); Urobilinogen Urine Neg (Negative)
[2024-01-17 04:30] VITALS: BP 148/75; PULSE 57; RESP 22; O2SAT 96
[2024-01-17 05:00] VITALS: BP 105/70; PULSE 41; RESP 24; O2SAT 95
[2024-01-17 05:22] LABS: Troponin 5 2HR 16.86 ng/L (0-15)
[2024-01-17 05:23] LABS: Troponin 5 2HR Delta -0.14 ABS# (0-10)
[2024-01-17 05:30] VITALS: BP 152/84; PULSE 54; RESP 20; O2SAT 97
== END 2024-01-17 06:12 | disposition home or self-care (01) ==
PROVIDERS: Emergency Provider Emergency Medicine; PCP Family Medicine
DX: R42 Dizziness and giddiness (principal); Z79.82 Long term (current) use of aspirin; Z87.891 Personal history of nicotine dependence; E78.5 Hyperlipidemia, unspecified; I25.2 Old myocardial infarction; I12.9 Hypertensive chronic kidney disease with stage 1 through stage 4 chronic kidney disease, or unspecified chronic kidney disease; N18.9 Chronic kidney disease, unspecified; Z95.1 Presence of aortocoronary bypass graft
CPT/HCPCS: 71045; 80053; 81003; 83735; 84484; 85025; 86140; 93005; 96374; 99285; J2405; J8597

== ENCOUNTER → 2024-03-26 12:48 | Outpatient (BNVA) | payer OTHER, SELFPAY | PROVIDERS: PCP Family Medicine; Visit Provider Internal Medicine | DX: I25.10 Atherosclerotic heart disease of native coronary artery without angina pectoris (principal); E78.5 Hyperlipidemia, unspecified; Z95.1 Presence of aortocoronary bypass graft; I12.9 Hypertensive chronic kidney disease with stage 1 through stage 4 chronic kidney disease, or unspecified chronic kidney disease; N18.9 Chronic kidney disease, unspecified; Z87.891 Personal history of nicotine dependence | CPT/HCPCS: 99214 ==

== ENCOUNTER → 2024-03-30 10:11 | Outpatient (BNVA) | payer OTHER, SELFPAY | PROVIDERS: PCP Family Medicine; Visit Provider Internal Medicine Critical Care Medicine | DX: J98.4 Other disorders of lung (principal); J84.112 Idiopathic pulmonary fibrosis; J96.21 Acute and chronic respiratory failure with hypoxia; J44.9 Chronic obstructive pulmonary disease, unspecified | CPT/HCPCS: 99214; 99215 ==

== ENCOUNTER 2024-04-08 17:54 | Inpatient (IN) | payer OTHER, MEDICARE, SELFPAY ==
[2024-04-08] VITALS (9 sets, daily range): BP systolic 130–155; BP diastolic 79–87; PULSE 85–112; RESP 18–25; TEMP 36.9; O2SAT 93–99; BMI 23.0
--- NOTE | 2024-04-08 18:20 | ECG_ITS ---
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 Measurements Intervals [place] Rate: 103 P: 0 MT: 0 QRS: 72 QRSD: 140 T: -30 QT: 343 QTc: 449 Interpretive Statements ATRIAL FIBRILLATION WITH RAPID VENTRICULAR RESPONSE WITH ABERRANT CONDUCTION OR VENTRICULAR PREMATURE COMPLEXES RIGHT BUNDLE BRANCH BLOCK [120+ ms QRS DURATION, UPRIGHT V1, 40+ ms S IN I/aVL/V4/V5/V6] ST DEVIATION AND MARKED T-WAVE ABNORMALITY, CONSIDER ANTERIOR ISCHEMIA [-0.5+ mV T-WAVE IN V3/V4] Compared to ECG 01/17/2024 02:35:18 T-wave abnormality now present Possible ischemia now present Sinus rhythm no longer present Sinus arrhythmia no longer present Electronically Signed On 04-09-2024 10:59:44 CDT by Demetrius Moreau M.D. [email or web address] libby
--- NOTE | 2024-04-08 18:20 | XRR_ITS ---
PROCEDURE INFORMATION: Exam: XR Chest Exam date and time: 04/08/2024 6:25 PM Age: 83 years old Clinical indication: Shortness of breath; Prior surgery; Surgery date: 6+ months; Surgery type: Cabg/stents TECHNIQUE: Imaging protocol: Radiologic exam of the chest. Views: 1 view. COMPARISON: CR (CHEST, ) 01/17/2024 2:49 AM FINDINGS: Lungs: Chronic fibrotic changes of the bilateral lungs. Increasing hazy opacities compared to prior radiographs concerning for superimposed edema versus infectious/inflammatory etiology. Pleural spaces: No pleural effusion. No pneumothorax. Heart/Mediastinum: Cardiomegaly. Bones/joints: Median sternotomy wires. XR/XR chest 1V portable [id number] IMPRESSION: Chronic fibrotic changes of the bilateral lungs. Increasing hazy opacities compared to prior radiographs concerning for superimposed edema versus infectious/inflammatory etiology.
[2024-04-08] MEDS: ipratropium-albuterol 3 mL Neb INHALATION (18:29)
[2024-04-08 18:40] LABS: ABG PCO2 45.5 mmHg (35-45); ABG PH Result 7.46 (7.35-7.45); Alveolar-Arterial Oxygen Gradi 3.8 mmHg (5-10); Arterial Blood Gas Hematocrit 47.2 % (42-52); Base Excess ABG 7.3 mmol/L (-2.0-2.0); Blood Gas Allen Test Pos; Blood Gas Operator Identificat CAK; Blood Gas Sample Site Radial, left; Blood Gas Sample Type Arterial; Carboxyhemoglobin 1.3 %THgb (0.4-20.1); HCO3 ABG 32.4 mmol/L (22-26); Ionized Calcium Level - ABG 1.2 mmol/L (1.1-1.4); Oxygen Device NC; Oxygen Saturation ABG 94.2; PO2 ABG 64.2 mmHg (80.0-100.0); Total Hemoglobin 15.4 g/dL (14-18)
--- NOTE | 2024-04-08 19:11 | CTR_ITS ---
PROCEDURE INFORMATION: Exam: CT Chest Without Contrast; Diagnostic Exam date and time: 04/08/2024 7:38 PM Age: 83 years old Clinical indication: Shortness of breath; Prior surgery; Surgery date: 6+ months; Surgery type: Heart; Additional info: Abnormal chest xray TECHNIQUE: Imaging protocol: Diagnostic computed tomography of the chest without contrast. Radiation optimization: All CT scans at this facility use at least one of these dose optimization techniques: automated exposure control; mA and/or kV adjustment per patient size (includes targeted exams where dose is matched to clinical indication); or iterative reconstruction. COMPARISON: CT chest [facility] [id number] 12/19/2020 10:16 AM RADIATION DOSE METRICS: Total DLP (mGy-cm): 476 FINDINGS: Lungs: Basilar predominant fibrotic reticulation with honeycombing, worsened compared to prior CT chest December 19, 2020. There are scattered ground-glass opacities concerning for superimposed pulmonary edema although infectious etiology cannot be excluded. Pleural spaces: Small right-sided pleural effusion. Trace left-sided pleural effusion. Heart: Cardiomegaly. Coronary arteries: Coronary artery calcifications. Lymph nodes: Calcified mediastinal and hilar lymph nodes. Vasculature: Severe diffuse atherosclerotic calcifications. Bones/joints: Median sternotomy wires. Moderate to severe spondylosis. Soft tissues: Unremarkable. CT/CT chest [facility] [id number] IMPRESSION: 1. Fibrotic lung disease worsened compared to prior CT chest December 19, 2020. 2. Scattered ground-glass opacities concerning for superimposed pulmonary edema although infectious etiology cannot be excluded. 3. Small right and trace left pleural effusion. 4. Severe cardiomegaly with coronary artery calcifications.
[2024-04-08 19:25] LABS: Basophils % 0.2 %; Eosinophils # 0.1 10^3/uL (0.0-0.8); Eosinophils % 0.6 %; Hematocrit 50.4 % (37-53); Lymphocytes # 0.4 10^3/uL (0.8-4.8); Lymphocytes % 5.5 %; Mean Corpuscular HGB Conc 31.3 g/dL (30-55); Mean Corpuscular Hemoglobin 28.7 pg (27-33); Mean Corpuscular Volume 91.5 fl (82-101); Mean Platelet Volume 9.6 fL (7.4-10.4); Monocytes # 0.5 10^3/uL (0.2-0.9); Neutrophils # 6.98 10^3/uL (1.8-7.7); Neutrophils % 87.1 %; Nucleated Red Blood Cells % 0 %; Platelet Count 189 10^3/cmm (157-399); Red Blood Count 5.51 10^6/uL (3.85-5.65); Red Cell Distribution Width 14.4 % (12.1-15.1); White Blood Count 8.02 10^3/uL (3.29-11.43)
--- NOTE | 2024-04-08 19:31 | ED_ITS ---
HPI - SOB/Dyspnea 2 General: Chief Complaint: Shortness of Breath/Dyspnea Stated Complaint: sob Time Seen by Provider: 04/08/24 17:58 History of Present Illness: HPI Narrative: 83-year-old man with a history of pulmon jayy fibrosis and chronic hypoxemic respiratory failure on 3 L nasal cannula at all time, hypertension coronary artery disease, chronic kidney disease who presents to the emergency room with worsening shortness of breath. He has had worsening cough without production for about 3 days now. He had gone to clinic and was found to be in the 70s on his home 3 L and so was sent to the emergency room by ambulance. No chest pain. No altered mental status. No focal motor deficits. No abdominal pain. No nausea or vomiting. He says he just feels more short of breath than usual and has a bit of a worsening cough. Related Data Home Medications Medication Instructions Recorded Confirmed aspirin 81 mg tablet,delayed 81 mg PO BID 09/07/19 03/30/24 release (Adult Low Dose Aspirin) cetirizine 10 mg tablet (Zyrtec) 5 mg PO DAILY PRN 09/27/21 03/30/24 guaifenesin 600 mg tablet, 600 mg PO Q12H PRN 07/25/22 03/30/24 extended release 12 hr (Mucus Relief ER) tamsulosin 0.4 mg capsule 0.4 mg PO BID 07/25/22 03/30/24 metoprolol tartrate 25 mg tablet 25 mg PO DAILY 08/13/22 03/30/24 Previous Rx's Medication Instructions Recorded amlodipine 10 mg tablet 10 mg PO DAILY #90 tabs 03/10/20 fluticasone propionate 50 2 spray intranasal DAILY #16 grams 10/15/22 mcg/actuation nasal spray,suspension (Flonase Allergy Relief) Afflo Vest #1 ea 10/14/23 albuterol sulfate 90 mcg/actuation 2 puff inhalation Q6H PRN 10/14/23 aerosol inhaler shortness of breath or wheezing #8.5 grams fluticasone 100 mcg-salmeterol 50 1 inh inhalation BID #60 ea 10/14/23 mcg/dose blistr powdr for inhalation (Wixela Inhub) meclizine 25 mg tablet 25 mg PO TID PRN dizziness #14 tabs 01/17/24 Humidifier for oxygen concentrator #1 ea 03/30/24 Portable Concentrator Battery #1 ea 03/30/24 prednisone 10 mg tablet 10 mg PO DAILY #32 tabs 03/30/24 Allergies Allergy/AdvReac Type Severity Reaction Status Date / Time No Known Allergies Allergy Verified 04/08/24 18:04 Review of Systems 2 Narrative: Constitutional symptoms: Negative except as documented in HPI. Skin symptoms: Negative except as documented in HPI. Eye symptoms: Negative except as documented in HPI. ENMT symptoms: Negative except as documented in HPI. Respiratory symptoms: Negative except as documented in HPI. Cardiovascular symptoms: Negative except as documented in HPI. Gastrointestinal symptoms: Negative except as documented in HPI. Genitourinary symptoms: Negative except as documented in HPI. Musculoskeletal symptoms: Negative except as documented in HPI. Neurologic symptoms: Negative except as documented in HPI. Psychiatric symptoms: Negative except as documented in HPI. Endocrine symptoms: Negative except as documented in HPI. PFSH ED 2 PFSH: Medical History (Updated 04/08/24 @ 22:08 by Terrell Calderon MD) Allergic rhinitis Adverse exposure in workplace Ex-smoker for more than 1 year Pneumonia due to COVID-19 virus GERD (gastroesophageal reflux disease) BPH NOS w ur obs/LUTS Nocturia ASHD (arteriosclerotic heart disease) Hyperlipidemia Tobacco abuse Myocardial infarction Essential hypertension Chest pain CKD (chronic kidney disease) Surgical History S/P CABG (coronary artery bypass graft) Previous back surgery S/P angioplasty with stent Family History Father CAD (coronary artery disease) Other Myocardial infarction Social History Smoking and tobacco/nicotine status: former use of tobacco/nicotine Quit status (tobacco/nicotine): has quit using Year quit tobacco: 1980 [id number] Second hand smoke exposure: No Alcohol intake: never Substance/Drug Use: never Lives independently: Yes Household members: none Marital status: / service: Yes status details: 3 YEARS branch: [employer] Current occupational status: retired Pets and animals: Yes Do you think of yourself as: Straight/Heterosexual Current gender identity: Male Susy/Anabaptism: Muslim Physical Exam 2 Narrative: EXAM NARRATIVE: General: Alert, no acute distress. Skin: Warm, dry. Head: Normocephalic, atraumatic. Neck: Supple, trachea midline. Eye: Extraocular movements are intact. Ears, nose, mouth and throat: tacky oral mucosa Cardiovascular: Irregularly irregular, Normal peripheral perfusion. Respiratory: coarse, scattered wheeze, mild increased wob. tachypnea, breath sounds are equal, Symmetrical chest wall expansion. Gastrointestinal: Soft, Nontender, Non distended, Normal bowel sounds. Musculoskeletal: Normal ROM, no deformity. Neurological: Alert and oriented to person, place, time, and situation, No focal neurological deficit observed. Psychiatric: Cooperative, appropriate mood & affect. Course 2 Vital Signs: Vital signs: Vital Signs Temperature 98.4 F 04/08/24 17:55 Pulse Rate 100 04/08/24 20:56 Respiratory Rate 20 H 04/08/24 20:56 Blood Pressure 131/84 04/08/24 20:56 Pulse Oximetry 96 04/08/24 20:56 Oxygen Delivery Me thod Nasal Cannula 04/08/24 19:36 Oxygen Flow Rate 5 04/08/24 19:36 MDM - SOB/Dyspnea Medical Decision Making Differential diagnosis for patient with shortness of breath includes but is not limited to and based on the above HPI, review of systems and physical exam: Pneumonia. Bronchitis. Asthma or COPD with acute exacerbation. Acute coronary syndrome / [place]. Pulmonary embolism. Anxiety. Congestive heart failure. Viral infections including influenza and Covid-19. Atrial fibrillation. Anxiety. Pleural effusion. Pneumothorax. Workup: Lab work, chest X-ray and EKG ordered to evaluate, rule in and rule out above pathologies EKG: Time 1807. Rate 103. Atrial fibrillation with rapid rate, marked but nonspecific ST changes. Quite a bit of depression., no ectopy, right bundle branch block. This was reviewed and interpreted by myself the ER physician at 1809 Chest x-ray: There is extensive chronic pulmonary fibrosis changes, but this seems somewhat worse and could indicate underlying heart failure or infiltrates. Sternotomy wires are in place. This was reviewed and interpreted by myself the emergency room physician. I also reviewed the radiology report. Lab Review: Laboratory results were reviewed and interpreted by myself the emergency room physician. No leukocytosis. No anemia. BUN/creatinine are normal at 17 and 1.0. Patient has a new increase in his proBNP at 5000 versus last measurement was 500. Lactic acid is negative at 1.6. CT of the chest without contrast: Fibrotic lung disease which is worsened compared to December 19. Scattered groundglass opacities concerning for pulmonary edema versus infection. Small right and left trace pleural effusions. Severe cardiomegaly and coronary artery calcifications this was reviewed and interpreted by myself the emergency room physician. I also reviewed the radiology report. I reviewed the patient's medical record. Reexamination: Patient now has a little bit of tachycardia with his new onset A-fib. He is maintaining his oxygen saturations on 5 to 6 L nasal cannula. He is sitting up in the bed with some mild increased work of breathing. No altered mental status. No focal motor deficits. No known history of heart failure and no known history of atrial fibrillation. Consultation: I spoke with Dr. Calderon who is on-call for the hospitalist service and agrees to admission to observation. Assessment and plan: Acute on chronic hypoxemic respiratory failure Pulmonary fibrosis New onset atrial fibrillation New onset congestive heart failure Possible pneumonia ?Patient has received IV Solu-Medrol, 3 updrafts, IV doxycycline for possible infectious etiology, IV Lasix for possible new onset congestive heart failure with a new proBNP and a larger heart size on CT scan. -I discussed the patient with the hospitalist on-call who is admitting the patient. - Discussed findings and plan with patient. Answered any questions. - All laboratory values were reviewed and interpreted personally by myself, the ER physician - All imaging was reviewed and interpreted personally by myself, the ER physician. - Evaluation and treatment of this problem were appropriate in the emergency setting -I spent a total of >35 minutes of critical care time managing the patient, independent of any other practitioner. -The time involved in the performance of separately reportable procedures was not counted towards critical care time. Lab Data 04/08/24 19:16 04/08/24 19:16 Labs/Radiology: Radiology Impressions Chest X-Ray 04/08/24 18:20 IMPRESSION: Chronic fibrotic changes of the bilateral lungs. Increasing hazy opacities compared to prior radiographs concerning for superimposed edema versus infectious/inflammatory etiology. Chest CT 04/08/24 19:11 IMPRESSION: 1. Fibrotic lung disease worsened compared to prior CT chest December 19, 2020. 2. Scattered ground-glass opacities concerning for superimposed pulmonary edema although infectious etiology cannot be excluded. 3. Small right and trace left pleural effusion. 4. Severe cardiomegaly with coronary artery calcifications. Laboratory Results WBC 8.02 10^3/uL (3.29-11.43) 04/08/24 19:16 RBC 5.51 10^6/uL (3.85-5.65) 04/08/24 19:16 Hgb 15.80 g/dL (11.27-16.99) 04/08/24 19:16 Hct 50.4 % (37-53) 04/08/24 19:16 MCV 91.5 fl (82-101) 04/08/24 19:16 MCH 28.7 pg (27-33) 04/08/24 19:16 MCHC 31.3 g/dL (30-55) 04/08/24 19:16 RDW 14.4 % (12.1-15.1) 04/08/24 19:16 Plt Count 189 10^3/cmm (157-399) 04/08/24 19:16 MPV 9.6 fL (7.4-10.4) 04/08/24 19:16 Neut % (Auto) 87.1 % 04/08/24 19:16 Lymph % (Auto) 5.5 % 04/08/24 19:16 Green % (Auto) 6.0 % 04/08/24 19:16 Eos % (Auto) 0.6 % 04/08/24 19:16 Baso % (Auto) 0.2 % 04/08/24 19:16 Neut # (Auto) 6.98 10^3/uL (1.8-7.7) 04/08/24 19:16 Lymph # (Auto) 0.4 10^3/uL (0.8-4.8) L 04/08/24 19:16 Green # (Auto) 0.5 10^3/uL (0.2-0.9) 04/08/24 19:16 Eos # (Auto) 0.1 10^3/uL (0.0-0.8) 04/08/24 19:16 Baso # (Auto) 0.0 10^3/uL (0.0-0.1) 04/08/24 19:16 Nucleated RBC % (auto) 0 % 04/08/24 19:16 Nucleated RBCs # 0.0 /100WBC 04/08/24 19:16 Specimen Type Arterial 04/08/24 18:28 Sample Site Radial, left 04/08/24 18:28 ABG pH 7.46 (7.35-7.45) H 04/08/24 18:28 ABG pCO2 45.5 mmHg (35-45) H 04/08/24 18:28 ABG pO2 64.2 mmHg (80.0-100.0) L 04/08/24 18:28 ABG HCO3 32.4 mmol/L (22-26) H 04/08/24 18:28 ABG O2 Saturation 94.2 04/08/24 18:28 ABG Base Excess 7.3 mmol/L (-2.0-2.0) H 04/08/24 18:28 Les Test Pos 04/08/24 18:28 A-a O2 Gradient 3.8 mmHg (5-10) L 04/08/24 18:28 Hematocrit 47.2 % (42-52) 04/08/24 18:28 Hgb O2 Saturation 92.0 % (95-100) L 04/08/24 18:28 Carboxyhemoglobin 1.3 %THgb (0.4-20.1) 04/08/24 18:28 Methemoglobin 1.0 % (0.4-1.5) 04/08/24 18:28 Total Hemoglobin 15.4 g/dL (14-18) 04/08/24 18:28 Sodium 135.0 mmol/L (131-143) 04/08/24 18:28 Potassium 4.0 mmol/L (3.5-5.0) 04/08/24 18:28 Glucose 102.0 mg/dL (70-115) 04/08/24 18:28 Ionized Calcium 1.2 mmol/L (1.1-1.4) 04/08/24 18:28 O2 Delivery Device Nc 04/08/24 18:28 O2 Liters/Min 9.0 % 04/08/24 18:28 [employer] ID Cak 04/08/24 18:28 Sodium 131 mmol/L (136-145) L 04/08/24 19:16 Potassium 4.1 mmol/L (3.5-5.1) 04/08/24 19:16 Chloride 91 mmol/L (98-107) L 04/08/24 19:16 Carbon Dioxide 28 mmol/L (22-29) 04/08/24 19:16 Anion Gap 16.1 (5-19) 04/08/24 19:16 BUN 17 mg/dL (8-23) 04/08/24 19:16 Creatinine 1.0 mg/dL (0.7-1.2) 04/08/24 19:16 GFR Calculation Not Reportable 04/08/24 19:16 Glucose 102 mg/dL (65-115) 04/08/24 19:16 Calculated Osmolality 274 mOsm/kg (285-295) L 04/08/24 19:16 Lactic Acid 1.6 mmol/L (0.5-2.2) 04/08/24 19:16 Calcium 9.3 mg/dL (8.5-10.5) 04/08/24 19:16 Total Bilirubin 0.8 mg/dL (0.15-1.2) 04/08/24 19:16 AST 18 U/L (0-40) 04/08/24 19:16 ALT 17 U/L (0-41) 04/08/24 19:16 Alkaline Phosphatase 75 U/L (40-130) 04/08/24 19:16 C-Reactive Protein 61.7 mg/L (0.0-4.9) H 04/08/24 19:16 NT-Pro-B Natriuret Pep 5010 pg/mL (0-450) H 04/08/24 19:16 Total Protein 8.2 g/dL (6.6-8.7) 04/08/24 19:16 Albumin 3.9 g/dL (3.5-5.2) 04/08/24 19:16 Globulin 4.3 g/dL (1.3-4.6) 04/08/24 19:16 All radiology interpretation(s) finalized by discharge Discharge Plan Discharge Patient Disposition: Placed in Observation Admit Provider: Terrell Calderon Clinical Impression: Acute on chronic hypoxic respiratory failure, Pulmonary fibrosis, New onset of congestive heart failure, Atrial fibrillation, new onset Coding Level of Care Code ED Rn Homecare for Radha Ames
[2024-04-08 19:43] LABS: Lactic Sepsis W/Reflex 1.6 mmol/L (0.5-2.2)
[2024-04-08 19:52] LABS: Alanine Aminotransferase 17 U/L (0-41); Albumin Level 3.9 g/dL (3.5-5.2); Alkaline Phosphatase 75 U/L (40-130); Anion Gap 16.1 (5-19); Aspartate Amino Transferase 18 U/L (0-40); Blood Urea Nitrogen 17 mg/dL (8-23); C Reactive Protein 61.7 mg/L (0.0-4.9); Calcium 9.3 mg/dL (8.5-10.5); Carbon Dioxide 28 mmol/L (22-29); Chloride 91 mmol/L (98-107); Creatinine Clr Calc Pharmacy 54.0253; Globulin 4.3 g/dL (1.3-4.6); Glucose 102 mg/dL (65-115); NT Pro B Type Natriuretic Pept 5010 pg/mL (0-450); Osmolality Calculated 274 mOsm/kg (285-295); Potassium 4.1 mmol/L (3.5-5.1); Sodium 131 mmol/L (136-145); Total Bilirubin 0.8 mg/dL (0.15-1.2); Total Protein 8.2 g/dL (6.6-8.7)
--- NOTE | 2024-04-08 20:31 | P.HP_ITS ---
Providers/Chief Complaint 2 Primary Care Provider: Leia Camara MD Chief Complaint: sob History of Present Illness Raphael Saldana is a 83 year old male with a past medical history significant for chronic hypoxic respiratory failure on 3 L baseline, coronary artery disease status post CABG and PCI, benign prostatic hypertrophy, hypertension, GERD, hyperlipidemia, tobacco use disorder in remission, diastolic dysfunction, chronic restrictive lung disease, chronic idiopathic pulmonary fibrosis, UIP, and COPD who presents to the emergency department with shortness of breath and hypoxia. Patient reports worsening symptoms for the past 2 to 3 days. Endorses associated cough, describes as mostly nonproductive. Denies fevers or chills. Denies nausea or vomiting. Reports exertion worsens symptoms. Rest improves symptoms. Patient was seen in clinic earlier today where he was found to be hypoxic with SpO2 in the 70s while on his home 3 L oxygen. In the emergency department, patient was found to be hypoxic requiring 5 to 6 L of oxygen. Labs revealed hyponatremia, hypochloremia, elevated CRP to 61.7, and elevated NT proBNP to 5010. Prior proBNP was 551 in April 2020. EKG showed suspected atrial fibrillation with irregularly irregular rhythm. Patient has no recent echocardiogram, his last echocardiogram was in 2018 and showed grade II/IV diastolic dysfunction. LVEF of 58%. Patient follows with cardiology clinic, Dr. Moreau, last seen 03/26/2024. Patient also follows with pulmonary clinic, last seen 03/30/2024. Review of Systems 2 Narrative: A complete review of systems was obtained and is negative except as stated in HPI. Medications/Allergies Home Medications Medication Instructions Recorded Confirmed Last Taken Type aspirin 81 mg tablet,delayed 81 mg PO BID 09/07/19 03/30/24 05/11/20 History release (Adult Low Dose Aspirin) amlodipine 10 mg tablet 10 mg PO DAILY #90 tabs 03/10/20 03/30/24 05/11/20 Rx cetirizine 10 mg tablet (Zyrtec) 5 mg PO DAILY PRN 09/27/21 03/30/24 Unknown History guaifenesin 600 mg tablet, 600 mg PO Q12H PRN 07/25/22 03/30/24 Unknown History extended release 12 hr (Mucus Relief ER) tamsulosin 0.4 mg capsule 0.4 mg PO BID 07/25/22 03/30/24 Unknown History metoprolol tartrate 25 mg tablet 25 mg PO DAILY 08/13/22 03/30/24 Unknown History fluticasone propionate 50 2 spray intranasal DAILY #16 grams 10/15/22 03/30/24 Unknown Rx mcg/actuation nasal spray,suspension (Flonase Allergy Relief) Afflo Vest #1 ea 10/14/23 10/14/23 Unknown Rx albuterol sulfate 90 mcg/actuation 2 puff inhalation Q6H PRN 10/14/23 03/30/24 Unknown Rx aerosol inhaler shortness of breath or wheezing #8.5 grams fluticasone 100 mcg-salmeterol 50 1 inh inhalation BID #60 ea 10/14/23 03/30/24 Unknown Rx mcg/dose blistr powdr for inhalation (Wixela Inhub) meclizine 25 mg tablet 25 mg PO TID PRN dizziness #14 tabs 01/17/24 03/30/24 Unknown Rx Humidifier for oxygen concentrator #1 ea 03/30/24 03/30/24 Unknown Rx Portable Concentrator Battery #1 ea 03/30/24 03/30/24 Unknown Rx prednisone 10 mg tablet 10 mg PO DAILY #32 tabs 03/30/24 03/30/24 Unknown Rx Allergies Allergy/AdvReac Type Severity Reaction Status Date / Time No Known Allergies Allergy Verified 04/08/24 18:04 PFSH Acute 2 PFSH: Medical History (Updated 04/08/24 @ 22:08 by Terrell Calderon MD) Allergic rhinitis Adverse exposure in workplace Ex-smoker for more than 1 year Pneumonia due to COVID-19 virus GERD (gastroesophageal reflux disease) BPH NOS w ur obs/LUTS Nocturia ASHD (arteriosclerotic heart disease) Hyperlipidemia Tobacco abuse Myocardial infarction Essential hypertension Chest pain CKD (chronic kidney disease) Surgical History S/P CABG (coronary artery bypass graft) Previous back surgery S/P angioplasty with stent Family History Father CAD (coronary artery disease) Other Myocardial infarction Social History Smoking and tobacco/nicotine status: former use of tobacco/nicotine Quit status (tobacco/nicotine): has quit using Year quit tobacco: 1979 [id number] Second hand smoke exposure: No Alcohol intake: never Substance/Drug Use: never Lives independently: Yes Household members: none Marital status: / service: Yes status details: 3 YEARS branch: [employer] Current occupational status: retired Pets and animals: Yes Do you think of yourself as: Straight/Heterosexual Current gender identity: Male Susy/Yarsani: Oriental Orthodox Vitals/I&O/Wt Last Vital Signs Temp 98.4 F 04/08/24 17:55 Pulse 102 H 04/08/24 19:36 Resp 22 H 04/08/24 19:36 BP 141/84 04/08/24 19:36 Pulse Ox 95 04/08/24 19:36 O2 Del Method Nasal Cannula 04/08/24 19:36 O2 Flow Rate 5 04/08/24 19:36 Weight last 48 hrs Weight 70.76 kg Physical Exam 2 Narrative: General: Patient is awake. Appears fatigued but pleasant. Head: Normocephalic. Atraumatic. EOM intact. Very hard of hearing. Neck: No JVD. Cardiovascular: No gallops. No murmurs. No peripheral edema. Lungs: Bilateral Rales, conversational dyspnea. No rhonchi. No crackles. On supplemental support. Skin: No jaundice. No rashes. Abdomen: Normal bowel sounds, abdomen soft and nontender. Genito Urinary: Genital exam not performed since complaints not related. Rectal: Rectal exam not performed since no symptoms indicated blood loss. Extremities: No cyanosis or clubbing. Musculoskeletal: No swollen or erythematous joints. Neurological: Moves all 4 extremities. No myoclonus. Data 04/08/24 19:16 04/08/24 19:16 Micro: Microbiology 04/08/24 19:10 Blood Culture - Preliminary Blood SPECIMEN COLLECTED 04/08/24 19:16 Blood Culture - Preliminary Blood SPECIMEN COLLECTED A&P Assessment and plan (1) Acute on chronic hypoxic respiratory failure: Patient requiring 5 to 6 L of oxygen, baseline is 3 L Continuous pulse oximetry Supplemental oxygen support for SpO2 goal of 88 to 92% Encourage pulmonary toilet Systemic steroids Schedule breathing treatments (2) Acute exacerbation of idiopathic pulmonary fibrosis: Start IV steroids Status post doxycycline in ED Viral respiratory pathogen panel is pending Check procalcitonin Sputum culture if cough becomes productive Low threshold for systemic antibiotics (3) Diastolic dysfunction: Elevated proBNP noted Pulmonary vascular congestion on chest CT Start diuresis Echo ordered (4) Cardiac arrhythmia: Initial EKG with irregularly irregular rhythm suspicious for atrial fibrillation Continuous telemetry monitoring Repeat EKG in a.m. Echo ordered (5) ASHD (arteriosclerotic heart disease): CAD with history of CABG and PCI Continue home aspirin (6) BPH NOS w ur obs/LUTS: Continue Flomax (7) Essential hypertension: Continue home antihypertensives Plan DVT prophylaxis: Lovenox Attestations 2 Medical Necessity Statement*: Patient presents with shortness of breath, found to have acute on chronic hypoxic respiratory failure with imaging suspicious for possible viral illness versus pulmonary edema, cardiac arrhythmia, and weakness with expected hospitalization not to cross 2 midnights for further cardiac workup, IV steroids, breathing treatments, and supportive care. Coding Level of Care Code Acute Code for Chg Fwd Diagnoses Acute on chronic hypoxic respiratory failure J96.21 Acute exacerbation of idiopathic pulmonary fibrosis J84.112 Diastolic dysfunction I51.89 Cardiac arrhythmia I49.9 ASHD (arteriosclerotic heart disease) I25.10 BPH NOS w ur obs/LUTS N40.1 Essential hypertension I10
[2024-04-08] MEDS: FUROsemide 10 mg/mL SDV 10mL 40 MG IVP (20:35)
[2024-04-08] MEDS: doxycycline 100 MG in sodium chloride 0.9% (plus) 100 ML IV (20:35)
[2024-04-08 21:18] LABS: Bilirubin Urine Negative (Negative); Blood Urine Negative (Negative); Glucose Urine UA Negative (Normal); Ketones Urine Trace (Negative); Leukocyte Esterase Urine Negative (Negative); Nitrate Urine Negative (Negative); Protein Urine 1+ (Negative); Specific Gravity, Urine 1.015 (1.005-1.030); Urine Appearance Clear (CLEAR); Urine Color Yellow (Yellow)
[2024-04-08 21:20] LABS: Bacteria Urine None Seen /hpf; Squamous Epithelial Cell Urine 0-5 /hpf (0-5); WBC Urine 0-5 /hpf (0-5)
--- NOTE | 2024-04-08 22:22 | USCV_ITS ---
Raphael Saldana Age: 83 Gender: M : 1940 Exam Date: 04/08/2024 22:50 Ordering Phys: Terrell Calderon MD Technologist: HEIDY [place] [facility] [place]ication: SOB, elevated BNP, hx pulmonary fibrosis, chronic hypoxemia, respiratory failure, O2 dependent 3L, hx CAD s/p CABG BP: 131 / 84 HR: 81 Rhythm: Atrial fibrillation Technical Quality: Adequate MEASUREMENTS (Male / Female) Normal Values 2D ECHO LV Diastolic Diameter PLAX 4.0 cm 4.2 - 5.9 / 3.9 - 5.3 cm IVS Diastolic Thickness 1.9 cm 0.6 - 1.0 / 0.6 - 0.9 cm IVS Systolic Thickness 1.9 cm LVPW Diastolic Thickness 1.2 cm 0.6 - 1.0 / 0.6 - 0.9 cm LVPW Systolic Thickness 2.0 cm LVOT Diameter 2.0 cm LV Ejection Fraction 2D Teich 56.2 % LV Ejection Fraction MOD 4C 49.2 % LV Ejection Fraction MOD 2C 41.6 % LV Ejection Fraction 2C AL 40.9 % LA Diameter 5.0 cm LA Sys Volume AL 89.3 cm cubed LA Sys Volume Index AL 48.0 cm cubed/m squared Aorta at Sinotubular Diameter 3.3 cm IVC Diameter 2.1 cm M-MODE LA Ao Ratio MM 1.2 AV Cusp Separation MM 2.0 cm DOPPLER AV Peak Velocity 140.0 cm/s LVOT Peak Velocity 67.0 cm/s AV Area Cont Eq vti 1.5 cm squared AV Area Cont Eq pk 1.6 cm squared MV Peak Velocity 127.0 cm/s MV Area PHT 3.8 cm squared Mitral E to A Ratio 659.0 TR Peak Velocity 268.0 cm/s TR Peak Gradient 28.7 mmHg TV Peak E Velocity 33.0 cm/s Right Atrial Pressure 10.0 mmHg Pulmonary Artery Systolic Pressu 38.7 mmHg PV Peak Velocity 104.0 cm/s FINDINGS Left Ventricle Moderately increased left ventricular cavity size. Moderately decreased left ventricular systolic function. Left ventricular ejection fraction is estimated at 45 %. Global left ventricular hypokinesis. In the presence of atrial fibrillation diastolic function cannot be assessed accurately. Right Ventricle The right ventricle is normal in size and function. Right Atrium The right atrium is normal in size. Left Atrium Moderately increased left atrial size. Mitral Valve Moderately thickened mitral valve. No mitral valve stenosis. Mild mitral valve regurgitation. Aortic Valve Severe aortic valve calcification. Mild aortic valve stenosis, mean gradient 3.6 mmHg, DARIA 1.5 cm squared. Trace aortic valve regurgitation. Tricuspid Valve Thickened tricuspid valve. Mild tricuspid valve regurgitation. Pulmonic Valve Structurally normal pulmonic valve without significant stenosis. There is trace pulmonic regurgitation. Pericardium Normal pericardium without effusion. Aorta Normal ascending aorta dimension. IVC The inferior vena cava appears normal. CONCLUSIONS Moderately increased left ventricular cavity size. Moderately decreased left ventricular systolic function. Left ventricular ejection fraction is estimated at 45 %. Global left ventricular hypokinesis. In the presence of atrial fibrillation diastolic function cannot be assessed accurately. Moderately increased left atrial size. Moderately thickened mitral valve. No mitral valve stenosis. Mild mitral valve regurgitation. Severe aortic valve calcification. Mild aortic valve stenosis, mean gradient 3.6 mmHg, DARIA 1.5 cm squared. Trace aortic valve regurgitation. Thickened tricuspid valve. Mild tricuspid valve regurgitation. Bobby Ridley MD (Electronically Signed) Final Date: 09 April 2024 22:14 S
[2024-04-08 22:53] LABS: Adenovirus Not Detected (NOT DETECT); Chlamydia Pneumoniae Not Detected (NOT DETECT); Coronavirus 229E,HKU1,NL63,OC4 Not Detected (NOT DETECT); Human Metapneumovirus Not Detected (NOT DETECT); Human Rhinovirus/Enterovirus Not Detected (NOT DETECT); Influenza A Not Detected (NOT DETECT); Influenza A H1 Not Detected (NOT DETECT); Influenza A H1-2009 Not Detected (NOT DETECT); Influenza A H3 Not Detected (NOT DETECT); Influenza B Not Detected (NOT DETECT); Mycoplasma Pneumoniae Not Detected (NOT DETECT); Parainfluenza Virus Type 1 Not Detected (NOT DETECT); Parainfluenza Virus Type 2 Not Detected (NOT DETECT); Parainfluenza Virus Type 3 Not Detected (NOT DETECT); Parainfluenza Virus Type 4 Not Detected (NOT DETECT); Respiratory Syncytial Virus A Not Detected (NOT DETECT); Respiratory Syncytial Virus B Not Detected (NOT DETECT); SARS-COV-2 Not Detected (NOT DETECT)
[2024-04-08 22:55] LABS: Procalcitonin 0.23 ng/mL (0-0.5)
--- NOTE | 2024-04-08 23:34 | ECG_ITS ---
[facility] Test Date: 2024-04-08 Pat Name: Raphael Saldana Department: Room: 112 Gender: Male [employer]: : 1940 Requested By: Veronica Moore Order Number: [id number] Valera MD: Demetrius Moreau M.D. Measurements Intervals [place] Rate: 84 P: 0 WA: 0 QRS: 58 QRSD: 140 T: -45 QT: 411 QTc: 489 Interpretive Statements ATRIAL FIBRILLATION WITH ABERRANT CONDUCTION OR VENTRICULAR PREMATURE COMPLEXES RIGHT BUNDLE BRANCH BLOCK [120+ ms QRS DURATION, UPRIGHT V1, 40+ ms S IN I/aVL/V4/V5/V6] ST DEVIATION AND MODERATE T-WAVE ABNORMALITY, CONSIDER ANTEROLATERAL ISCHEMIA [-0.1+ mV T-WAVE IN V3-V6] ST DEVIATION AND MODERATE T-WAVE ABNORMALITY, CONSIDER INFERIOR ISCHEMIA [-0.1+ mV T-WAVE IN II/aVF] Compared to ECG 04/08/2024 18:07:16 No significant changes Electronically Signed On 04-09-2024 8:05:34 CDT by Demetrius Moreau M.D. [id number]
[2024-04-08 23:35] LABS: Troponin(5th) Baseline 33 ng/L (0-15)
[2024-04-08] MEDS: methylPREDNISolone sod succ 40 mg/mL INJ IVP (23:45)
[2024-04-08] MEDS: enoxaparin 40 mg/0.4 mL Syringe SUBCUT (23:45)
[2024-04-09] VITALS (17 sets, daily range): BP systolic 114–126; BP diastolic 72–84; PULSE 78–107; RESP 16–34; TEMP 36.3–36.6; O2SAT 90–98
[2024-04-09 00:01] LABS: Thyroid Stimulating Hormone 1.54 uIU/mL (0.27-4.20)
[2024-04-09] MEDS: albuterol 2.5 mg/3 mL Neb INHALATION ×5 (00:09→15:15)
[2024-04-09 01:31] LABS: Troponin 5 2HR 29.92 ng/L (0-15)
[2024-04-09 01:32] LABS: Troponin 5 2HR Delta -3.08 ABS# (0-10)
--- NOTE | 2024-04-09 03:41 | PC.NURSE ---
Patient son Hemanth Saldana came to hospital to visit, Hemanth is not on patient contact list. Patient was asked if it was ok if this nurse talked to son about patient condition and patient stated that it was ok. Hemanth Saldana [phone] states that he is DOPA for father but is not on contact list and no documentation provided.
--- NOTE | 2024-04-09 04:12 | ECG_ITS ---
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 Measurements Intervals [place] Rate: 92 P: 0 TX: 0 QRS: 24 QRSD: 148 T: 14 QT: 387 QTc: 479 Interpretive Statements ATRIAL FIBRILLATION WITH ABERRANT CONDUCTION OR VENTRICULAR PREMATURE COMPLEXES RIGHT BUNDLE BRANCH BLOCK Compared to ECG 04/08/2024 23:34:47 Intraventricular conduction delay now present Right bundle-branch block no longer present T-wave abnormality no longer present Possible ischemia no longer present Electronically Signed On 04-09-2024 11:05:29 CDT by Demetrius Moreau M.D. [id number]
[2024-04-09] MEDS: methylPREDNISolone sod succ 40 mg/mL INJ IVP ×4 (04:59→21:43)
[2024-04-09 05:33] LABS: Hematocrit 47.2 % (37-53); Lymphocytes # 0.2 10^3/uL (0.8-4.8); Mean Corpuscular HGB Conc 31.8 g/dL (30-55); Mean Corpuscular Hemoglobin 28.3 pg (27-33); Mean Corpuscular Volume 89.1 fl (82-101); Mean Platelet Volume 10.1 fL (7.4-10.4); Monocytes # 0.1 10^3/uL (0.2-0.9); Monocytes % 2.4 %; Neutrophils # 3.06 10^3/uL (1.8-7.7); Nucleated Red Blood Cells % 0 %; Platelet Count 190 10^3/cmm (157-399); Red Cell Distribution Width 14.3 % (12.1-15.1); White Blood Count 3.36 10^3/uL (3.29-11.43)
[2024-04-09 06:17] LABS: Anion Gap 18.1 (5-19); Blood Urea Nitrogen 25 mg/dL (8-23); Calcium 9.1 mg/dL (8.5-10.5); Carbon Dioxide 31 mmol/L (22-29); Chloride 91 mmol/L (98-107); Creatinine Clr Calc Pharmacy 53.9837; Glucose 187 mg/dL (65-115); Magnesium 2.2 mg/dL (1.7-2.3); NT Pro B Type Natriuretic Pept 6698 pg/mL (0-450); Osmolality Calculated 291 mOsm/kg (285-295); Potassium 4.1 mmol/L (3.5-5.1); Sodium 136 mmol/L (136-145)
[2024-04-09] MEDS: FUROsemide 10 mg/mL SDV 4mL 40 MG IVP (06:31)
--- NOTE | 2024-04-09 07:23 | PC.PHAR ---
PT IS [facility] FOR MED LIST 04/09/24 7:25AM
--- NOTE | 2024-04-09 07:37 | ECG_ITS ---
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 Measurements Intervals [place] Rate: 81 P: 0 OR: 0 QRS: 13 QRSD: 157 T: -49 QT: 421 QTc: 490 Interpretive Statements ATRIAL FIBRILLATION WITH ABERRANT CONDUCTION OR VENTRICULAR PREMATURE COMPLEXES INTRAVENTRICULAR CONDUCTION DELAY [130+ ms QRS DURATION] Compared to ECG 04/09/2024 04:22:23 No significant changes Electronically Signed On 04-09-2024 11:01:30 CDT by Demetrius Moreau M.D. [id number]
[2024-04-09] MEDS: budesonide 0.5 mg/2 mL Neb INHALATION (07:40)
[2024-04-09] MEDS: aspirin 81 mg EC Tablet PO ×2 (09:24→18:05)
[2024-04-09] MEDS: metoprolol tartrate 25 mg Tablet PO ×2 (09:24→21:44)
[2024-04-09] MEDS: amlodipine 10 mg Tablet PO (09:24)
--- NOTE | 2024-04-09 09:30 | PC.CHAP ---
Pastoral Care Encounter/Spiritual Assessment Type of Contact [] Declined college associate visit [] Patient/Family/Request visit [] Outpatient visit [] Follow-up visit [] Physician referral [] Code/Alert [x] Routine visit [] Staff referral [] Actively dying [] Patient sleeping [x] Family support [] [] Out of room [] Palliative care [] [] Receiving care in room [] Pre-surgical visit [] Trauma [] Long length of stay [] ICU visit [] Other: Relational/Emotional Strength [x] Patient feels connected with others/family/visitors/staff [] Distress [] Loneliness/isolation [] Abandonment Spirituality of Patient [x] Person of Susy [x] Attends Jewish of their Susy [x] Believes in Prayer [x] Reads Bible or Evangelical materials [] There are Spiritual issues to be addressed Avionics Manager Interventions [x] Prayer []x Active listening [] Non-anxious presence [x] Spiritual/emotional support [] Crisis/trauma care [] Spiritual counseling [] Bereavement support [] Provided bereavement packet [] Provided Bible/devotional materials [] Provided toy/stuffed animal, coloring book to patient or family member [] Provided Communion [] Anointing/[place] [] Salvation [x] Completed spiritual assessment [] Other: Impact on Illness or Injury [] Angry [] Fearful [] Anxious [] Often cries [] Exhaustion [] Unable to work [] Unable to attend judaism [] Unable to walk/stand [] Unable to read [] Unable to drive [] Unable to eat/drink [] Unable to sleep [] Unable to be with family [] Patient intubated [] Other: Summary Time spent with patient 5 min
[2024-04-09] MEDS: azithromycin 500 MG in sodium chloride 0.9% 250 ML 250 MG IV (11:12)
--- NOTE | 2024-04-09 13:34 | PM.PN ---
Subjective Subjective: He reports he is feeling slightly better. Denies chest pain pressure. States for some time his hearing aids have not been helping him quite as well. Vitals/I&O/Wt Last Vital Signs Temp 97.8 F 04/09/24 08:00 Pulse 85 04/09/24 11:35 Resp 16 04/09/24 11:25 BP 119/73 04/09/24 08:00 Pulse Ox 92 04/09/24 11:25 O2 Del Method Nasal Cannula 04/09/24 11:25 O2 Flow Rate 3 04/09/24 07:42 FiO2 3 04/09/24 11:25 04/08/24 04/09/24 04/09/24 22:59 06:59 14:59 Intake Total 100 / 100 0 / 100 610 / 610 Output Total 1200 / 1200 Balance 100 / 100 -1200 / -1100 610 / 610 Weight last 48 hrs Weight 70.624 kg Weight 70.76 kg Weight 70.76 kg Physical Exam Narrative: Mildly to moderately hard of hearing. Const: COMMON NORMALS: patient oriented x3 and alert GENERAL APPEARANCE: cooperative ORIENTATION/CONSCIOUSNESS: Yes awake HENMT: COMMON NORMALS: oropharynx normal OTHER: Nasal cannula oxygen. Neck/C-Spine: COMMON NORMALS: no JVD Resp: COMMON NORMALS: normal respiratory effort AUSCULTATION: crackles Cardio: COMMON NORMALS: no JVD, regular rhythm, S1 normal heart sound present, S2 normal heart sound present and No murmurs present (Cardio) RHYTHM: regular rhythm HEART SOUNDS: S1 normal heart sound present and S2 normal heart sound present GI: COMMON NORMALS: Normal to inspection, nondistended, normoactive bowel sounds present, Soft to palpation and non-tender PALPATION: Yes Soft to palpation Extremity: COMMON NORMALS: no joint enlargement and no pedal edema Neuro: COMMON NORMALS: patient oriented x3 and moves all extremities SENSORIUM/ORIENTATION: Yes alert Skin: COMMON NORMALS: no rashes or lesions noted GENERAL SKIN EXAM: no rashes or lesions noted Data 04/09/24 05:22 04/09/24 05:22 Micro: Microbiology 04/08/24 19:10 Blood Culture - Preliminary Blood SPECIMEN COLLECTED 04/08/24 19:16 Blood Culture - Preliminary Blood SPECIMEN COLLECTED A&P Assessment and plan (1) Acute on chronic hypoxic respiratory failure: Reviewed vitals, CBC, ABG, CMP, lactic acid, UA, respiratory viral panel, chest CT, reviewed outpatient pulmonology note, 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 Pending echocardiogram, follow-up. Worsening pulmonary fibrosis noted on CT, additionally scattered groundglass opacity pulmonary edema versus infectious etiology. He does not appear fluid overloaded on exam. Follow-up TTE. Received Lasix. Respiratory viral panel negative. 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 Condition decompensated despite being started on prednisone taper as outpatient by pulmonology. 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 He does appear to be improving, oxygen saturation 90% on 3 L. Appreciate pulmonary input with regards to progressing IPF. Given his improvement appears this may be more related to collateral comorbidities, diastolic dysfunction/congestive heart failure and possibly atrial fibrillation due to lung disease. Will need follow-up outpatient as well with regards to progressing IPF. Continue IV Solu-Medrol, monitor for risk of hyperglycemia, hypertension, encephalopathy, gastritis, risk of other complications. He is also on inhaled corticosteroid, DuoNebs. DVT prophylaxis with Lovenox. Will reassess condition. Discussed with nursing, caser up. (2) Acute exacerbation of idiopathic pulmonary fibrosis: As above. Sputum culture if cough becomes productive Low threshold for systemic antibiotics (3) Diastolic dysfunction: Possible component of CHF, does appear to show improvement with Lasix. Continue daily for now. Reassess volume status, monitor for risk of electrolyte abnormality with IV diuretic, reassess renal function, volume status. Follow-up TTE. Repeat chemistry requested. (4) Cardiac arrhythmia: Reviewed repeat EKG, noted atrial fibrillation which appears to be new for him. Intraventricular conduction delay. ST/T wave abnormalities improved, suspected related to hypoxia. He is free of chest pain. Reviewed potassium, magnesium. Continue metoprolol. Without history of atrial fibrillation, suspect triggered by progressing along disease. Would benefit from anticoagulation if possible for stroke risk mitigation. Continuous telemetry monitoring Follow-up TTE (5) ASHD (arteriosclerotic heart disease): CAD with history of CABG and PCI Continue home aspirin (6) BPH NOS w ur obs/LUTS: Continue Flomax (7) Essential hypertension: Continue home antihypertensives Plan DVT prophylaxis: Lovenox Attestations Medical Necessity Statement*: Continue hospitalization for assessment management of acute on chronic respiratory failure, diastolic CHF, progressive IPF, new atrial fibrillation. and High MDM includes amount and/or complexity of data reviewed/ordered [ previous or external records, resulted lab(s)/test(s), ordered lab(s)/test(s) and other healthcare professional discussion] and described risk of complication, morbidity or mortality of management as documented Diagnoses Acute on chronic hypoxic respiratory failure J96.21 Acute exacerbation of idiopathic pulmonary fibrosis J84.112 Diastolic dysfunction I51.89 Cardiac arrhythmia I49.9 ASHD (arteriosclerotic heart disease) I25.10 BPH NOS w ur obs/LUTS N40.1 Essential hypertension I10
[2024-04-09] MEDS: tamsulosin 0.4 mg Capsule PO (18:05)
--- NOTE | 2024-04-09 19:35 | P.CONIM_ITS ---
Providers/Reason For Consult 2 Consulting Physician/Specialty*: Jana Harrell MD Reason for Consult*: Acute on Chronic Respiratory Failure Requesting Physician: Sahil Schaefer Attending Physician: Sahil Schaefer Primary Care Provider: Leia Camara MD History of Present Illness History of Present Illness Raphael Saldana is a very pleasant 83 year old male with past medical history significant for chronic proximal respiratory failure on home oxygen 3 L nasal cannula secondary to end-stage and progressive pulmonary fibrosis UIP?IPF is future, tobacco dependence syndrome with [id number] history quitting in 1979, significant environmental exposure with inhalation of dust and chemical for more than 25 years ([employer]) post COVID-pneumonia in 2019, coronary artery disease status post CABG, hypertension, BPH admitted after patient presented via EMS due worsening hypoxemia with a saturation 70% on 4 lit of O2. Upon arrival his vital signs were consistent with BP 131/84 HR 96 , RR 20 , Temp 98.4 and his saturation was 96% on 5 L nasal cannula Initial EKG was consistent with atrial fibrillation with rapid ventricular response with absent ST changes Blood work relevant for WBC 8.02, Hb 15.8, HCT 50.3, neutrophils 87%. His chloride was 91, bicarb was 31, BUN 25 creatinine 1.0 Patient cardiac enzyme was slightly elevated and the NT proBNP 6698 ABG was consistent with pH of 7.46, pCO2 45.5, pO2 64.2, bicarb 32.4, saturation 92 this was performed in 9 L nasal cannula Chest CT is consistent with fibrotic reticulation with honeycombing that is progressive since 2020 with bilateral scattered groundglass opacity, small pleural effusion bilaterally right more than left. Viral panel NEG . Patient was initiated on supportive measures, he was placed on broad-spectrum antibiotic, systemic steroids and given a dose of Doxicycline Pulmonary consult has been requested for further evaluation. Upon my evaluation pt's son who is licensed practical nurse (PHOTOGRAPHY ASSISTANT), claims that his respiratory have been declined since last year after [place] family noticed worsening cough and quick desaturation. They were concern of him leaving by himself but pt himself declined intervention. Pt actually stayed that after a course of systemic steroids and azithromycin he felt better but for 2 days and his cough and SOB re-stared. He denies any fever, chill or Night sweats. Review of Systems 2 General: Reports: 10 or more systems reviewed and unremarkable except in HPI and below Narrative: GENERAL:Denies fevers and chills. Denies weight change. EYES: Denies diplopia or blurred vision.Denies secretions. ENT:Denies earache, sore throat ++ runny nose. No epistaxis. Denies Snoring. NECK: Denies cervicalgia. No decrease of ROM. Denies lumps. CARDIOVASCULAR: Reports no episodes of CP. intermittent LE Edema. Denies Palpitations. PND RESPIRATORY: Reports ++ SOB +++cough sputum production. Reports runny nose GASTROINTESTINAL:No GERD. No nausea, vomits or diarrhea. No constipation GENITOURINARY:No urinary incontinence. Denies Urinary Retention. Denies Hematuria MUSCULOSKELETAL: Reports + weakness. Reports no muscle pain. No recent Fx or injuries SKIN: Claims no rash, ulcerations or unusual skin lesion NEUROLOGIC:Denies headache, numbness or motor deficits. PSYCHIATRIC: Denies Depression, and anxiety. Patient denies suicidal ideation. Medications/Allergies Home Medications Medication Instructions Recorded Confirmed Last Taken Type aspirin 81 mg tablet,delayed 81 mg PO BID 09/07/19 04/08/24 04/08/24 History release (Adult Low Dose Aspirin) amlodipine 10 mg tablet 10 mg PO DAILY #90 tabs 03/10/20 04/08/24 04/08/24 Rx guaifenesin 600 mg tablet, 600 mg PO Q12H PRN Congestion 07/25/22 04/08/24 Unknown History extended release 12 hr (Mucus Relief ER) tamsulosin 0.4 mg capsule 0.4 mg PO QPM 07/25/22 04/09/24 04/08/24 History fluticasone propionate 50 2 spray intranasal DAILY #16 grams 10/15/22 04/08/24 04/08/24 Rx mcg/actuation nasal spray,suspension (Flonase Allergy Relief) Afflo Vest #1 ea 10/14/23 04/09/24 Unknown Rx albuterol sulfate 90 mcg/actuation 2 puff inhalation Q6H PRN 10/14/23 04/08/24 04/08/24 Rx aerosol inhaler shortness of breath or wheezing #8.5 grams fluticasone 100 mcg-salmeterol 50 1 inh inhalation BID #60 ea 10/14/23 04/08/24 04/08/24 Rx mcg/dose blistr powdr for inhalation (Roshan Inhub) meclizine 25 mg tablet 25 mg PO TID PRN dizziness #14 tabs 01/17/24 04/08/24 Unknown Rx Humidifier for oxygen concentrator #1 ea 03/30/24 04/08/24 Unknown Rx Portable Concentrator Battery #1 ea 03/30/24 04/09/24 Unknown Rx prednisone 10 mg tablet 10 mg PO DAILY #32 tabs 03/30/24 04/08/24 04/08/24 Rx acetaminophen 500 mg tablet 1,000 mg PO DAILY pain 04/08/24 04/08/24 04/07/24 History carbamide peroxide 6.5 % ear drops See Rx Instructions .Route .COMPLEX 04/09/24 04/09/24 Unknown History ipratropium 0.5 mg-albuterol 3 mg 3 ml inhalation QID PRN COPD 04/09/24 04/09/24 Unknown History (2.5 mg base)/3 mL nebulization soln loratadine 10 mg tablet 10 mg PO DAILY 04/09/24 04/09/24 Unknown History metoprolol succinate 50 mg 25 mg PO DAILY 04/09/24 04/09/24 Unknown History tablet,extended release 24 hr paroxetine HCl 12.5 mg See Rx Instructions .Route .COMPLEX 04/09/24 04/09/24 Unknown History tablet,extended release 24 hr zinc sulfate 50 mg zinc (220 mg) 50 mg PO DAILY 04/09/24 04/09/24 Unknown History tablet Allergies Allergy/AdvReac Type Severity Reaction Status Date / Time No Known Allergies Allergy Verified 04/08/24 18:04 Current Medications Generic Name Dose Route Start Last Admin Trade Name Freq PRN Reason Stop Dose Admin Amlodipine Besylate 10 mg 04/09/24 09:00 04/09/24 09:24 Amlodipine 10 Mg Tablet PO 10 mg DAILY ALETHEA Administration Aspirin 81 mg 04/09/24 09:00 04/09/24 18:05 Aspirin 81 Mg Ec Tablet PO 81 mg BID ALETHEA Administration Budesonide 0.5 mg 04/09/24 08:00 04/09/24 07:40 Budesonide 0.5 Mg/2 Ml Neb INHALATION 0.5 mg DAILY.RESPIRATORY ALETHEA Administration Enoxaparin Sodium 40 mg 04/08/24 22:22 04/08/24 23:45 Enoxaparin 40 Mg/0.4 Ml Syringe SUBCUT 40 mg Q24H ALETHEA Administration Furosemide 40 mg 04/09/24 06:00 04/09/24 06:31 Furosemide 10 Mg/Ml Sdv 4ml IVP 40 mg Q24H ALETHEA Administration Azithromycin 500 mg/ Sodium 250 mls @ 250 mls/hr 04/09/24 11:00 04/09/24 13:29 Chloride IV 04/14/24 10:59 Infused Q24H ALETHEA Infusion Protocol Methylprednisolone Sodium Succinate 40 mg 04/08/24 22:22 04/09/24 18:02 Methylprednisolone Sod Succ 40 Mg/Ml Inj IVP 40 mg Q6H ALETHEA Administration Metoprolol Tartrate 25 mg 04/09/24 09:00 04/09/24 09:24 Metoprolol Tartrate 25 Mg Tablet PO 25 mg BID@0900,2100 ALETHEA Administration Tamsulosin HCl 0.4 mg 04/09/24 09:00 04/09/24 18:05 Tamsulosin 0.4 Mg Capsule PO 0.4 mg BID ALETHEA Administration PFSH Acute 2 PFSH: Medical History Allergic rhinitis Adverse exposure in workplace Ex-smoker for more than 1 year Pneumonia due to COVID-19 virus GERD (gastroesophageal reflux disease) BPH NOS w ur obs/LUTS Nocturia ASHD (arteriosclerotic heart disease) Hyperlipidemia Tobacco abuse Myocardial infarction Essential hypertension Chest pain CKD (chronic kidney disease) Surgical History S/P CABG (coronary artery bypass graft) Previous back surgery S/P angioplasty with stent Family History Father CAD (coronary artery disease) Other Myocardial infarction Social History Smoking and tobacco/nicotine status: former use of tobacco/nicotine Quit status (tobacco/nicotine): has quit using Year quit tobacco: 1979 [id number] Second hand smoke exposure: No Alcohol intake: never Substance/Drug Use: never Lives independently: Yes Household members: none Marital status: / service: Yes status details: 3 YEARS branch: [employer] Current occupational status: retired Pets and animals: Yes Do you think of yourself as: Straight/Heterosexual Current gender identity: Male Susy/Lutheran: Christian Vitals/I&O/Wt Last Vital Signs Temp 97.7 F 04/09/24 12:00 Pulse 95 04/09/24 19:28 Resp 33 H 04/09/24 19:28 BP 114/73 04/09/24 19:28 Pulse Ox 91 04/09/24 19:28 O2 Del Method Nasal Cannula 04/09/24 15:15 O2 Flow Rate 4 04/09/24 15:15 FiO2 3 04/09/24 11:25 04/09/24 04/09/24 04/09/24 06:59 14:59 22:59 Intake Total 0 / 100 970 / 970 240 / 1210 Output Total 1200 / 1200 140 / 140 Balance -1200 / -1100 830 / 830 240 / 1070 Weight last 48 hrs Weight 155 lb 11.2 oz Weight 156 lb Weight 156 lb Physical Exam 2 Narrative: GENERAL APPEARANCE: elderly, frail, mild acute respiratory distress. Cooperative. NEUROLOGIC: No focal findings. Normal mental status. Normal speech. AO x3. Gait was normal. HEENT: Normocephalic and atraumatic. PERRLA. No nasal external lesion noted. MOUTH: Oral mucosa dry , cyanosis? no lesion noted. No thrush. Mallampati score III. PHARYNX: Mucosa non-inflamed, no exudate. NECK: Supple. No JVD. No adenopathy. Thyroid non-enlarged and non-tender PULMONARY: Age related Kyphosis . Corse breath sounds, diffuse bilateral crackles predominant on the lower 2/3 of lung tolliver. Decrease BS in cases. CARDIOVASCULAR: S1 and S2 seems regular and rhythmic. S/S 2/6 rub or gallop. ABDOMEN: Benign, soft, nontender. No masses. Bowel sounds were positive. RENAL: No costovertebral angle tenderness. No mass. ENDOCRINE: No evidence of thyromegaly, acromegaly or Dale features. SKIN: Good turgor, no rash, u some bruising on IV site attempted in hand NO prominent lesions. EXTREMITIES: No evidence of ulnar deviation as well as no significant distal joint deformity. No evidence of cyanosis MILD clubbing. Data 04/09/24 05:22 04/09/24 05:22 Micro: Microbiology 04/08/24 19:10 Blood Culture - Preliminary Blood NEGATIVE TO DATE 04/08/24 19:16 Blood Culture - Preliminary Blood NEGATIVE TO DATE ABG Interpretation 1: 04/08/24 18:28 ABG pH 7.46 H ABG pCO2 45.5 H ABG pO2 64.2 L ABG HCO3 32.4 H ABG O2 Saturation 94.2 ABG Base Excess 7.3 H A&P Assessment and plan (1) Acute on chronic respiratory failure with hypoxemia: (2) Acute exacerbation of idiopathic pulmonary fibrosis: (3) UIP (usual interstitial pneumonitis): (4) Diastolic heart failure: Qualifiers: Heart failure chronicity: chronic Qualified Code(s): I50.32 - Chronic diastolic (congestive) heart failure (5) Elevated troponin I level: Plan 1. ACUTE ON CHRONIC RESPIRATORY FAILURE Most likely multifactorial in etiology, however mainly related to exacerbation of UIP/IPF. Associates conditions include but not limited to patient age, severe deconditioning, diastolic heart failure, possible progressive group pulmonary hypertension. Supportive management keep saturation 88-92% He will be required to discharge in higher Lit of O2 that his baseline of 3 L - Pt and family need to be educated that he may require 4-5 lit at rest however with mobilization he will require on continuos flow 6-8 lit or higher flow. Titration will be required as his exacerbation episode improves. 2. ACUTE EXACERBATION OF IDIOPATHIC PULMONARY FIBROSIS 3. USUAL INTERSTITIAL PNEUMONITIS As personally documented he has been seen in the pulmonary office since 2020. He had an extensive workup for his underlying condition.His autoimmune workup was negative. Hypersensitivity pneumonitis panel was negative. He has a history of tobacco consumption however his PFT failed to demonstrate obstructive defect. Patient has significant environmental exposure as one of his major contributory factor. His final clinical, radiologic and PFT was consistent with UIP/IPF. Per electronic medical records his last PFT was in 2022 with stable TLC however there was a decline of the DL?VA down to 40% from 90%. Patient reported receiving Ofev from [place] and intially experienced daily loose stools and couple of episodes of diarrhea. Later he had to stop due GI sides effects including N/V. He was placed on LABA/ICS via Fluticasone/salmeterol Wixela) BID and PRN IKER via Albuterol On 03/30/24 he was seen at the pulmonary office and he was placed on azithromycin and prednisone and he was adviced to consider family assitence as he reported living on his own and experiencing episodes with hypoxemia and near syncope events. At this time I discussed in detail the nature and history of IPF/UIP along with the progression and potential treatment. I sat with patient and his son and informed patient that there is no particular medication the FDA has approved for the treatment of idiopathic pulmonary fibrosis. Medications currently being used such as prednisone, CellCept, Imuran, Mucomyst are not showing any promising results; however, some patients may benefit but in very individualized cases. Counseled that at this is a progressive disease and as per family description is declining in accelerated manners. I counseled that his O2 requirements will continue to increase and he may now 5-6 lit or higher may be the new O2 baseline requirement. Current therapy consistent with Systemic steroids and azithomycin for antiinflammatories measures. Continue to diuresis however AVOID Overdiuresis , steroids will increase his urea. ABG loks more like metabolic alkalosis component. He may be discharged home with home health V[facility] acute care rehab . I changed his albuterol to Alb+ Ipratropium / He need mucolytics nebs and mucomyst was ordered. FOr further care: * He will be need to be discharge on systemic steroids (40 mg prednisone x 7 days / 30 mg for 7 days / 20 mg for 7 days and after keep on a baseline 10 mg a day until pulmonary evaluation) * He will need to be on PCP prophylaxis double-strength oral tablet, 160 mg trimethoprim with 800 mg sulfamethoxazole MWF . * He willl need pulmonary f/u post discharge. Please contact pulmonary office for follow up post discharge ( I will be available in this institution on the week of 04/20/24- 04/24/24 ) * He will require an upgrade of his home concentrator unit allowing O2 flow up to 10 lit . * He will need upgrade of his portable unit. He has a portable unit only go up to 3 lit. His [employer] company must be contacted. Pt and pt's son agreed with code status of DNR/DNI so proper documentation should be in place upon discharge 4. DIASTOLIC HEART FAILURE 5. ELEVATED TROPONIN Most likely secondary to hypoxemia. Pt has hx of DD by echocardiogram. He has Hx of CAD and s/p CABAG. Continue with afterload reduction and diuresis as tolerated by BP and RF. At this time I would like to thank you for the consultation and for let me be part of this pt care team. My assessment and recommendations as above. Let me know if further assistance is needed otherwise I will follow pt in the out-pt setting upon discharge. Coding Level of Care Code 03877 Diagnoses Acute on chronic respiratory failure with hypoxemia J96.21 Acute exacerbation of idiopathic pulmonary fibrosis J84.112 UIP (usual interstitial pneumonitis) J84.112 Chronic diastolic heart failure I50.32 Heart failure chronicity: chronic Elevated troponin I level R79.89
[2024-04-09] MEDS: ipratropium-albuterol 3 mL Neb INHALATION (20:45)
[2024-04-09] MEDS: acetylcysteine 200 mg/mL MDV 10 mL INHALATION (20:45)
[2024-04-09] MEDS: enoxaparin 40 mg/0.4 mL Syringe SUBCUT (21:43)
[2024-04-10] VITALS (16 sets, daily range): BP systolic 110–132; BP diastolic 59–80; PULSE 76–99; RESP 16–29; TEMP 36.4–36.8; O2SAT 90–97; BMI 22.9
[2024-04-10] MEDS: methylPREDNISolone sod succ 40 mg/mL INJ IVP ×4 (04:09→21:41)
[2024-04-10 04:32] LABS: Basophils % 0.1 %; Hematocrit 44.1 % (37-53); Lymphocytes # 0.3 10^3/uL (0.8-4.8); Lymphocytes % 1.8 %; Mean Corpuscular HGB Conc 31.3 g/dL (30-55); Mean Corpuscular Hemoglobin 27.9 pg (27-33); Mean Corpuscular Volume 89.3 fl (82-101); Mean Platelet Volume 9.7 fL (7.4-10.4); Monocytes # 0.5 10^3/uL (0.2-0.9); Monocytes % 3.1 %; Neutrophils # 13.83 10^3/uL (1.8-7.7); Neutrophils % 94.7 %; Nucleated Red Blood Cells % 0 %; Platelet Count 194 10^3/cmm (157-399); Red Blood Count 4.94 10^6/uL (3.85-5.65); Red Cell Distribution Width 14.4 % (12.1-15.1); White Blood Count 14.59 10^3/uL (3.29-11.43)
[2024-04-10 04:46] LABS: Anion Gap 16.2 (5-19); Blood Urea Nitrogen 39 mg/dL (8-23); Calcium 9.1 mg/dL (8.5-10.5); Carbon Dioxide 31 mmol/L (22-29); Chloride 95 mmol/L (98-107); Glucose 148 mg/dL (65-115); Osmolality Calculated 298 mOsm/kg (285-295); Potassium 4.2 mmol/L (3.5-5.1); Sodium 138 mmol/L (136-145)
[2024-04-10] MEDS: FUROsemide 10 mg/mL SDV 4mL 40 MG IVP (06:16)
[2024-04-10] MEDS: acetylcysteine 200 mg/mL MDV 10 mL INHALATION ×2 (07:29→20:28)
[2024-04-10] MEDS: ipratropium-albuterol 3 mL Neb INHALATION ×3 (07:29→20:28)
[2024-04-10] MEDS: budesonide 0.5 mg/2 mL Neb INHALATION (07:29)
[2024-04-10] MEDS: amlodipine 10 mg Tablet PO (08:52)
[2024-04-10] MEDS: aspirin 81 mg EC Tablet PO ×2 (08:52→18:10)
[2024-04-10] MEDS: metoprolol tartrate 25 mg Tablet PO ×2 (08:55→20:07)
[2024-04-10] MEDS: azithromycin 500 MG in sodium chloride 0.9% 250 ML 250 MG IV (10:47)
[2024-04-10] MEDS: tamsulosin 0.4 mg Capsule PO (18:10)
--- NOTE | 2024-04-10 18:46 | P.PN_ITS ---
Subjective 2 Subjective: She is overall doing a little better. She has not been up yet this morning. Vitals/I&O/Wt Last Vital Signs Temp 97.6 F 04/10/24 16:44 Pulse 95 04/10/24 16:51 Resp 22 H 04/10/24 16:51 BP 114/59 04/10/24 16:51 Pulse Ox 92 04/10/24 16:51 O2 Del Method Nasal Cannula 04/10/24 16:00 O2 Flow Rate 3 04/10/24 16:00 FiO2 3 04/09/24 11:25 04/10/24 04/10/24 04/10/24 06:59 14:59 22:59 Intake Total 610 / 610 360 / 970 Output Total 600 / 1040 450 / 450 290 / 740 Balance -600 / 270 160 / 160 70 / 230 Weight last 48 hrs Weight 70.505 kg Weight 70.505 kg Weight 70.624 kg Weight 70.76 kg Physical Exam 2 Narrative: Mildly to moderately hard of hearing. Accompanied by son. Const: COMMON NORMALS: patient oriented x3 and alert GENERAL APPEARANCE: c ooperative ORIENTATION/CONSCIOUSNESS: Yes awake HENMT: COMMON NORMALS: oropharynx normal OTHER: Nasal cannula oxygen. Neck/C-Spine: COMMON NORMALS: no JVD Resp: COMMON NORMALS: normal respiratory effort AUSCULTATION: crackles Cardio: COMMON NORMALS: no JVD, regular rhythm, S1 normal heart sound present, S2 normal heart sound present and No murmurs present (Cardio) RHYTHM: regular rhythm HEART SOUNDS: S1 normal heart sound present and S2 normal heart sound present GI: COMMON NORMALS: Normal to inspection, nondistended, normoactive bowel sounds present, Soft to palpation and non-tender PALPATION: Yes Soft to palpation Extremity: COMMON NORMALS: no joint enlargement and no pedal edema Neuro: COMMON NORMALS: patient oriented x3 and moves all extremities S ENSORIUM/ORIENTATION: Yes alert Skin: COMMON NORMALS: no rashes or lesions noted GENERAL SKIN EXAM: no rashes or lesions noted Data 04/10/24 04:07 04/10/24 04:07 Micro: Microbiology 04/08/24 19:10 Blood Culture - Preliminary Blood NEGATIVE TO DATE 04/08/24 19:16 Blood Culture - Preliminary Blood NEGATIVE TO DATE A&P Assessment and plan (1) Acute on chronic hypoxic respiratory failure: Without further improvement. At least at rest he is doing about the same on 3 L nasal cannula satting in the low 90s, however, he desaturates very quickly with exertion. Discussed with him and his son we will try and see how well he does with mobilization today. Discussed with nursing staff, mental health case manager. IV steroids today, monitor for risk of hypertension, hyperglycemia, encephalopathy, gastritis with IV Solu-Medrol. Reviewed vitals, CBC, BMP, blood culture. Reviewed pulmonology note. Per discussion with mental health case manager home O2 evaluation is requested to allow for upgrade to home oxygen. Noted worsening renal function today, creatinine up to 1.3, BUN 39. Some leukocytosis noted today likely secondary to corticosteroid. However, possible overdiuresis. Hold Lasix. Will give a dose of albumin. Reassess renal function. Condition decompensated despite being started on prednisone taper as outpatient by pulmonology. In addition to corticosteroid as per discussion with his mix maker add azithromycin. He does appear to be improving, oxygen saturation 90% on 3 L. Appreciate pulmonary input with regards to progressing IPF. Will need follow-up outpatient as well with regards to progressing IPF. Also on inhaled corticosteroid, DuoNebs. DVT prophylaxis with Lovenox. (2) Acute exacerbation of idiopathic pulmonary fibrosis: As above. Sputum culture if cough becomes productive Low threshold for systemic antibiotics (3) Diastolic dysfunction: TTE reviewed, is noted to have new LV dysfunction with ejection fraction down to 45%, global left ventricular hypokinesis. He has been free of chest pain. Troponin with mild elevation. Currently with DAPHNE. Hold Lasix. Today appears more in the dry side, some overdiuresis possibly with BUN of 39, creatinine 1.3. Hold off IV fluid with respiratory failure, diastolic dysfunction, will give a dose of albumin 25%, 12.5 g x 1. Possible component of CHF. Reviewed TTE, ejection fraction about 45%, global left ventricular hypokinesis. In presence of atrial fibrillation. Mild aortic valve stenosis, severe calcification. Trace TVR. Mild MVR. Moderately increased left atrial size. Repeat chemistry requested. (4) Cardiac arrhythmia: Continue metoprolol. Reviewed repeat EKG, noted atrial fibrillation which appears to be new for him. Intraventricular conduction delay. ST/T wave abnormalities improved, suspected related to hypoxia. He is free of chest pain. Reviewed potassium, magnesium. Continue metoprolol. Without history of atrial fibrillation, suspect triggered by progressing along disease. Would benefit from anticoagulation if possible for stroke risk mitigation. Continuous telemetry monitoring Follow-up TTE (5) ASHD (arteriosclerotic heart disease): CAD with history of CABG and PCI Continue home aspirin (6) BPH NOS w ur obs/LUTS: Continue Flomax (7) Essential hypertension: Continue home antihypertensives Plan DVT prophylaxis: Lovenox Attestations 2 Medical Necessity Statement*: Continue hospitalization for assessment management of acute on chronic respiratory failure, progressive IPF, CHF with DAPHNE. Diagnoses Acute on chronic hypoxic respiratory failure J96.21 Acute exacerbation of idiopathic pulmonary fibrosis J84.112 Diastolic dysfunction I51.89 Cardiac arrhythmia I49.9 ASHD (arteriosclerotic heart disease) I25.10 BPH NOS w ur obs/LUTS N40.1 Essential hypertension I10
[2024-04-10] MEDS: polyethylene glycol 3350 Pkt 17 gm PO (21:40)
[2024-04-10] MEDS: enoxaparin 40 mg/0.4 mL Syringe SUBCUT (21:44)
[2024-04-11] VITALS (16 sets, daily range): BP systolic 99–128; BP diastolic 61–79; PULSE 74–95; RESP 12–23; TEMP 36.3–36.9; O2SAT 90–97
[2024-04-11 04:01] LABS: Basophils % 0.1 %; Hematocrit 41.9 % (37-53); Lymphocytes # 0.2 10^3/uL (0.8-4.8); Lymphocytes % 1.5 %; Mean Corpuscular HGB Conc 31.3 g/dL (30-55); Mean Corpuscular Hemoglobin 28.5 pg (27-33); Mean Corpuscular Volume 91.3 fl (82-101); Mean Platelet Volume 9.8 fL (7.4-10.4); Monocytes # 0.4 10^3/uL (0.2-0.9); Monocytes % 2.6 %; Neutrophils # 14.15 10^3/uL (1.8-7.7); Neutrophils % 95.2 %; Nucleated Red Blood Cells % 0 %; Platelet Count 183 10^3/cmm (157-399); Red Blood Count 4.59 10^6/uL (3.85-5.65); Red Cell Distribution Width 14.4 % (12.1-15.1); White Blood Count 14.87 10^3/uL (3.29-11.43)
[2024-04-11 04:23] LABS: Anion Gap 15.3 (5-19); Blood Urea Nitrogen 42 mg/dL (8-23); Calcium 8.9 mg/dL (8.5-10.5); Carbon Dioxide 30 mmol/L (22-29); Chloride 97 mmol/L (98-107); Creatinine Clr Calc Pharmacy 49.0431; Glucose 125 mg/dL (65-115); Osmolality Calculated 298 mOsm/kg (285-295); Potassium 4.3 mmol/L (3.5-5.1); Sodium 138 mmol/L (136-145)
[2024-04-11] MEDS: methylPREDNISolone sod succ 40 mg/mL INJ IVP ×4 (04:28→22:22)
[2024-04-11] MEDS: ipratropium-albuterol 3 mL Neb INHALATION ×3 (07:33→19:37)
[2024-04-11] MEDS: budesonide 0.5 mg/2 mL Neb INHALATION (07:33)
[2024-04-11] MEDS: aspirin 81 mg EC Tablet PO ×2 (08:44→17:24)
[2024-04-11] MEDS: guaiFENesin 600 mg Tablet PO (08:44)
[2024-04-11] MEDS: amlodipine 10 mg Tablet PO (08:45)
[2024-04-11] MEDS: metoprolol tartrate 25 mg Tablet PO ×2 (08:45→20:07)
[2024-04-11] MEDS: azithromycin 500 MG in sodium chloride 0.9% 250 ML 250 MG IV (11:02)
--- NOTE | 2024-04-11 12:10 | PC.NURSE ---
pt got out of bed to use bedside commode Pt desaturate down to 83% on 3 L, He is short of breath, with lips cyanotic and pale colored face. Pt oxygen liter increased to 5 to 6 L per doctor's instruction. RT home o2 eval to increase up to 6 L. Pt SpO2 then increased to 90-95%. Pt color came back pinkish.
--- NOTE | 2024-04-11 14:27 | PC.NURSE ---
In-pt hand-off report to med surg Spoke to Pauly RN approximately at 1340 pm about the pt's hospitalization course, our treatments and plan of care, current physical assessment, oxygen requirement and discharge disposition. Ushered pt from room 112-2 to room 252 bed 2 via wheelchair with all of the pt's belongings carried by the family at bedside. Pt's wallet is with his son Gurvinder. Notified hospitalist and sent a message to case mgt in regards to Hospice referral per patient and family decision. pt's chart provided to medr .
[2024-04-11] MEDS: tamsulosin 0.4 mg Capsule PO (17:24)
--- NOTE | 2024-04-11 19:19 | P.PN_ITS ---
Subjective 2 Subjective: He desaturated down to 83% try to get up yesterday. Denies chest pain or pressure. Vitals/I&O/Wt Last Vital Signs Temp 98.0 F 04/11/24 15:56 Pulse 88 04/11/24 15:56 Resp 18 04/11/24 15:56 BP 120/68 04/11/24 15:56 Pulse Ox 93 04/11/24 15:56 O2 Del Method Nasal Cannula 04/11/24 15:56 O2 Flow Rate 3 04/11/24 13:45 FiO2 3 04/09/24 11:25 04/11/24 04/11/24 04/11/24 06:59 14:59 22:59 Intake Total 926 / 926 480 / 1406 Output Total 450 / 1340 540 / 540 400 / 940 Balance -450 / 30 386 / 386 80 / 466 Weight last 48 hrs Weight 72.257 kg Weight 70.505 kg Weight 70.505 kg Physical Exam 2 Narrative: Mildly to moderately hard of hearing. Accompanied by his family including 2 sons. Const: COMMON NORMALS: patient oriented x3 and alert GENERAL APPEARANCE: c ooperative ORIENTATION/CONSCIOUSNESS: Yes awake HENMT: COMMON NORMALS: oropharynx normal OTHER: Nasal cannula oxygen. Neck/C-Spine: COMMON NORMALS: no JVD Resp: COMMON NORMALS: normal respiratory effort and clear to auscultation bilaterally AUSCULTATION: clear to auscultation bilaterally and crackles Cardio: COMMON NORMALS: no JVD, regular rhythm, S1 normal heart sound present, S2 normal heart sound present and No murmurs present (Cardio) RHYTHM: regular rhythm HEART SOUNDS: S1 normal heart sound present and S2 normal heart sound present GI: COMMON NORMALS: Normal to inspection, nondistended, normoactive bowel sounds present, Soft to palpation and non-tender PALPATION: Yes Soft to palpation Extremity: COMMON NORMALS: no joint enlargement and no pedal edema Neuro: COMMON NORMALS: patient oriented x3 and moves all extremities S ENSORIUM/ORIENTATION: Yes alert Skin: COMMON NORMALS: no rashes or lesions noted GENERAL SKIN EXAM: no rashes or lesions noted Data 04/11/24 03:44 04/11/24 03:44 A&P Assessment and plan (1) Acute on chronic hypoxic respiratory failure: Unimproved respiratory failure, desaturated down to 83% on exertion. Discussed with nursing staff, increased oxygen flow to 5-6 L with exertion. Continue attempts at mobilization, reassess. We reached out to oxygen company, today they are closed, unable to arrange for higher flow capacity home concentrator and portable oxygen. Will have to revisit again on Saturday. Additionally patient and family have been discussing and considering hospice. Per additional discussion CODE STATUS changed to AND. Discussed with nursing staff. At current time continue treatment with IV steroid, continue oxygen support. Continue azithromycin for anti-inflammatory component. Monitor for risk of hyperglycemia, encephalopathy, hypertension, gastritis with IV steroids. Reviewed vitals, CBC, BMP, blood culture. Blood cultures so far negative. Renal function with noted some improvement, BUN 42, creatinine down to 1.1. Hold off diuretics. Noted worsening ejection fraction on echocardiogram, discussed with him and family. EF down to 45%. Condition decompensated despite being started on prednisone taper as outpatient by pulmonology. In addition to corticosteroid as per discussion with his boiler testing technician add azithromycin. He does appear to be improving, oxygen saturation 90% on 3 L. Appreciate pulmonary input with regards to progressing IPF. Will need follow-up outpatient as well with regards to progressing IPF. Also on inhaled corticosteroid, DuoNebs. DVT prophylaxis with Lovenox. (2) Acute exacerbation of idiopathic pulmonary fibrosis: As above. Sputum culture if cough becomes productive Low threshold for systemic antibiotics (3) Diastolic dysfunction: Discussed with him possibility of tachycardia induced cardiomyopathy with global LV dysfunction noted on TTE, he does note that his heart rates have been around 100s on pulse oximetry at home, atrial fibrillation with RVR likely at home triggered by progression of pulmonary disease. Here he is doing little bit better, heart rates in the 70s. Continue metoprolol. Discussed additional possibility of coronary disease, ischemic cardiomyopathy, discussed mild ovation of troponin with flat trend, he has remained chest pain-free. Some EKG changes on presentation noted reversible with improvement in oxygenation. Discussed consideration of follow-up with stress testing, follow-up with cardiology. Depending on further goals of care. Reviewed TTE, ejection fraction about 45%, global left ventricular hypokinesis. In presence of atrial fibrillation. Mild aortic valve stenosis, severe calcification. Trace TVR. Mild MVR. Moderately increased left atrial size. Repeat chemistry requested. (4) Cardiac arrhythmia: Continue metoprolol. Discussed risk of stroke, initiation of anticoagulation, risk of anticoagulation. He is agreeable to start Eliquis. Requested. 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 Without history of atrial fibrillation, suspect triggered by progressing along disease. Would benefit from anticoagulation if possible for stroke risk mitigation. Continuous telemetry monitoring Discussed TTE (5) ASHD (arteriosclerotic heart disease): CAD with history of CABG and PCI Continue home aspirin (6) BPH NOS w ur obs/LUTS: Continue Flomax (7) Essential hypertension: Continue home antihypertensives Plan He additionally was reporting some nocturia, discussed with him, has had some urinary frequency getting up to 3 times a night. Continue tamsulosin. Discussed consideration of starting a second medication, follow-up with urology. DVT prophylaxis: Lovenox Attestations 2 Medical Necessity Statement*: Continue hospitalization for assessment management of acute on chronic respiratory failure, progressive IPF, CHF with DAPHNE. , High MDM includes number and complexity of problems actively addressed during encounter and described risk of complication, morbidity or mortality of management as documented and High Time for a total of 60 minutes, includes reviewing past or interval history, examining/interviewing patient, placing orders, counseling patient/family/other support, discussing plan of care with staff, documenting encounter and coordinating care Diagnoses Acute on chronic hypoxic respiratory failure J96.21 Acute exacerbation of idiopathic pulmonary fibrosis J84.112 Diastolic dysfunction I51.89 Cardiac arrhythmia I49.9 ASHD (arteriosclerotic heart disease) I25.10 BPH NOS w ur obs/LUTS N40.1 Essential hypertension I10
[2024-04-11] MEDS: apixaban 5 mg Tablet PO (20:07)
[2024-04-12] VITALS (11 sets, daily range): BP systolic 121–139; BP diastolic 55–81; PULSE 75–106; RESP 18–24; TEMP 36.4–36.7; O2SAT 90–93
[2024-04-12 04:01] LABS: Basophils % 0.1 %; Hematocrit 42.1 % (37-53); Lymphocytes # 0.2 10^3/uL (0.8-4.8); Lymphocytes % 1.8 %; Mean Corpuscular HGB Conc 30.6 g/dL (30-55); Mean Corpuscular Volume 91.3 fl (82-101); Mean Platelet Volume 9.8 fL (7.4-10.4); Monocytes # 0.4 10^3/uL (0.2-0.9); Monocytes % 3.4 %; Neutrophils % 94.2 %; Nucleated Red Blood Cells % 0 %; Platelet Count 170 10^3/cmm (157-399); Red Blood Count 4.61 10^6/uL (3.85-5.65); Red Cell Distribution Width 14.3 % (12.1-15.1); White Blood Count 10.61 10^3/uL (3.29-11.43)
[2024-04-12] MEDS: methylPREDNISolone sod succ 40 mg/mL INJ IVP ×4 (04:18→22:03)
[2024-04-12 04:30] LABS: Anion Gap 10.4 (5-19); Blood Urea Nitrogen 37 mg/dL (8-23); Calcium 8.9 mg/dL (8.5-10.5); Carbon Dioxide 34 mmol/L (22-29); Chloride 98 mmol/L (98-107); Creatinine Clr Calc Pharmacy 55.0373; Glucose 126 mg/dL (65-115); Osmolality Calculated 296 mOsm/kg (285-295); Potassium 4.4 mmol/L (3.5-5.1); Sodium 138 mmol/L (136-145)
[2024-04-12] MEDS: budesonide 0.5 mg/2 mL Neb INHALATION (08:33)
[2024-04-12] MEDS: ipratropium-albuterol 3 mL Neb INHALATION ×3 (08:33→20:06)
[2024-04-12] MEDS: apixaban 5 mg Tablet PO ×2 (09:53→20:26)
[2024-04-12] MEDS: amlodipine 10 mg Tablet PO (09:53)
[2024-04-12] MEDS: tamsulosin 0.4 mg Capsule PO ×2 (09:53→17:15)
[2024-04-12] MEDS: aspirin 81 mg EC Tablet PO ×2 (09:53→17:15)
[2024-04-12] MEDS: metoprolol tartrate 25 mg Tablet PO ×2 (10:17→20:26)
[2024-04-12] MEDS: azithromycin 500 MG in sodium chloride 0.9% 250 ML 250 MG IV (11:40)
--- NOTE | 2024-04-12 13:13 | P.PN_ITS ---
Subjective 2 Subjective: He is feeling about the same. Without worsening at rest. No chest pain. Has not yet gotten up today. Vitals/I&O/Wt Last Vital Signs Temp 97.7 F 04/12/24 07:13 Pulse 83 04/12/24 08:00 Resp 18 04/12/24 08:00 BP 129/74 04/12/24 07:13 Pulse Ox 92 04/12/24 08:00 O2 Del Method Nasal Cannula 04/12/24 08:00 O2 Flow Rate 3 04/12/24 08:00 FiO2 3 04/09/24 11:25 04/11/24 04/12/24 04/12/24 22:59 06:59 14:59 Intake Total 480 / 1406 360 / 360 Output Total 550 / 1090 475 / 1565 300 / 300 Balance -70 / 316 -475 / -159 60 / 60 Weight last 48 hrs Weight 74.072 kg Weight 72.257 kg Physical Exam 2 Narrative: Mildly to moderately hard of hearing. Accompanied by his son and [id number]. Const: COMMON NORMALS: patient oriented x3 and alert GENERAL APPEARANCE: c ooperative ORIENTATION/CONSCIOUSNESS: Yes awake HENMT: COMMON NORMALS: oropharynx normal OTHER: Nasal cannula oxygen. Neck/C-Spine: COMMON NORMALS: no JVD Resp: COMMON NORMALS: normal respiratory effort AUSCULTATION: crackles (Throughout: Worse on the left) Cardio: COMMON NORMALS: no JVD, regular rhythm, S1 normal heart sound present, S2 normal heart sound present and No murmurs present (Cardio) RHYTHM: regular rhythm HEART SOUNDS: S1 normal heart sound present and S2 normal heart sound present GI: COMMON NORMALS: Normal to inspection, nondistended, normoactive bowel sounds present, Soft to palpation and non-tender PALPATION: Yes Soft to palpation Extremity: COMMON NORMALS: no joint enlargement and no pedal edema Neuro: COMMON NORMALS: patient oriented x3 and moves all extremities S ENSORIUM/ORIENTATION: Yes alert Skin: COMMON NORMALS: no rashes or lesions noted GENERAL SKIN EXAM: no rashes or lesions noted Data 04/12/24 03:47 04/12/24 03:47 A&P Assessment and plan (1) Acute on chronic hypoxic respiratory failure: Reviewed vitals, CBC, BMP. Discussed with nursing staff. Attempt ambulation again today, turn up oxygen to 5 to 6 L, reassess oxygenation. Awaiting day to be able to resume arrangement for device capable of 10 L flow at home as well as upgrade to his portable oxygen. In the meantime continue IV Solu-Medrol, azithromycin. Reviewed POC glucose. Continue to monitor for risk of hyperglycemia, encephalopathy, hypertension, gastritis with IV steroids. Additionally with new decrease in EF, new A-fib, mild troponin abnormality, some transient EKG changes on presentation, possible pulmonary edema, discussed with sausage canner, appreciate consultation with regards to assessment for possible ischemic heart disease as contribution to the above. Renal function with noted some improvement, BUN 42, creatinine down to 1.1. Hold off diuretics. Noted worsening ejection fraction on echocardiogram, discussed with him and family. EF down to 45%. Condition decompensated despite being started on prednisone taper as outpatient by pulmonology. In addition to corticosteroid as per discussion with his construction engineering manager add azithromycin. He does appear to be improving, oxygen saturation 90% on 3 L. Appreciate pulmonary input with regards to progressing IPF. Will need follow-up outpatient as well with regards to progressing IPF. Also on inhaled corticosteroid, DuoNebs. DVT prophylaxis with Lovenox. (2) Acute exacerbation of idiopathic pulmonary fibrosis: As above. Sputum culture if cough becomes productive Low threshold for systemic antibiotics (3) Diastolic dysfunction: With new systolic dysfunction, new atrial fibrillation. Discussed with cardiology, appreciate consultation regarding consideration of ischemic heart disease contributing to the new drop in ejection fraction, new A-fib. Discussed with him possibility of tachycardia induced cardiomyopathy with global LV dysfunction noted on TTE, he does note that his heart rates have been around 100s on pulse oximetry at home, atrial fibrillation with RVR likely at home triggered by progression of pulmonary disease. Here he is doing little bit better, heart rates in the 70s. Continue metoprolol. Discussed additional possibility of coronary disease, ischemic cardiomyopathy, discussed mild ovation of troponin with flat trend, he has remained chest pain-free. Some EKG changes on presentation noted reversible with improvement in oxygenation. Discussed consideration of follow-up with stress testing, follow-up with cardiology. Depending on further goals of care. Reviewed TTE, ejection fraction about 45%, global left ventricular hypokinesis. In presence of atrial fibrillation. Mild aortic valve stenosis, severe calcification. Trace TVR. Mild MVR. Moderately increased left atrial size. Repeat chemistry requested. (4) Cardiac arrhythmia: Continue metoprolol. Discussed risk of stroke, initiation of anticoagulation, risk of anticoagulation. He is agreeable to start Eliquis. Requested. 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 Without history of atrial fibrillation, suspect triggered by progressing along disease. Would benefit from anticoagulation if possible for stroke risk mitigation. Continuous telemetry monitoring Discussed TTE (5) ASHD (arteriosclerotic heart disease): CAD with history of CABG and PCI Continue home aspirin (6) BPH NOS w ur obs/LUTS: Continue Flomax (7) Essential hypertension: Continue home antihypertensives Plan He additionally was reporting some nocturia, discussed with him, has had some urinary frequency getting up to 3 times a night. Continue tamsulosin. Discussed consideration of starting a second medication, follow-up with urology. DVT prophylaxis: Lovenox Attestations 2 Medical Necessity Statement*: Continue hospitalization for assessment management of acute on chronic respiratory failure, progressive IPF, new cardiomyopathy, new A-fib. and High MDM includes amount and/or complexity of data reviewed/ordered [ resulted lab(s)/test(s), ordered lab(s)/test(s) and other healthcare professional discussion] and described risk of complication, morbidity or mortality of management as documented Diagnoses Acute on chronic hypoxic respiratory failure J96.21 Acute exacerbation of idiopathic pulmonary fibrosis J84.112 Diastolic dysfunction I51.89 Cardiac arrhythmia I49.9 ASHD (arteriosclerotic heart disease) I25.10 BPH NOS w ur obs/LUTS N40.1 Essential hypertension I10
--- NOTE | 2024-04-12 17:11 | P.CONIM_ITS ---
Providers/Reason For Consult 2 Consulting Physician/Specialty*: Dr. Schaefer Reason for Consult*: Shortness of breath Worsening of LV function New onset of systolic heart failure Atrial fibrillation Mild aortic valve stenosis 1.5 cm? by echocardiogram in March 2024 Requesting Physician: Dr. Schaefer Attending Physician: Sahil Schaefer Primary Care Provider: Leia Camara MD History of Present Illness History of Present Illness Raphael Saldana is a 83 year old male past medical history significant for interstitial pulmonary fibrosis history of CABG 2009 later in 2019 he underwent left heart catheterization was told that grafts are working fine presented with worsening of shortness of breath and hypoxia. He was started on antibiotic got somewhat better but still has increased requirement of oxygen. He underwent echocardiogram which showed new onset of heart failure with moderate LV dysfunction 45%. He has global hypokinesis. It is the reason we have been asked to assist in his care. Patient denies chest pain but admits to orthopnea. Whenever he walks oxygen requirements increase more than usual. Review of Systems 2 General: Reports: 10 or more systems reviewed and unremarkable except in HPI and below Narrative: GENERAL:Denies fevers and chills. Denies weight change. EYES: Denies diplopia or blurred vision.Denies secretions. ENT:Denies earache, sore throat ++ runny nose. No epistaxis. Denies Snoring. NECK: Denies cervicalgia. No decrease of ROM. Denies lumps. CARDIOVASCULAR: Reports no episodes of CP. intermittent LE Edema. Denies Palpitations. PND RESPIRATORY: Reports ++ SOB +++cough sputum production. Reports runny nose GASTROINTESTINAL:No GERD. No nausea, vomits or diarrhea. No constipation GENITOURINARY:No urinary incontinence. Denies Urinary Retention. Denies Hematuria MUSCULOSKELETAL: Reports + weakness. Reports no muscle pain. No recent Fx or injuries SKIN: Claims no rash, ulcerations or unusual skin lesion NEUROLOGIC:Denies headache, numbness or motor deficits. PSYCHIATRIC: Denies Depression, and anxiety. Patient denies suicidal ideation. All/Imm: Denies: acute wheezing Medications/Allergies Home Medications Medication Instructions Recorded Confirmed Last Taken Type aspirin 81 mg tablet,delayed 81 mg PO BID 09/07/19 04/08/24 04/08/24 History release (Adult Low Dose Aspirin) amlodipine 10 mg tablet 10 mg PO DAILY #90 tabs 03/10/20 04/08/24 04/08/24 Rx guaifenesin 600 mg tablet, 600 mg PO Q12H PRN Congestion 07/25/22 04/08/24 Unknown History extended release 12 hr (Mucus Relief ER) tamsulosin 0.4 mg capsule 0.4 mg PO QPM 07/25/22 04/09/24 04/08/24 History fluticasone propionate 50 2 spray intranasal DAILY #16 grams 10/15/22 04/08/24 04/08/24 Rx mcg/actuation nasal spray,suspension (Flonase Allergy Relief) Afflo Vest #1 ea 10/14/23 04/09/24 Unknown Rx albuterol sulfate 90 mcg/actuation 2 puff inhalation Q6H PRN 10/14/23 04/08/24 04/08/24 Rx aerosol inhaler shortness of breath or wheezing #8.5 grams fluticasone 100 mcg-salmeterol 50 1 inh inhalation BID #60 ea 10/14/23 04/08/24 04/08/24 Rx mcg/dose blistr powdr for inhalation (Roshan Inhub) meclizine 25 mg tablet 25 mg PO TID PRN dizziness #14 tabs 01/17/24 04/08/24 Unknown Rx Humidifier for oxygen concentrator #1 ea 03/30/24 04/08/24 Unknown Rx Portable Concentrator Battery #1 ea 03/30/24 04/09/24 Unknown Rx prednisone 10 mg tablet 10 mg PO DAILY #32 tabs 03/30/24 04/08/24 04/08/24 Rx acetaminophen 500 mg tablet 1,000 mg PO DAILY pain 04/08/24 04/08/24 04/07/24 History carbamide peroxide 6.5 % ear drops See Rx Instructions .Route .COMPLEX 04/09/24 04/09/24 Unknown History ipratropium 0.5 mg-albuterol 3 mg 3 ml inhalation QID PRN COPD 04/09/24 04/09/24 Unknown History (2.5 mg base)/3 mL nebulization soln loratadine 10 mg tablet 10 mg PO DAILY 04/09/24 04/09/24 Unknown History metoprolol succinate 50 mg 25 mg PO DAILY 04/09/24 04/09/24 Unknown History tablet,extended release 24 hr paroxetine HCl 12.5 mg See Rx Instructions .Route .COMPLEX 04/09/24 04/09/24 Unknown History tablet,extended release 24 hr zinc sulfate 50 mg zinc (220 mg) 50 mg PO DAILY 04/09/24 04/09/24 Unknown History tablet Allergies Allergy/AdvReac Type Severity Reaction Status Date / Time No Known Allergies Allergy Verified 04/08/24 18:04 Current Medications Generic Name Dose Route Start Last Admin Trade Name Freq PRN Reason Stop Dose Admin Albuterol/Ipratropium 3 ml 04/09/24 20:00 04/12/24 13:28 Ipratropium-Albuterol 3 Ml Neb INHALATION 3 ml TID.RESP ALETHEA Administration Amlodipine Besylate 10 mg 04/09/24 09:00 04/12/24 09:53 Amlodipine 10 Mg Tablet PO 10 mg DAILY ALETHEA Administration Apixaban 5 mg 04/11/24 21:00 04/12/24 09:53 Apixaban 5 Mg Tablet PO 5 mg BID@0900,2100 ALETHEA Administration Aspirin 81 mg 04/09/24 09:00 04/12/24 09:53 Aspirin 81 Mg Ec Tablet PO 81 mg BID ALETHEA Administration Budesonide 0.5 mg 04/09/24 08:00 04/12/24 08:33 Budesonide 0.5 Mg/2 Ml Neb INHALATION 0.5 mg DAILY.RESPIRATORY ALETHEA Administration Furosemide 40 mg 04/09/24 06:00 04/10/24 06:16 Furosemide 10 Mg/Ml Sdv 4ml IVP 40 mg Q24H ALETHEA Administration Guaifenesin 600 mg 04/08/24 23:07 04/11/24 08:44 Guaifenesin 600 Mg Tablet PO 600 mg Q12H PRN Administration Congestion Azithromycin 500 mg/ Sodium 250 mls @ 250 mls/hr 04/09/24 11:00 04/12/24 15:10 Chloride IV 04/14/24 10:59 Infused Q24H ALETHEA Infusion Protocol Methylprednisolone Sodium Succinate 40 mg 04/08/24 22:22 04/12/24 10:17 Methylprednisolone Sod Succ 40 Mg/Ml Inj IVP 40 mg Q6H ALETHEA Administration Metoprolol Tartrate 25 mg 04/09/24 09:00 04/12/24 10:17 Metoprolol Tartrate 25 Mg Tablet PO 25 mg BID@0900,2100 ALETHEA Administration Polyethylene Glycol 17 gm 04/10/24 21:00 04/12/24 10:17 Polyethylene Glycol 3350 Pkt 17 Gm PO Not Given BID ALETHEA Tamsulosin HCl 0.4 mg 04/09/24 09:00 04/12/24 09:53 Tamsulosin 0.4 Mg Capsule PO 0.4 mg BID ALETHEA Administration PFSH Acute 2 PFSH: Medical History (Updated 04/12/24 @ 17:24 by Bobby Ridley MD) Atrial fibrillation, chronic Allergic rhinitis Adverse exposure in workplace Ex-smoker for more than 1 year Pneumonia due to COVID-19 virus GERD (gastroesophageal reflux disease) BPH NOS w ur obs/LUTS Nocturia ASHD (arteriosclerotic heart disease) Hyperlipidemia Tobacco abuse Myocardial infarction Essential hypertension Chest pain CKD (chronic kidney disease) Surgical History S/P CABG (coronary artery bypass graft) Previous back surgery S/P angioplasty with stent Family History Father CAD (coronary artery disease) Other Myocardial infarction Social History Smoking and tobacco/nicotine status: former use of tobacco/nicotine Quit status (tobacco/nicotine): has quit using Year quit tobacco: 1980 [id number] Second hand smoke exposure: No Alcohol intake: never Substance/Drug Use: never Lives independently: Yes Household members: none Marital status: / service: Yes status details: 3 YEARS branch: [employer] Current occupational status: retired Pets and animals: Yes Do you think of yourself as: Straight/Heterosexual Current gender identity: Male Susy/Rastafarian: Yazidi Dietary Habits: Current diet type/program: regular Caffeine: Yes Exercise: What type of physical activity do you participate in?: walking Safety: Seatbelt use: always Home Safety: Working smoke detector in home: Yes Personal Safety: Do you feel safe at home: Yes Vitals/I&O/Wt Last Vital Signs Temp 98.0 F 04/12/24 16:02 Pulse 81 04/12/24 16:02 Resp 18 04/12/24 16:02 BP 139/73 04/12/24 16:02 Pulse Ox 92 04/12/24 16:02 O2 Del Method Nasal Cannula 04/12/24 16:02 O2 Flow Rate 2.5 04/12/24 13:31 FiO2 3 04/09/24 11:25 04/12/24 04/12/24 04/12/24 06:59 14:59 22:59 Intake Total 720 / 720 250 / 970 Output Total 475 / 1565 500 / 500 Balance -475 / -159 220 / 220 250 / 470 Weight last 48 hrs Weight 163 lb 4.8 oz Weight 159 lb 4.8 oz Physical Exam 2 Const: OTHER: GENERAL: Patient is alert, awake and oriented x3. HEART: Irregularly irregular S1 and S2. No murmur, rub or gallop. LUNGS: Inspiratory crackles more on right than left . ABDOMEN: Soft, nontender and nondistended. Positive bowel sounds. No guarding, rebound or tenderness. CENTRAL NERVOUS SYSTEM: Grossly nonfocal. EXTREMITIES: Lower extremities without edema bilaterally. Data 04/12/24 03:47 04/12/24 03:47 A&P Assessment and plan (1) Acute exacerbation of idiopathic pulmonary fibrosis: Treatment as per medicine continue antibiotics and oxygen (2) CHF (congestive heart failure), NYHA class III: New onset of heart failure with LV dysfunction in the patient with prior history of CABG can be multifactorial including ischemic and given by atrial fibrillation since there is global hypokinesis and no wall motion abnormality. Patient is not interested in invasive strategy and would like to be treated medically, will continue to optimize medication at this point I will diurese and start him on medical therapy for heart failure such as Entresto (3) S/P CABG (coronary artery bypass graft): Denies any chest pain history of coronary angiogram in 2019 at the time he was told he has a patent graft, will continue medical management elevated troponin are not impressive and not suggestive of ischemia (4) Atrial fibrillation, chronic: Patient is rate controlled continue current management and anticoagulation Coding Level [facility] Acute exacerbation of idiopathic pulmonary fibrosis J84.112 CHF (congestive heart failure), NYHA class III I50.9 S/P CABG (coronary artery bypass graft) Z95.1 Atrial fibrillation, chronic I48.20
[2024-04-12] MEDS: sacubitril/valsartan 24-26 mg Tablet 1 EACH PO (19:24)
[2024-04-13] VITALS (8 sets, daily range): BP systolic 101–127; BP diastolic 54–77; PULSE 60–79; RESP 16–23; TEMP 36.3–36.7; O2SAT 93–98
[2024-04-13] MEDS: methylPREDNISolone sod succ 40 mg/mL INJ IVP ×2 (04:16→11:53)
[2024-04-13 04:31] LABS: Basophils % 0.1 %; Hematocrit 41.4 % (37-53); Lymphocytes # 0.2 10^3/uL (0.8-4.8); Lymphocytes % 1.7 %; Mean Corpuscular HGB Conc 30.9 g/dL (30-55); Mean Corpuscular Hemoglobin 28.3 pg (27-33); Mean Corpuscular Volume 91.4 fl (82-101); Mean Platelet Volume 10.3 fL (7.4-10.4); Monocytes # 0.4 10^3/uL (0.2-0.9); Monocytes % 3.9 %; Neutrophils # 9.31 10^3/uL (1.8-7.7); Neutrophils % 93.7 %; Nucleated Red Blood Cells % 0 %; Platelet Count 155 10^3/cmm (157-399); Red Blood Count 4.53 10^6/uL (3.85-5.65); Red Cell Distribution Width 14.4 % (12.1-15.1); White Blood Count 9.94 10^3/uL (3.29-11.43)
[2024-04-13 04:44] LABS: Anion Gap 10.6 (5-19); Blood Urea Nitrogen 35 mg/dL (8-23); Calcium 8.8 mg/dL (8.5-10.5); Carbon Dioxide 32 mmol/L (22-29); Chloride 98 mmol/L (98-107); Creatinine Clr Calc Pharmacy 68.7966; Glucose 134 mg/dL (65-115); Osmolality Calculated 292 mOsm/kg (285-295); Potassium 4.6 mmol/L (3.5-5.1); Sodium 136 mmol/L (136-145)
--- NOTE | 2024-04-13 07:33 | P.PN_ITS ---
Subjective 2 Subjective: Patient denies chest pain. Vitals/I&O/Wt Last Vital Signs Temp 97.8 F 04/13/24 04:00 Pulse 70 04/13/24 05:39 Resp 17 04/13/24 04:00 BP 101/54 04/13/24 04:00 Pulse Ox 94 04/13/24 04:00 O2 Del Method Nasal Cannula 04/13/24 04:00 O2 Flow Rate 3 04/12/24 20:05 FiO2 3 04/09/24 11:25 04/12/24 04/13/24 04/13/24 22:59 06:59 14:59 Intake Total 730 / 1450 Output Total 400 / 900 300 / 1200 Balance 330 / 550 -300 / 250 Weight last 48 hrs Weight 162 lb Weight 163 lb 4.8 oz Physical Exam 2 Const: OTHER: GENERAL: Patient is alert, awake and oriented x3. HEART: Irregularly irregular S1 and S2. No murmur, rub or gallop. LUNGS: Inspiratory crackles more on right than left . CENTRAL NERVOUS SYSTEM: Grossly nonfocal. EXTREMITIES: Lower extremities without edema bilaterally. Data 04/13/24 03:10 04/13/24 03:10 A&P Assessment and plan (1) Acute exacerbation of idiopathic pulmonary fibrosis: (2) CHF (congestive heart failure), NYHA class III: (3) S/P CABG (coronary artery bypass graft): (4) Atrial fibrillation, chronic: Plan Continue Eliquis and Entresto. Plan for hospice care. Please call with questions Attestations 2 Medical Necessity Statement*: Care expected to cross 2 midnights. Coding Level of Care Code Acute Code for [facility] Fwd Diagnoses Acute exacerbation of idiopathic pulmonary fibrosis J84.112 CHF (congestive heart failure), NYHA class III I50.9 S/P CABG (coronary artery bypass graft) Z95.1 Atrial fibrillation, chronic I48.20
[2024-04-13] MEDS: ipratropium-albuterol 3 mL Neb INHALATION (08:37)
[2024-04-13] MEDS: budesonide 0.5 mg/2 mL Neb INHALATION (08:37)
[2024-04-13] MEDS: sacubitril/valsartan 24-26 mg Tablet 1 EACH PO (08:58)
[2024-04-13] MEDS: apixaban 5 mg Tablet PO (08:58)
[2024-04-13] MEDS: metoprolol tartrate 25 mg Tablet PO (08:59)
[2024-04-13] MEDS: amlodipine 10 mg Tablet PO (08:59)
[2024-04-13] MEDS: aspirin 81 mg EC Tablet PO (08:59)
--- NOTE | 2024-04-13 09:08 | PC.CHAP ---
Pastoral Care Encounter/Spiritual Assessment Type of Contact [] Declined band master visit [] Patient/Family/Request visit [] Outpatient visit [] Follow-up visit [] Physician referral [] Code/Alert [x] Routine visit [] Staff referral [] Actively dying [] Patient sleeping [] Family support [] [] Out of room [] Palliative care [] [x] Receiving care in room [] Pre-surgical visit [] Trauma [] Long length of stay [] ICU visit [] Other: Relational/Emotional Strength [] Patient feels connected with others/family/visitors/staff [] Distress [] Loneliness/isolation [] Abandonment Spirituality of Patient [] Person of Susy [] Attends Church of their Susy [] Believes in Prayer [] Reads Bible or Cheondoism materials [] There are Spiritual issues to be addressed First Aid Instructor Interventions [x] Prayer [] Active listening [] Non-anxious presence [] Spiritual/emotional support [] Crisis/trauma care [] Spiritual counseling [] Bereavement support [] Provided bereavement packet [] Provided Bible/devotional materials [] Provided toy/stuffed animal, coloring book to patient or family member [] Provided Communion [] Anointing/[place] [] Salvation [] Completed spiritual assessment [] Other: Impact on Illness or Injury [] Angry [] Fearful [] Anxious [] Often cries [] Exhaustion [] Unable to work [] Unable to attend adventist [] Unable to walk/stand [] Unable to read [] Unable to drive [] Unable to eat/drink [] Unable to sleep [] Unable to be with family [] Patient intubated [] Other: Summary Time spent with patient
[2024-04-13 09:59] LABS: Iron 104 ug/dL (59-158); Total Iron Binding Capacity 212 mcg/dl; Unsaturated Iron Binding 108 ug/dL (112-347)
[2024-04-13 10:00] LABS: Estmated Average Glucose 114; Hemoglobin A1C 5.6 % (4.0-6.0)
[2024-04-13 10:16] LABS: Vitamin B12 714 pg/mL (232-1245)
[2024-04-13] MEDS: azithromycin 500 MG in sodium chloride 0.9% 250 ML 250 MG IV (11:52)
--- NOTE | 2024-04-13 13:42 | PM.PN ---
Subjective Subjective: Hospital course, labs appreciated. Today morning patient seen with multiple family numbers at bedside. Patient trying to get to the bathroom for a quick shower. Appreciate hemodynamics. Vitals/I&O/Wt Last Vital Signs Temp 97.6 F 04/13/24 12:00 Pulse 75 04/13/24 12:00 Resp 16 04/13/24 12:00 BP 121/70 04/13/24 12:00 Pulse Ox 97 04/13/24 12:00 O2 Del Method Nasal Cannula 04/13/24 12:00 O2 Flow Rate 4 04/13/24 08:00 FiO2 3 04/09/24 11:25 04/12/24 04/13/24 04/13/24 22:59 06:59 14:59 Intake Total 730 / 1450 970 / 970 Output Total 400 / 900 300 / 1200 200 / 200 Balance 330 / 550 -300 / 250 770 / 770 Weight last 48 hrs Weight 73.482 kg Weight 74.072 kg Physical Exam Narrative: Mildly to moderately hard of hearing. Accompanied by his son and [id number]. Const: COMMON NORMALS: patient oriented x3 and alert GENERAL APPEARANCE: cooperative ORIENTATION/CONSCIOUSNESS: Yes awake HENMT: COMMON NORMALS: oropharynx normal OTHER: Nasal cannula oxygen. Neck/C-Spine: COMMON NORMALS: no JVD Resp: COMMON NORMALS: normal respiratory effort and clear to auscultation bilaterally AUSCULTATION: clear to auscultation bilaterally and crackles (Throughout: Worse on the left) Cardio: COMMON NORMALS: no JVD, regular rhythm, S1 normal heart sound present, S2 normal heart sound present and No murmurs present (Cardio) RHYTHM: regular rhythm HEART SOUNDS: S1 normal heart sound present and S2 normal heart sound present GI: COMMON NORMALS: Normal to inspection, nondistended, normoactive bowel sounds present, Soft to palpation and non-tender PALPATION: Yes Soft to palpation Extremity: COMMON NORMALS: no joint enlargement and no pedal edema Neuro: COMMON NORMALS: patient oriented x3 and moves all extremities SENSORIUM/ORIENTATION: Yes alert Skin: COMMON NORMALS: no rashes or lesions noted GENERAL SKIN EXAM: no rashes or lesions noted Data 04/13/24 03:10 04/13/24 03:10 A&P Assessment and plan (1) Goals of care, counseling/discussion: 33-year-old gentleman admitted for acute on chronic hypoxic resp failure in setting of advanced diabetic pulmonary fibrosis, systolic and diastolic heart failure. Patient is at baseline around 4 to 4.5 L of oxygen supplementation requiring higher oxygen requirement recently. Goals of care discussions done in detail with patient and family at bedside. Patient had decided to pursue hospice care going forward. Case management alerted. Hospice referral. DNR/DNI. (2) Acute on chronic hypoxic respiratory failure: Reviewed vitals, CBC, BMP. Discussed with nursing staff. Attempt ambulation again today, turn up oxygen to 5 to 6 L, reassess oxygenation. Awaiting to be able to resume arrangement for device capable of 10 L flow at home as well as upgrade to his portable oxygen. In the meantime continue IV Solu-Medrol, azithromycin. Reviewed POC glucose. Continue to monitor for risk of hyperglycemia, encephalopathy, hypertension, gastritis with IV steroids. Additionally with new decrease in EF, new A-fib, mild troponin abnormality, some transient EKG changes on presentation, possible pulmonary edema, discussed with certified orthotist, appreciate consultation with regards to assessment for possible ischemic heart disease as contribution to the above. Renal function with noted some improvement, BUN 42, creatinine down to 1.1. Hold off diuretics. Noted worsening ejection fraction on echocardiogram, discussed with him and family. EF down to 45%. Condition decompensated despite being started on prednisone taper as outpatient by pulmonology. In addition to corticosteroid as per discussion with his rubber production machine operator add azithromycin. He does appear to be improving, oxygen saturation 90% on 3 L. Appreciate pulmonary input with regards to progressing IPF. Will need follow-up outpatient as well with regards to progressing IPF. Also on inhaled corticosteroid, DuoNebs. DVT prophylaxis with Lovenox. (3) Acute exacerbation of idiopathic pulmonary fibrosis: As above. Sputum culture if cough becomes productive Low threshold for systemic antibiotics (4) Diastolic dysfunction: With new systolic dysfunction, new atrial fibrillation. Discussed with cardiology, appreciate consultation regarding consideration of ischemic heart disease contributing to the new drop in ejection fraction, new A-fib. Discussed with him possibility of tachycardia induced cardiomyopathy with global LV dysfunction noted on TTE, he does note that his heart rates have been around 100s on pulse oximetry at home, atrial fibrillation with RVR likely at home triggered by progression of pulmonary disease. Here he is doing little bit better, heart rates in the 70s. Continue metoprolol. Discussed additional possibility of coronary disease, ischemic cardiomyopathy, discussed mild ovation of troponin with flat trend, he has remained chest pain-free. Some EKG changes on presentation noted reversible with improvement in oxygenation. Discussed consideration of follow-up with stress testing, follow-up with cardiology. Depending on further goals of care. Reviewed TTE, ejection fraction about 45%, global left ventricular hypokinesis. In presence of atrial fibrillation. Mild aortic valve stenosis, severe calcification. Trace TVR. Mild MVR. Moderately increased left atrial size. Repeat chemistry requested. (5) Cardiac arrhythmia: Continue metoprolol. Discussed risk of stroke, initiation of anticoagulation, risk of anticoagulation. He is agreeable to start Eliquis. Requested. 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 Without history of atrial fibrillation, suspect triggered by progressing along disease. Would benefit from anticoagulation if possible for stroke risk mitigation. Continuous telemetry monitoring Discussed TTE (6) ASHD (arteriosclerotic heart disease): CAD with history of CABG and PCI Continue home aspirin (7) BPH NOS w ur obs/LUTS: Continue Flomax (8) Essential hypertension: Continue home antihypertensives Plan He additionally was reporting some nocturia, discussed with him, has had some urinary frequency getting up to 3 times a night. Continue tamsulosin. Discussed consideration of starting a second medication, follow-up with urology. DVT prophylaxis: Lovenox Plan for the day: Hospice being set up. Meanwhile start patient on Solu-Medrol 40 mg IV every 8 hourly. Will plan on discharge on oral steroid weaning. Regular diet. Monitor heart rate. Continue with Entresto and metoprolol. For supplementation keeping saturation over 88%. Attestations Medical Necessity Statement*: Requires further hospitalization while hospitalized set up in a patient with acute on chronic hypoxic respiratory failure in setting of COPD exacerbation, IPF, systolic and diastolic heart. Diagnoses Goals of care, counseling/discussion Z71.89 Acute on chronic hypoxic respiratory failure J96.21 Acute exacerbation of idiopathic pulmonary fibrosis J84.112 Diastolic dysfunction I51.89 Cardiac arrhythmia I49.9 ASHD (arteriosclerotic heart disease) I25.10 BPH NOS w ur obs/LUTS N40.1 Essential hypertension I10
--- NOTE | 2024-04-13 13:47 | PC.SOCIAL ---
IMM UPDATED IMM dated and initialed and copy placed in chart and given to patient
--- NOTE | 2024-04-13 16:34 | PC.NURSE ---
hand off report provided to 3 [facility] informed them of his 3 new meds.
--- NOTE | 2024-04-13 17:00 | PC.NURSE ---
family ushered pt for discharge via wheelchair. all belongings sent with the pt and his family. pt had his portable oxygen.
== END 2024-04-13 16:36 | disposition hospice, home (50) | DRG 189 ==
LOC: ER 19:34 → CSU 21:17 → MEDSURG 04-11 14:39
PROVIDERS: Internal Medicine; Admitting Provider Internal Medicine; Emergency Provider Emergency Medicine; PCP Family Medicine; Visit Provider Student in an Organized Health Care Education/Training Program
DX: J96.21 Acute and chronic respiratory failure with hypoxia (principal); I50.40 Unspecified combined systolic (congestive) and diastolic (congestive) heart failure; I48.20 Chronic atrial fibrillation, unspecified; N13.8 Other obstructive and reflux uropathy; J44.1 Chronic obstructive pulmonary disease with (acute) exacerbation; E87.1 Hypo-osmolality and hyponatremia; N17.9 Acute kidney failure, unspecified; J84.112 Idiopathic pulmonary fibrosis; I11.0 Hypertensive heart disease with heart failure; I25.5 Ischemic cardiomyopathy; I25.10 Atherosclerotic heart disease of native coronary artery without angina pectoris; N40.1 Benign prostatic hyperplasia with lower urinary tract symptoms; R35.1 Nocturia; E87.8 Other disorders of electrolyte and fluid balance, not elsewhere classified; Z99.81 Dependence on supplemental oxygen; Z66 Do not resuscitate; Z95.1 Presence of aortocoronary bypass graft; Z95.5 Presence of coronary angioplasty implant and graft; Z79.82 Long term (current) use of aspirin; Z87.891 Personal history of nicotine dependence; I25.2 Old myocardial infarction
CPT/HCPCS: 36415; 36600; 71045; 71250; 80048; 80051; 80053; 81001; 82330; 82607; 82805; 83036; 83540; 83550; 83605; 83735; 83880; 84145; 84443; 84484; 85025; 86140; 87040; 87486; 87581; 87633; 93005; 93306; 94640; 94664; 94760; 96365; 96372; 96375; 99285; G0378; J0456; J1650; J1940; J2919; J3490; J7050; J7608; J7613; J7626